=== PATIENT | female | born 1955 | race Caucasian/White ===

== ENCOUNTER 2016-09-29 07:27 | Emergency (ER) | payer MEDICAID ==
[2016-09-29 07:33] VITALS: BMI 30.2
--- NOTE | 2016-09-29 08:07 | ED PDOC ---
Arrival/HPI - General Chief Complaint: Upper Extremity Problem/Injury Time Seen by Provider: 09/29/16 07:29 Historian: Patient - History of Present Illness Narrative History of Present Illness (Text): 09/29/16 08:01 Carina Abbott is a 61 year old female, whose past medical history includes hypertension, diabetes, hyperlipidemia, TIA, diabetic neuropathy, and GERD, presents to the emergency department complaining of right arm swelling and right forearm pain since yesterday. Patient notes that a recent angiogram through the left arm was done 4 days prior, per orders from . Patient also complains of 2 month duration of right shoulder pain. MRI of shoulder for these symptoms showed a supraspinous tear and subcoracoid bursitis. She also complains of right facial numbness, which she notes has been constant since her last stroke. Patient has followed up with orthopedist, Dr. Sue, from [facility] who recommended physical therapy. Denies any fever, chills, headache, dizziness, chest pain, difficulty breathing, nausea, vomiting, diarrhea, urinary symptoms or any other complaints at this time. Time/Duration: Other (yesterday ) Symptom Onset: Gradual Symptom Course: Unchanged Severity Level: Mild Activities at Onset: Light Context: Home Past Medical History - Provider Review Nursing Documentation Reviewed: Yes - Infectious Disease Hx of Infectious Diseases: None - Tetanus Immunization Tetanus Immunization: Unknown - Cardiac Hx Pacemaker: No - Pulmonary Hx Respiratory Disorders: No - Neurological Hx Paralysis: No - HEENT Hx Cataracts: Yes (bilateral surgery) Hx Deafness: Yes (hearing aids) - Renal Hx Renal Disorder: No - Endocrine/Metabolic Hx Endocrine Disorders: Yes Hx Diabetes Mellitus Type 2: Yes - Hematological/Oncological Hx Blood Transfusions: Yes (AGE 32) Hx Blood Transfusion Reaction: No - Integumentary Hx Dermatological Disorder: No - Musculoskeletal/Rheumatological Hx Musculoskeletal Disorders: Yes - Gastrointestinal Hx Gastrointestinal Disorders: Yes Hx Gastroesophageal Reflux: Yes (occasionally with spicy foods) - Genitourinary/Gynecological Hx Genitourinary Disorders: No - Psychiatric Hx Emotional Abuse: No Hx Physical Abuse: No Hx Substance Use: No - Surgical History Hx Cholecystectomy: Yes Hx Gastric Bypass Surgery: Yes Hx Hysterectomy: Yes Other/Comment: hernia surgery; surgery of her nose - Anesthesia Hx Anesthesia Reactions: No Hx Malignant Hyperthermia: No - Suicidal Assessment Feels Threatened In Home Enviroment: No Family/Social History - Physician Review Nursing Documentation Reviewed: Yes Family/Social History: No Known Family HX Smoking Status: Never Smoked Hx Alcohol Use: No Hx Substance Use: No Hx Substance Use Treatment: No Allergies/Home Meds Allergies/Adverse Reactions: Allergies Penicillins Allergy (Verified 09/29/16 07:33) ANAPHYLAXIS Home Medications: Home Meds Medication Instructions Recorded Confirmed Ferrous Sulfate [Feosol] 325 mg PO BID 08/13/16 09/29/16 Glimepiride [Amaryl] 4 mg PO DAILY 08/13/16 09/29/16 Losartan [Cozaar] 50 mg PO DAILY 08/13/16 09/29/16 Omeprazole 40 mg PO DAILY 08/13/16 09/29/16 Pravastatin Sodium [Pravachol] 20 mg PO DAILY 08/13/16 09/29/16 Insulin Glargine, Recombina 14 unit SC ACD 09/18/16 09/29/16 [Lantus] Insulin Glargine, Recombina 20 unit SC ACB 09/18/16 09/29/16 [Lantus] Multivitamin [Daily Divina] 1 tab PO DAILY 09/18/16 09/29/16 Pioglitazone [Actos] 15 mg PO DAILY 09/18/16 09/29/16 Gabapentin [Neurontin] 400 mg PO BID 09/26/16 09/29/16 metFORMIN [glucOPHAGE] 500 mg PO BID 09/26/16 09/29/16 Review of Systems - Review of Systems Constitutional: Normal. absent: Fatigue, Fevers ENT: Other (right sided facial numbness ) Respiratory: absent: SOB, Cough, Sputum Cardiovascular: absent: Chest Pain Gastrointestinal: absent: Diarrhea, Nausea, Vomiting Genitourinary Female: absent: Dysuria Musculoskeletal: Other (right shoulder pain (chronic). Right arm swelling with forearm pain since yesterday. ) Skin: Normal. absent: Rash Psychiatric: Normal Physical Exam - Physical Exam Narrative Physical Exam (Text): Constitutional: No acute distress. Head: Normocephalic. Atraumatic. Eyes: PERRL. ENT: Moist mucous membranes. Neck: Supple. Cardiovascular: Regular rate. Chest: No tenderness. Respiratory: Clear to auscultation bilaterally. GI: Soft. Nontender. Nondistended. Back: No CVA tenderness. Musculoskeletal: Right arm swollen. Full range of motion all joints of right arm. Normal pulses. Neurovascular intact. Skin: No rash. Neurologic: Alert, no focal deficit. Vital Signs Reviewed: Yes Vital Signs Temp Pulse Resp BP Pulse Ox 09/29/16 10:16 97.6 F 82 20 116/58 L 98 09/29/16 08:35 97.5 F L 82 20 118/68 98 Temperature: Afebrile Blood Pressure: Normal Pulse: Regular Respiratory Rate: Normal Appearance: Positive for: Well-Appearing, Non-Toxic, Comfortable Pain Distress: None Mental Status: Positive for: Alert and Oriented X 3 Medical Decision Making ED Course and Treatment: 09/29/16 08:09 Impression: A 61 year old female who presents to the ed complaining of right arm swelling and right forearm pain. Plan: -- Labs -- Duplex Upper extremity -- Reassess and disposition Prior Visits: Notes and results from previous visits were reviewed. Progress Notes: 09/29/16 09:31 Spoke with Berry Kitchen over phone: Negative for DVT. Edema is likely from patient's chronic MSK conditions of the shoulder/neck. No new neurological symptoms. Labs unremarkable. I discussed this case with Dr. Grover via phone, she agrees with plan and states patient can follow up with him in the office. I instructed the patient to return to the ER for worsening pain, new neurological symptoms, cold or discolored arm. - Lab Interpretations Lab Results: 09/29/16 09:01 09/29/16 09:01 Lab Results 09/29/16 09:01: WBC 7.4, RBC 4.08, Hgb 10.2 L, Hct 31.1 L, MCV 76.2 L, MCH 25.0 , MCHC 32.8, RDW 16.3 H, Plt Count 229, MPV 9.2, Gran % 59.8, Lymph % (Auto) 32.4, Grand % (Auto) 6.1 H, Eos % (Auto) 1.6, Baso % (Auto) 0.1, Gran # 4.42, Lymph # 2.4, Grand # 0.5, Eos # 0.1, Baso # 0.01, Sodium 139, Potassium 4.3, Chloride 102, Carbon Dioxide 27, Anion Gap 14, BUN 12, Creatinine 0.6, Est GFR ( Amer) > 60, Est GFR (Non-Af Amer) > 60, Random Glucose 103, Calcium 9.3 , Total Bilirubin 0.7, AST 27, ALT 23, Alkaline Phosphatase 61, Total Protein 7.6, Albumin 3.8, Globulin 3.8, Albumin/Globulin Ratio 1.0 L, Triglycerides 157 , Cholesterol 153, LDL Cholesterol Direct 77, HDL Cholesterol 38 I have reviewed the lab results: Yes - RAD Interpretation Radiology Orders: 09/29/16 07:57 DUPLEX UPPER EXTRM VEIN RIGHT [US] Stat Drafter Marine: Radiologist - [place] Statement The provider has reviewed the documentation as recorded by the [place] Anirudh Mensah Provider Attestation: All medical record entries made by the [place] were at my direction and personally dictated by me. I have reviewed the chart and agree that the record accurately reflects my personal performance of the history, physical exam, medical decision making, and the department course for this patient. I have also personally directed, reviewed, and agree with the discharge instructions and disposition. Disposition/Present on Arrival - Present on Arrival Any Indicators Present on Arrival: No History of DVT/PE: No History of Uncontrolled Diabetes: No Urinary Catheter: No History of Decub. Ulcer: No History Surgical Site Infection Following: None - Disposition Have Diagnosis and Disposition been Completed?: Yes Diagnosis: Swelling of right upper extremity Disposition: HOME/ ROUTINE Disposition Time: 10:21 Patient Plan: Discharge Patient Problems: Current Active Problems Problem Status Diagnosed Right arm numbness Acute Right facial numbness Acute Swelling of right upper extremity Acute TIA (transient ischemic attack) Acute Condition: STABLE Discharge Instructions (ExitCare): Arm Pain (ED) Prescriptions: Methocarbamol [Robaxin-750] 750 mg PO QPM #5 tablet Referrals: Deisi Grover MD [Family Provider] - Follow up with primary
[2016-09-29 09:02] LABS: ADD MANUAL DIFF? NO
[2016-09-29 09:09] LABS: BASO # 0.01 K/mm3 (0.0-2.0); BASO % 0.1 % (0.0-3.0); EOS # 0.1 (0.0-0.7); EOS % 1.6 % (1.5-5.0); GRAN # 4.42 (1.4-6.5); GRAN % 59.8 % (50.0-68.0); HEMATOCRIT 31.1 % (36.0-48.0); LYMPH # 2.4 (1.2-3.4); LYMPH % 32.4 % (22.0-35.0); MEAN CELL VOLUME 76.2 fL (80.0-105.0); MEAN CORPUSCULAR HGB CONC 32.8 g/dl (31.0-37.0); MEAN PLATELET VOLUME 9.2 fl (7.0-11.0); MONO # 0.5 (0.1-0.6); MONO % 6.1 % (1.0-6.0); PLATELET COUNT 229 10^3/uL (120.0-450.0); RED CELL DISTRIBUTION WIDTH 16.3 % (11.5-14.5); WHITE BLOOD COUNT 7.4 10^3/ul (4.5-11.0)
[2016-09-29 09:16] LABS: ALKALINE PHOSPHATASE 61 U/L (38-133); ALT/SGPT 23 U/L (7-56); AST/SGOT 27 U/L (15-39); BILIRUBIN,TOTAL 0.7 mg/dL (0.2-1.3); BLOOD UREA NITROGEN 12 mg/dL (7-21); CALCIUM 9.3 mg/dL (8.4-10.5); CARBON DIOXIDE 27 mmol/L (21-33); CHLORIDE 102 mmol/L (98-107); CHOLESTEROL 153 mg/dL (130-200); GFR AFRICAN-AMERICAN > 60; GLUCOSE,RANDOM 103 mg/dL (70-110); POTASSIUM 4.3 mmol/L (3.6-5.0); SODIUM 139 mmol/L (132-148); TOTAL PROTEIN 7.6 g/dL (5.8-8.3)
[2016-09-29 10:17] VITALS: TEMP 97.6
[2016-09-29 11:26] VITALS: BP 117/67; PULSE 83; RESP 18; O2SAT 97
--- NOTE | 2016-09-29 11:40 | US ---
PROCEDURE: Right upper extremity venous US CLINICAL HISTORY: Arm pain and swelling Evaluate for deep venous thrombosis. PHYSICIAN(S): Nish Bishop M.D FINDINGS: The visualized rightinternal jugular vein is sonographically normal and compressible. No evidence of obstruction or thrombus is seen. The visualized segments of the right subclavian vein are patent with normal waveforms. No sonographic evidence of obstruction or thrombosis is seen. The visualized deep venous system of the proximal right upper extremity is sonographically normal and compressible. IMPRESSION: 1. No sonographic evidence for deep venous thrombosis in the visualized segments of the right upper extremity.
== END 2016-09-29 11:29 | disposition home or self-care (01) ==
LOC: ED 07:27
DX: M79.89 Other specified soft tissue disorders (principal)

== ENCOUNTER 2016-11-09 23:01 | Emergency (ER) | payer MEDICAID ==
[2016-11-10 00:05] VITALS: BMI 29.9
[2016-11-10 00:10] VITALS: BP 113/56; PULSE 84; RESP 16; TEMP 97.9; O2SAT 97
--- NOTE | 2016-11-10 00:34 | ED PDOC ---
Arrival/HPI - General Chief Complaint: Eye Problem Time Seen by Provider: 11/10/16 00:25 Historian: Patient - History of Present Illness Narrative History of Present Illness (Text): 11/10/16 00:36 61yo female present with complaint of eyes irritation x days. States her eyes itches all the time. States she saw her PMD was was given Claritin and using OTC itchy eyes drops without relieve. Denies pain, visual acuity changes ,any other complaint. Past Medical History - Provider Review Nursing Documentation Reviewed: Yes - Infectious Disease Hx of Infectious Diseases: None - Tetanus Immunization Tetanus Immunization: Unknown - Cardiac Hx Pacemaker: No - Pulmonary Hx Respiratory Disorders: No - Neurological Hx Paralysis: No - HEENT Hx Cataracts: Yes (bilateral surgery) Hx Deafness: Yes (hearing aids) - Renal Hx Renal Disorder: No - Endocrine/Metabolic Hx Endocrine Disorders: Yes Hx Diabetes Mellitus Type 2: Yes - Hematological/Oncological Hx Blood Transfusions: Yes (AGE 32) Hx Blood Transfusion Reaction: No - Integumentary Hx Dermatological Disorder: No - Musculoskeletal/Rheumatological Hx Musculoskeletal Disorders: Yes - Gastrointestinal Hx Gastrointestinal Disorders: Yes Hx Gastroesophageal Reflux: Yes (occasionally with spicy foods) - Genitourinary/Gynecological Hx Genitourinary Disorders: No - Psychiatric Hx Emotional Abuse: No Hx Physical Abuse: No Hx Substance Use: No - Surgical History Hx Cholecystectomy: Yes Hx Gastric Bypass Surgery: Yes Hx Hysterectomy: Yes Other/Comment: hernia surgery; surgery of her nose - Anesthesia Hx Anesthesia Reactions: No Hx Malignant Hyperthermia: No - Suicidal Assessment Feels Threatened In Home Enviroment: No Family/Social History - Physician Review Nursing Documentation Reviewed: Yes Family/Social History: Unknown Family HX Smoking Status: Never Smoked Hx Alcohol Use: No Hx Substance Use: No Hx Substance Use Treatment: No Allergies/Home Meds Allergies/Adverse Reactions: Allergies Penicillins Allergy (Verified 11/10/16 00:05) ANAPHYLAXIS Home Medications: Home Meds Medication Instructions Recorded Confirmed Ferrous Sulfate [Feosol] 325 mg PO BID 08/13/16 11/10/16 Glimepiride [Amaryl] 4 mg PO DAILY 08/13/16 11/10/16 Losartan [Cozaar] 50 mg PO DAILY 08/13/16 11/10/16 Omeprazole 40 mg PO DAILY 08/13/16 11/10/16 Pravastatin Sodium [Pravachol] 20 mg PO DAILY 08/13/16 11/10/16 Insulin Glargine, Recombina 14 unit SC ACD 09/18/16 11/10/16 [Lantus] Insulin Glargine, Recombina 20 unit SC ACB 09/18/16 11/10/16 [Lantus] Multivitamin [Daily Divina] 1 tab PO DAILY 09/18/16 11/10/16 Pioglitazone [Actos] 15 mg PO DAILY 09/18/16 11/10/16 Gabapentin [Neurontin] 400 mg PO BID 09/26/16 11/10/16 metFORMIN [glucOPHAGE] 500 mg PO BID 09/26/16 11/10/16 Cetirizine HCl [All Day Allergy 10 mg PO BID 11/10/16 11/10/16 Relief] Ketotifen Fumarate [Ketotifen 1 drop BOTHEYES BID 11/10/16 11/10/16 Fumarate] Propylene Glycol/Peg 400/Pf 1 drop BOTHEYES BID 11/10/16 11/10/16 [Systane 0.3-0.4% Eye Drops] Review of Systems - Physician Review All systems were reviewed & negative as marked: Yes - Review of Systems Constitutional: Normal Eyes: Other (b/l eyes irritation) ENT: Normal Respiratory: Normal Cardiovascular: Normal Gastrointestinal: Normal Genitourinary Female: Normal Musculoskeletal: Normal Skin: Normal Neurological: Normal Endocrine: Normal Hemo/Lymphatic: Normal Psychiatric: Normal Physical Exam Vital Signs Reviewed: Yes Vital Signs Temp Pulse Resp BP Pulse Ox 11/10/16 00:09 97.9 F 84 16 113/56 L 97 Temperature: Afebrile Blood Pressure: Normal Pulse: Regular Respiratory Rate: Normal Appearance: Positive for: Well-Appearing, Non-Toxic, Comfortable Pain Distress: None Mental Status: Positive for: Alert and Oriented X 3 - Systems Exam Head: Present: Atraumatic, Normocephalic Pupils: Present: PERRL Extroacular Muscles: Present: EOMI Conjunctiva: Present: Icteric (B/L redness). No: Injected Mouth: Present: Moist Mucous Membranes Neck: Present: Normal Range of Motion Respiratory/Chest: Present: Clear to Auscultation, Good Air Exchange. No: Respiratory Distress, Accessory Muscle Use Cardiovascular: Present: Regular Rate and Rhythm, Normal S1, S2. No: Murmurs Abdomen: Present: Normal Bowel Sounds. No: Tenderness, Distention, Peritoneal Signs Back: Present: Normal Inspection Upper Extremity: Present: Normal Inspection. No: Cyanosis, Edema Lower Extremity: Present: Normal Inspection. No: Edema Neurological: Present: GCS=15, CN II-XII Intact, Speech Normal Skin: Present: Warm, Dry, Normal Color. No: Rashes Psychiatric: Present: Alert, Oriented x 3, Normal Insight, Normal Concentration Disposition/Present on Arrival - Present on Arrival Any Indicators Present on Arrival: No History of DVT/PE: No History of Uncontrolled Diabetes: No Urinary Catheter: No History of Decub. Ulcer: No History Surgical Site Infection Following: None - Disposition Have Diagnosis and Disposition been Completed?: Yes Diagnosis: Allergic conjunctivitis Disposition: HOME/ ROUTINE Disposition Time: 00:40 Patient Plan: Discharge Condition: STABLE Discharge Instructions (ExitCare): Conjunctivitis (ED) Additional Instructions: Follow up with your Doctor/Heel Seat Flap Stapler Return to ED for any new or worsening symptoms Prescriptions: Olopatadine 0.1% Opht [Patanol 0.1% Opht Soln] 5 ml OD BID #1 bottle Referrals: Ramon Goldstein [Staff Provider] - Follow up with primary
== END 2016-11-10 01:34 | disposition home or self-care (01) ==
LOC: ED 23:01
DX: H10.13 Acute atopic conjunctivitis, bilateral (principal)

== ENCOUNTER 2017-08-23 17:53 | Emergency (ER) | payer MEDICAID ==
[2017-08-23 17:54] VITALS: BMI 29.9
== END 2017-08-23 20:54 | disposition left against medical advice (07) ==
LOC: ED 17:53
DX: Z02.89 Encounter for other administrative examinations (principal); R42 Dizziness and giddiness

== ENCOUNTER 2017-08-23 22:58 | Emergency (ER) | payer MEDICAID ==
[2017-08-23 23:14] VITALS: BMI 30.2
[2017-08-23] MEDS ORDERED: Sodium Chloride 0.9% 1,000 ML IV STA (23:36)
--- NOTE | 2017-08-23 23:41 | ED PDOC ---
Arrival/HPI - General Chief Complaint: GI Problem Time Seen by Provider: 08/23/17 23:02 Historian: Patient, Family - Critical Care Narrative Critical Care (Text): you were treated in the ED today for history of hypertension, diabetes, stroke with right facial numbness, recent hospitalization in [facility] for chest pain, CTA chest negative for pulmonary embolism/consolidation 08/19/17 with discharge for chest pain/gastroenteritis, and now having persistent diarrhea with fatigue and you were otherwise without any nausea/vomiting/headache/ dizziness/difficulty breathing/chest pain/abdomen pain/numbness/tingling/loss of limb function. 08/23/17 23:37 - History of Present Illness Time/Duration: Other (5 days) Symptom Course: Unchanged Activities at Onset: Rest Context: Sitting Past Medical History - Provider Review Nursing Documentation Reviewed: Yes - Travel History Have you recently traveled outside [place] w/in the past 3 mons?: No - Infectious Disease Hx of Infectious Diseases: None - Tetanus Immunization Tetanus Immunization: Unknown - Cardiac Hx Hypertension: Yes Hx Pacemaker: No - Pulmonary Hx Respiratory Disorders: No - Neurological Hx Paralysis: No - HEENT Hx Cataracts: Yes (bilateral surgery) Hx Deafness: Yes (hearing aids) - Renal Hx Renal Disorder: No - Endocrine/Metabolic Hx Endocrine Disorders: Yes Hx Diabetes Mellitus Type 2: Yes - Hematological/Oncological Hx Blood Transfusions: Yes (AGE 32) Hx Blood Transfusion Reaction: No - Integumentary Hx Dermatological Disorder: No - Musculoskeletal/Rheumatological Hx Musculoskeletal Disorders: Yes - Gastrointestinal Hx Gastrointestinal Disorders: Yes Hx Gastroesophageal Reflux: Yes (occasionally with spicy foods) - Genitourinary/Gynecological Hx Genitourinary Disorders: No - Psychiatric Hx Emotional Abuse: No Hx Physical Abuse: No Hx Substance Use: No - Surgical History Hx Cholecystectomy: Yes Hx Gastric Bypass Surgery: Yes Hx Hysterectomy: Yes Other/Comment: hernia surgery; surgery of her nose - Anesthesia Hx Anesthesia Reactions: No Hx Malignant Hyperthermia: No - Suicidal Assessment Feels Threatened In Home Enviroment: No Family/Social History - Physician Review Nursing Documentation Reviewed: Yes Family/Social History: No Known Family HX Smoking Status: Never Smoked Hx Alcohol Use: No Hx Substance Use: No Hx Substance Use Treatment: No Allergies/Home Meds Allergies/Adverse Reactions: Allergies Penicillins Allergy (Verified 08/24/17 01:49) ANAPHYLAXIS Home Medications: Home Meds Medication Instructions Recorded Confirmed Ferrous Sulfate [Feosol] 325 mg PO BID 08/13/16 08/24/17 Glimepiride [Amaryl] 4 mg PO DAILY 08/13/16 08/24/17 Losartan [Cozaar] 50 mg PO DAILY 08/13/16 08/24/17 Omeprazole 40 mg PO DAILY 08/13/16 08/24/17 Pravastatin Sodium [Pravachol] 20 mg PO DAILY 08/13/16 08/24/17 Insulin Glargine, Recombina 14 unit SC ACD 09/18/16 08/24/17 [Lantus] Insulin Glargine, Recombina 20 unit SC ACB 09/18/16 08/24/17 [Lantus] Multivitamin [Daily Divina] 1 tab PO DAILY 09/18/16 08/24/17 Pioglitazone [Actos] 15 mg PO DAILY 09/18/16 08/24/17 Gabapentin [Neurontin] 400 mg PO BID 09/26/16 08/24/17 metFORMIN [glucOPHAGE] 500 mg PO BID 09/26/16 08/24/17 Cetirizine HCl [All Day Allergy 10 mg PO BID 11/10/16 08/24/17 Relief] Ketotifen Fumarate [Ketotifen 1 drop BOTHEYES BID 11/10/16 08/24/17 Fumarate] Propylene Glycol/Peg 400/Pf 1 drop BOTHEYES BID 11/10/16 08/24/17 [Systane 0.3-0.4% Eye Drops] Review of Systems - Review of Systems Constitutional: Fatigue Eyes: Normal ENT: Normal Respiratory: Normal Cardiovascular: Normal Gastrointestinal: Stool Changes Genitourinary Female: Normal Musculoskeletal: Normal Skin: Normal Neurological: Normal Endocrine: Normal Hemo/Lymphatic: Normal Psychiatric: Normal Physical Exam Vital Signs Reviewed: Yes Vital Signs Temp Pulse Resp BP Pulse Ox 08/23/17 23:11 98.2 F 87 20 148/71 95 08/23/17 23:09 98.2 F 86 16 148/71 97 Temperature: Afebrile Blood Pressure: Hypertensive Pulse: Regular Respiratory Rate: Normal Appearance: Positive for: Well-Appearing, Non-Toxic, Comfortable Pain Distress: None Mental Status: Positive for: Alert and Oriented X 3 - Systems Exam Head: Present: Atraumatic, Normocephalic Pupils: Present: PERRL Extroacular Muscles: Present: EOMI Conjunctiva: Present: Normal Ears: Present: Normal Mouth: Present: Moist Mucous Membranes Pharnyx: Present: Normal Nose (External): Present: Atraumatic Nose (Internal): Present: Normal Inspection Neck: Present: Normal Range of Motion Respiratory/Chest: Present: Clear to Auscultation, Good Air Exchange Cardiovascular: Present: Regular Rate and Rhythm Abdomen: No: Tenderness, Distention, Normal Bowel Sounds, Peritoneal Signs, Rebound, Guarding, McBurney's Point Tender, Rovsing's Sign Present, Hernias, Feeding Tubes, Ostomy Tubes, Mass/Organomegaly, Scars, Other Back: Present: Normal Inspection Upper Extremity: Present: Normal Inspection Lower Extremity: Present: Normal Inspection Neurological: Present: GCS=15, CN II-XII Intact, Speech Normal, Motor Func Grossly Intact Skin: Present: Warm, Normal Color Psychiatric: Present: Alert, Oriented x 3, Normal Insight, Normal Concentration Medical Decision Making ED Course and Treatment: you were treated in the ED today for history of hypertension, diabetes, stroke with right facial numbness, recent hospitalization in [facility] for chest pain, CTA chest negative for pulmonary embolism/consolidation 08/19/17 with discharge for chest pain/gastroenteritis, and now having persistent diarrhea with fatigue and you were otherwise without any nausea/vomiting/headache/ dizziness/difficulty breathing/chest pain/abdomen pain/numbness/tingling/loss of limb function. you were sitting up, comfortable, alert/oriented, good strength/sensation, no change in sensation of the face, no abdomen tenderness, pink skin, no fever temp 98.2, stable heart rate 86, stable breathing rate 16, excellent oxygen level 97 room air, elevated blood pressure 148/71 which we recommend followup primary care 2-3 days repeat and determine further treatment , no infection count on blood tests 6.3, stable blood levels hemaglobin/ platelet 9.9/238, stable chemistry, blood sugar 181 mildly elevated, heart blood test normal, radiology ct head no acute findings, ECG normal sinus rhythm , intravenous fluids/observation done in the ED, had a long discussion with Dr. Cartagena who stated you can be admitted to the hospital and you and your daughter wanted to go home and thus Dr. Cartagena stated you can call her office this Friday to make earliest appointment and counselled to drink fluids and advance diet as tolerated, and discharged home with your daughter. 1. recommend followup primary care 1-2 days to determine further care. 2. if any worsening pain, fever, chills, nausea, vomiting, any medical condition then return to the ED. 08/24/17 03:11 ct head (1) Nonspecific white matter changes. No acute bleeding Reassessment Condition: Improved - Lab Interpretations Lab Results: 08/24/17 00:00 08/24/17 00:00 Lab Results 08/24/17 00:00: Sodium 139, Potassium 4.1, Chloride 106, Carbon Dioxide 23, Anion Gap 14, BUN 17, Creatinine 0.7, Est GFR ( Amer) > 60, Est GFR (Non- Af Amer) > 60, Random Glucose 181 H, Calcium 9.5, Magnesium 1.3 L, Total Bilirubin 0.5, AST 29, ALT 37, Alkaline Phosphatase 55, Lactate Dehydrogenase 483, Total Creatine Kinase 83, Troponin I < 0.01, Total Protein 6.9, Albumin 3.4 , Globulin 3.5, Albumin/Globulin Ratio 1.0 L 08/24/17 00:00: PT 13.2 H, INR 1.15 H, APTT 25.8 08/24/17 00:00: WBC 6.3, RBC 3.86, Hgb 9.9 L, Hct 30.3 L, MCV 78.5 L, MCH 25.6, MCHC 32.7, RDW 14.7 H, Plt Count 238, MPV 9.9, Gran % 48.3 L, Lymph % (Auto) 38.9 H, Lanier % (Auto) 9.8 H, Eos % (Auto) 2.7, Baso % (Auto) 0.3, Gran # 3.02, Lymph # (Auto) 2.4, Lanier # (Auto) 0.6, Eos # (Auto) 0.2, Baso # (Auto) 0.02 I have reviewed the lab results: Yes - RAD Interpretation Radiology Orders: 08/23/17 23:35 HEAD W/O CONTRAST [CT] Stat Belt Dresser: Radiologist - EKG Interpretation Interpreted by ED Physician: Yes (NSR) Type: 12 lead EKG - Medication Orders Current Medication Orders: Discontinued Medications Sodium Chloride (Sodium Chloride 0.9%) 1,000 mls @ 999 mls/hr IV .Q1H1M STA Stop: 08/24/17 00:36 Last Admin: 08/24/17 00:51 Dose: 999 mls/hr eMAR Start Stop Document 08/24/17 00:51 AB (Rec: 08/24/17 00:51 AB [facility] [id number]) Intravenous Solution Start Date 08/24/17 Start Time 00:51 End Date 08/24/17 Magnesium Sulfate/Dextrose (Magnesium Sulfate 1 Gm/100 Ml D5w) 1 gm in 100 mls @ 100 mls/hr IVPB ONCE ONE Stop: 08/24/17 02:18 Last Admin: 08/24/17 01:45 Dose: 100 mls/hr eMAR Start Stop Document 08/24/17 01:45 AB (Rec: 08/24/17 01:45 AB [facility] [id number]) Intravenous Solution Start Date 08/24/17 Start Time 01:45 End Date 08/24/17 End time 02:45 Total Infusion Time 60 Disposition/Present on Arrival - Present on Arrival Any Indicators Present on Arrival: No History of DVT/PE: No History of Uncontrolled Diabetes: No Urinary Catheter: No History of Decub. Ulcer: No History Surgical Site Infection Following: None - Disposition Have Diagnosis and Disposition been Completed?: Yes Diagnosis: Gastroenteritis Disposition: HOME/ ROUTINE Disposition Time: 03:15 Patient Plan: Discharge Patient Problems: Current Active Problems Problem Status Onset Gastroenteritis Acute Condition: IMPROVED Additional Instructions: you were treated in the ED today for history of hypertension, diabetes, stroke with right facial numbness, recent hospitalization in [facility] for chest pain, CTA chest negative for pulmonary embolism/consolidation 08/19/17 with discharge for chest pain/gastroenteritis, and now having persistent diarrhea with fatigue and you were otherwise without any nausea/vomiting/headache/ dizziness/difficulty breathing/chest pain/abdomen pain/numbness/tingling/loss of limb function. you were sitting up, comfortable, alert/oriented, good strength/sensation, no change in sensation of the face, no abdomen tenderness, pink skin, no fever temp 98.2, stable heart rate 86, stable breathing rate 16, excellent oxygen level 97 room air, elevated blood pressure 148/71 which we recommend followup primary care 2-3 days repeat and determine further treatment , no infection count on blood tests 6.3, stable blood levels hemaglobin/ platelet 9.9/238, stable chemistry, blood sugar 181 mildly elevated, heart blood test normal, radiology ct head no acute findings, ECG normal sinus rhythm , intravenous fluids/observation done in the ED, had a long discussion with Dr. Cartagena who stated you can be admitted to the hospital and you and your daughter wanted to go home and thus Dr. Cartagena stated you can call her office this Friday to make earliest appointment and counselled to drink fluids and advance diet as tolerated, and discharged home with your daughter. 1. recommend followup primary care 1-2 days to determine further care. 2. if any worsening pain, fever, chills, nausea, vomiting, any medical condition then return to the ED. Referrals: Deisi Grover MD [Primary Care Provider] - Follow up with primary Forms: [employer] (Slovenian)
[2017-08-24 01:02] LABS: BASO # 0.02 K/mm3 (0.0-2.0); BASO % 0.3 % (0.0-3.0); EOS # 0.2 (0.0-0.7); EOS % 2.7 % (1.5-5.0); GRAN # 3.02 (1.4-6.5); GRAN % 48.3 % (50.0-68.0); HEMOGLOBIN 9.9 g/dL (12.0-16.0); LYMPH # 2.4 (1.2-3.4); LYMPH % 38.9 % (22.0-35.0); MEAN CELL VOLUME 78.5 fl (80.0-105.0); MEAN CORPUSCULAR HEMOGLOBIN 25.6 pg (25.0-35.0); MEAN CORPUSCULAR HGB CONC 32.7 g/dl (31.0-37.0); MEAN PLATELET VOLUME 9.9 fl (7.0-11.0); MONO # 0.6 (0.1-0.6); MONO % 9.8 % (1.0-6.0); RBC 3.86 10^6/uL (3.5-6.1); RED CELL DISTRIBUTION WIDTH 14.7 % (11.5-14.5); WHITE BLOOD COUNT 6.3 10^3/ul (4.5-11.0)
[2017-08-24 01:12] LABS: INR 1.15 (0.93-1.08); PARTIAL THROMBOPLASTIN TIME 25.8 Seconds (25.1-36.5); PROTHROMBIN TIME 13.2 SECONDS (9.4-12.5)
[2017-08-24 01:13] LABS: ALBUMIN 3.4 g/dL (3.0-4.8); ALT/SGPT 37 U/L (7-56); AST/SGOT 29 U/L (14-36); BLOOD UREA NITROGEN 17 mg/dL (7-21); CALCIUM 9.5 mg/dL (8.4-10.5); GFR AFRICAN-AMERICAN > 60; GFR NON-AFRICAN AMERICAN > 60; MAGNESIUM 1.3 mg/dL (1.7-2.2)
[2017-08-24] MEDS ORDERED: Magnesium Sulfate 1 gm in D5W 1 GM/100 ML BAG IVPB ONE (01:19)
[2017-08-24 01:24] LABS: TROPONIN I < 0.01 ng/mL
--- NOTE | 2017-08-24 02:21 | CT ---
EXAM: CT Head Without Intravenous Contrast CLINICAL HISTORY: 61 years old, female; Signs and symptoms; Weakness, extremity; Additional info: 61yof, weakness TECHNIQUE: Axial computed tomography images of the head/brain without intravenous contrast. All CT scans at this facility use one or more dose reduction techniques, viz.: automated exposure control; ma/kV adjustment per patient size (including targeted exams where dose is matched to indication; i.e. head); or iterative reconstruction technique. Coronal and sagittal reformatted images were created and reviewed. COMPARISON: CT - HEAD W/O CONTRAST 2016-08-13 19:26 FINDINGS: Brain: Mild atrophy. No intracranial hemorrhage. No mass. Minimal decreased attenuation within periventricular white matter. Probable chronic lacunar infarcts within thalami. No definite edema. Ventricles: No hydrocephalus. Bones/joints: No acute fracture. Soft tissues: Unremarkable. Vasculature: Mild atherosclerotic disease of intracranial arteries. Sinuses: Scattered minimal mucosal thickening. Mastoid air cells: No mastoid effusion. Orbits: Unremarkable as visualized. IMPRESSION: 1. Nonspecific white matter changes. Acute infarction may be CT occult within first 24 hours. If a focal deficit persists, consider followup CT or MRI for further evaluation. 2. Incidental/non-acute findings are described above.
[2017-08-24 03:34] VITALS: RESP 16; TEMP 98.6; O2SAT 100
[2017-08-24 03:35] VITALS: BP 138/80; PULSE 78
--- NOTE | 2017-08-24 21:36 | CARD ---
APPROVED REPORT EKG Measurement Heart [id number] <Conclusion> Normal sinus rhythm Normal ECG
== END 2017-08-24 03:34 | disposition home or self-care (01) ==
LOC: ED 22:58
DX: K52.9 Noninfective gastroenteritis and colitis, unspecified (principal)
CPT/HCPCS: 70450; 80053; 82550; 83615; 83735; 84484; 85025; 85610; 85730; 93005; 96365; 99284; J3475; J7040

== ENCOUNTER 2017-09-22 18:36 | Inpatient (IN) | payer MEDICAID ==
[2017-09-22 18:36] VITALS: BMI 29.9
[2017-09-22] MEDS: Sodium Chloride 0.9% 1,000 ML IV SCH (19:15)
[2017-09-22 19:45] LABS: BASO # 0.02 K/mm3 (0.0-2.0); BASO % 0.3 % (0.0-3.0); EOS # 0.2 (0.0-0.7); EOS % 2.5 % (1.5-5.0); GRAN # 4.71 (1.4-6.5); GRAN % 59.2 % (50.0-68.0); HEMOGLOBIN 10.9 g/dL (12.0-16.0); LYMPH # 2.6 (1.2-3.4); LYMPH % 33.2 % (22.0-35.0); MEAN CELL VOLUME 79.9 fl (80.0-105.0); MEAN CORPUSCULAR HEMOGLOBIN 26.1 pg (25.0-35.0); MEAN CORPUSCULAR HGB CONC 32.7 g/dl (31.0-37.0); MEAN PLATELET VOLUME 10.5 fl (7.0-11.0); MONO # 0.4 (0.1-0.6); MONO % 4.8 % (1.0-6.0); RBC 4.17 10^6/uL (3.5-6.1); RED CELL DISTRIBUTION WIDTH 14.9 % (11.5-14.5)
[2017-09-22] MEDS ORDERED: Iohexol 350 MG/100 ML VIAL ONE (19:47)
--- NOTE | 2017-09-22 19:49 | ED PDOC ---
Arrival/HPI - General Chief Complaint: Weakness/Neurological Deficit Time Seen by Provider: 09/22/17 19:04 Historian: Patient - History of Present Illness Narrative History of Present Illness (Text): 62 y/o female w/ pmhx of HTN, HLD, DM, CVA W/ residual rt sided tongue numbness/ rt. UE numbness/ R Le numbness presents c/o rt sided tongue numbness/ rt. sided UE numbness (most pronounced in fingertips, median nerve teriitory ) , as weel as rt lateral thigh and calf , time of onset being in the am of friday past (). Pt also relates how in the past 48 hours she Pt denies any headache / nasuea/cp/palpitations / or any recent symptoms of infective foci. ros (+) chrocni rt shoulder/rt trapezoidal pain. 09/22/17 19:47 09/22/17 19:52 09/22/17 19:56 09/22/17 19:57 Time/Duration: < week Symptom Course: Unchanged Quality: Other (not painful ) Past Medical History - Provider Review Nursing Documentation Reviewed: Yes - Infectious Disease Hx of Infectious Diseases: None - Tetanus Immunization Tetanus Immunization: Unknown - Cardiac Hx Hypertension: Yes Hx Pacemaker: No - Pulmonary Hx Respiratory Disorders: No - Neurological Hx Paralysis: No - HEENT Hx Cataracts: Yes (bilateral surgery) Hx Deafness: Yes (hearing aids) - Renal Hx Renal Disorder: No - Endocrine/Metabolic Hx Endocrine Disorders: Yes Hx Diabetes Mellitus Type 2: Yes - Hematological/Oncological Hx Blood Transfusions: Yes (AGE 32) Hx Blood Transfusion Reaction: No - Integumentary Hx Dermatological Disorder: No - Musculoskeletal/Rheumatological Hx Musculoskeletal Disorders: Yes - Gastrointestinal Hx Gastrointestinal Disorders: Yes Hx Gastroesophageal Reflux: Yes (occasionally with spicy foods) - Genitourinary/Gynecological Hx Genitourinary Disorders: No - Psychiatric Hx Emotional Abuse: No Hx Physical Abuse: No Hx Substance Use: No - Surgical History Hx Cholecystectomy: Yes Hx Gastric Bypass Surgery: Yes Hx Hysterectomy: Yes Other/Comment: hernia surgery; surgery of her nose - Anesthesia Hx Anesthesia Reactions: No Hx Malignant Hyperthermia: No - Suicidal Assessment Feels Threatened In Home Enviroment: No Family/Social History - Physician Review Nursing Documentation Reviewed: Yes Family/Social History: No Known Family HX Smoking Status: Never Smoked Hx Alcohol Use: No Hx Substance Use: No Hx Substance Use Treatment: No Allergies/Home Meds Allergies/Adverse Reactions: Allergies Penicillins Allergy (Verified 08/24/17 01:49) ANAPHYLAXIS Home Medications: Home Meds Medication Instructions Recorded Confirmed Ferrous Sulfate [Feosol] 325 mg PO BID 08/13/16 08/24/17 Glimepiride [Amaryl] 4 mg PO DAILY 08/13/16 08/24/17 Losartan [Cozaar] 50 mg PO DAILY 08/13/16 08/24/17 Omeprazole 40 mg PO DAILY 08/13/16 08/24/17 Pravastatin Sodium [Pravachol] 20 mg PO DAILY 08/13/16 08/24/17 Insulin Glargine, Recombina 14 unit SC ACD 09/18/16 08/24/17 [Lantus] Insulin Glargine, Recombina 20 unit SC ACB 09/18/16 08/24/17 [Lantus] Multivitamin [Daily Divina] 1 tab PO DAILY 09/18/16 08/24/17 Pioglitazone [Actos] 15 mg PO DAILY 09/18/16 08/24/17 Gabapentin [Neurontin] 400 mg PO BID 09/26/16 08/24/17 metFORMIN [glucOPHAGE] 500 mg PO BID 09/26/16 08/24/17 Cetirizine HCl [All Day Allergy 10 mg PO BID 11/10/16 08/24/17 Relief] Ketotifen Fumarate [Ketotifen 1 drop BOTHEYES BID 11/10/16 08/24/17 Fumarate] Propylene Glycol/Peg 400/Pf 1 drop BOTHEYES BID 11/10/16 08/24/17 [Systane 0.3-0.4% Eye Drops] Review of Systems - Physician Review All systems were reviewed & negative as marked: Yes - Review of Systems Constitutional: Normal Eyes: Normal ENT: Normal Respiratory: Normal Cardiovascular: Normal Gastrointestinal: Normal Genitourinary Female: Normal Musculoskeletal: Normal Skin: Normal Neurological: Focal Weakness Endocrine: Normal Hemo/Lymphatic: Normal Psychiatric: Normal Physical Exam Vital Signs Reviewed: Yes Vital Signs Temp Pulse Resp BP Pulse Ox 09/22/17 18:58 98.4 F 97 H 18 150/70 98 Temperature: Afebrile Blood Pressure: Normal Pulse: Regular Respiratory Rate: Normal Appearance: Positive for: Well-Appearing, Non-Toxic, Comfortable Pain Distress: None Mental Status: Positive for: Alert and Oriented X 3 - Systems Exam Head: Present: Atraumatic, Normocephalic Pupils: Present: PERRL Extroacular Muscles: Present: EOMI Conjunctiva: Present: Normal Mouth: Present: Moist Mucous Membranes Neck: Present: Normal Range of Motion Respiratory/Chest: Present: Clear to Auscultation, Good Air Exchange. No: Respiratory Distress, Accessory Muscle Use Cardiovascular: Present: Regular Rate and Rhythm, Normal S1, S2. No: Murmurs Abdomen: Present: Normal Bowel Sounds. No: Tenderness, Distention, Peritoneal Signs Back: Present: Normal Inspection Upper Extremity: Present: Normal Inspection. No: Cyanosis, Edema Lower Extremity: Present: Normal Inspection. No: Edema Neurological: Present: GCS=15, CN II-XII Intact, Speech Normal, Motor Func Grossly Intact, Normal Cerebellar Funct, Norm Deep Tendon Reflexes, Gait Normal , Other (nihss of 1 for patchy sensory deficits in rt soded of tongue tip/rt palm/ rt 1st 3 finger tips/rt lateral LE ) ) Skin: Present: Warm, Dry, Normal Color. No: Rashes Psychiatric: Present: Alert, Oriented x 3, Normal Insight, Normal Concentration Medical Decision Making ED Course and Treatment: 61 y/o woman w/ pmh xof cva among other comorbidities presenting w/ recurring symptomatology suspicious for subacute cvs head ct cta head/neck cardiac w/u risk stratify w/ standard labs cxr ekg stroke neurologist confirmation . 09/22/17 19:59 - Lab Interpretations Lab Results: 09/22/17 19:10 09/22/17 19:10 Lab Results 09/22/17 19:10: Blood Type A POSITIVE, Antibody Screen Negative, BBK History Checked Patient has bt 09/22/17 19:10: Sodium 139, Potassium 3.7, Chloride 100, Carbon Dioxide 28, Anion Gap 15, BUN 19, Creatinine 0.5 L, Est GFR ( Amer) > 60, Est GFR ( Non-Af Amer) > 60, Random Glucose 232 H, Calcium 9.6, Total Bilirubin 0.6, AST 33, ALT 39, Alkaline Phosphatase 51, Troponin I < 0.01, NT-Pro-B Natriuret Pep 27.3, Total Protein 7.6, Albumin 4.1, Globulin 3.5, Albumin/Globulin Ratio 1.2, Triglycerides 235 H, Cholesterol 185, LDL Cholesterol Direct 95, HDL Cholesterol 47 09/22/17 19:10: PT 12.9 H, INR 1.13 H, APTT 28.1 09/22/17 19:10: WBC 8.0 D, RBC 4.17, Hgb 10.9 L, Hct 33.3 L, MCV 79.9 L, MCH 26.1, MCHC 32.7, RDW 14.9 H, Plt Count 233, MPV 10.5, Gran % 59.2, Lymph % (Auto ) 33.2, Garvin % (Auto) 4.8, Eos % (Auto) 2.5, Baso % (Auto) 0.3, Gran # 4.71, Lymph # (Auto) 2.6, Garvin # (Auto) 0.4, Eos # (Auto) 0.2, Baso # (Auto) 0.02 - RAD Interpretation Radiology Orders: 09/22/17 19:04 CHEST PORTABLE [RAD] Stat 09/22/17 19:06 CTA HEAD & NECK BUNDLE [CT] Stat 09/22/17 19:07 HEAD W/O CONTRAST [CT] Stat - Medication Orders Current Medication Orders: Sodium Chloride (Sodium Chloride 0.9%) 1,000 mls @ 100 mls/hr IV .Q10H [facility] NIHSS Scale ([place]) Time Performed: 18:30 - How Severe is the Stoke Baseline Level of Consciousness: 0=Alert LOC to Questions: 0=Both comments correct LOC to commands: 0=Obeys both correctly Best Gaze: 0=Normal Visual: 0=No visual loss Facial: 0=Normal Motor Arm - Left: 0=No drift Motor Arm - Right: 0=No drift Motor Leg - Left: 0=No drift Motor Leg - Right: 0=No drift Limb Ataxia: 0=Absent Sensory: 1=Mild to moderate loss Best Language: 0=No aphasia Dysarthia: 0=Normal articulation Extinction & Inattention (Neglect): 0=Normal, no object Score: 1 Risk Level: Minor Stroke Risk Disposition/Present on Arrival - Present on Arrival Any Indicators Present on Arrival: No History of DVT/PE: No History of Uncontrolled Diabetes: No Urinary Catheter: No History of Decub. Ulcer: No History Surgical Site Infection Following: None - Disposition Have Diagnosis and Disposition been Completed?: Yes Diagnosis: CVA (cerebral vascular accident) Disposition: HOSPITALIZED Disposition Time: 21:40 Patient Plan: Admission Condition: FAIR Referrals: Deisi Grover MD [Primary Care Provider] - Follow up with primary Forms: [employer] (Persian)
[2017-09-22 19:58] LABS: INR 1.13 (0.93-1.08); PARTIAL THROMBOPLASTIN TIME 28.1 Seconds (25.1-36.5); PROTHROMBIN TIME 12.9 SECONDS (9.4-12.5)
[2017-09-22 20:05] LABS: LDL CHOLESTEROL 95 mg/dL (0-129)
[2017-09-22 20:06] LABS: ALB/GLOB RATIO 1.2 (1.1-1.8); ALBUMIN 4.1 g/dL (3.0-4.8); ALT/SGPT 39 U/L (7-56); AST/SGOT 33 U/L (14-36); BLOOD UREA NITROGEN 19 mg/dL (7-21); CALCIUM 9.6 mg/dL (8.4-10.5); GFR AFRICAN-AMERICAN > 60; GFR NON-AFRICAN AMERICAN > 60; HDL CHOLESTEROL 47 mg/dL (29-60)
[2017-09-22 20:08] LABS: B-TYPE NATRIURETIC PEPTIDE 27.3 pg/mL (0-450); TROPONIN I < 0.01 ng/mL
--- NOTE | 2017-09-22 21:47 | CT ---
EXAM: CT Head Without Intravenous Contrast CLINICAL HISTORY: 62 years old, female; Signs and symptoms; Weakness, extremity; Right; Additional info: CVA like symptoms TECHNIQUE: Axial computed tomography images of the head/brain without intravenous contrast. All CT scans at this facility use one or more dose reduction techniques, viz.: automated exposure control; ma/kV adjustment per patient size (including targeted exams where dose is matched to indication; i.e. head); or iterative reconstruction technique. Coronal and sagittal reformatted images were created and reviewed. COMPARISON: CT - HEAD W/O CONTRAST 2017-08-24 01:15 FINDINGS: Brain: Mild atrophy. No intracranial hemorrhage. No mass. Minimal decreased attenuation within periventricular white matter. Probable chronic lacunar infarcts within thalami. No definite edema. Ventricles: No hydrocephalus. Bones/joints: No acute fracture. Soft tissues: Unremarkable. Vasculature: Mild atherosclerotic disease of intracranial arteries. Sinuses: Scattered minimal mucosal thickening. Mastoid air cells: No mastoid effusion. Orbits: Unremarkable as visualized. IMPRESSION: 1. Nonspecific white matter changes. Acute infarction may be CT occult within first 24 hours. If a focal deficit persists, consider followup CT or MRI for further evaluation. 2. Incidental/non-acute findings are described above.
--- NOTE | 2017-09-22 22:30 | CT ---
EXAM: CT Angiography Head With Intravenous Contrast CLINICAL HISTORY: The patient age is 62 years old and is female; Signs and symptoms; Weakness; Patient HX: Right side weakness; Additional info: CVA like symptoms outside tpa window Facility exam id and description: [facility] head neck bundle TECHNIQUE: Axial computed tomographic angiography images of the head with intravenous contrast using CT angiography protocol. All CT scans at this facility use one or more dose reduction techniques, viz.: automated exposure control; ma/kV adjustment per patient size (including targeted exams where dose is matched to indication; i.e. head); or iterative reconstruction technique. MIP reconstructed images were created and reviewed. Coronal and sagittal reformatted images were created and reviewed. CONTRAST: 100 mL of OMNI administered intravenously. COMPARISON: CT - HEAD W/O CONTRAST 2017-09-22 20:50 FINDINGS: Right internal carotid artery: There is atherosclerosis of the bilateral intracranial internal carotid arteries, with less than 50% stenosis bilaterally. No aneurysm. Right anterior cerebral artery: No occlusion or significant stenosis. No aneurysm. Right middle cerebral artery: There is stenosis of a proximal right M2 branch of the middle cerebral artery. There is no significant stenosis of the right M1 segment. No aneurysm. Right posterior cerebral artery: No occlusion or significant stenosis. No aneurysm. Right vertebral artery: No occlusion or significant stenosis. Left internal carotid artery: See above. Left anterior cerebral artery: No occlusion or significant stenosis. No aneurysm. Left middle cerebral artery: No occlusion or significant stenosis. No aneurysm. Left posterior cerebral artery: No occlusion or significant stenosis. No aneurysm. Left vertebral artery: No occlusion or significant stenosis. Basilar artery: There is increased tortuosity of the basilar artery. No occlusion or significant stenosis. IMPRESSION: 1. There is stenosis of a proximal right M2 branch of the middle cerebral artery. 2. There is atherosclerosis of the bilateral intracranial internal carotid arteries, with less than 50% stenosis bilaterally. 3. Incidental/non-acute findings are described above. EXAM: CT Angiography Neck With Intravenous Contrast EXAM DATE/TIME: 09/22/2017 7:06 PM CLINICAL HISTORY: The patient age is 62 years old and is female; Signs and symptoms; Weakness; Patient HX: Right side weakness; Additional info: CVA like symptoms outside tpa window Facility exam id and description: [facility] head neck bundle TECHNIQUE: Axial computed tomographic angiography images of the neck with intravenous contrast using CT angiography protocol. All CT scans at this facility use one or more dose reduction techniques, viz.: automated exposure control; ma/kV adjustment per patient size (including targeted exams where dose is matched to indication; i.e. head); or iterative reconstruction technique. MIP reconstructed images were created and reviewed. Coronal and sagittal reformatted images were created and reviewed. CONTRAST: 100 mL of OMNI administered intravenously. COMPARISON: CT - HEAD W/O CONTRAST 2017-09-22 20:50 FINDINGS: Limitations: There is a limited evaluation of the left subclavian artery due to adjacent venous enhancement. VASCULATURE: Right common carotid artery: Artifact limits evaluation of the proximal right common carotid artery. There is no significant stenosis or occlusion of this vessel. Right internal carotid artery: Mild atherosclerotic changes are identified of the proximal right internal carotid artery, with mild stenosis. The degree of stenosis is approximately 30%. No dissection or occlusion. Right external carotid artery: No occlusion. Right vertebral artery: No occlusion or significant stenosis. Left common carotid artery: No significant stenosis. No dissection or occlusion. Left internal carotid artery: There is atherosclerosis of the proximal left internal carotid artery, with approximately 50% stenosis. No dissection or occlusion. Left external carotid artery: No occlusion. Left vertebral artery: No occlusion or significant stenosis. NECK: Bones/joints: Spondylosis is visualized at multiple cervical levels. There is slight reversal of the lordotic curvature of the cervical spine. Lymph nodes: Scattered mediastinal lymph nodes are identified, a few which are mildly enlarged. These lymph nodes are nonspecific as to etiology. Sinuses: There is minimal mucosal thickening of the bilateral maxillary sinuses. Oropharynx: Calcifications are identified within the bilateral palatine tonsils. Hypopharynx: There is effacement of the left piriform sinus. CAROTID STENOSIS REFERENCE USING NASCET CRITERIA: % ICA stenosis = (1 - narrowest ICA diameter/diameter of distal cervical ICA) x 100. Mild - <50% stenosis. Moderate - 50-69% stenosis. Severe - 70-94% stenosis. Near occlusion - 95-99% stenosis. Occluded - 100% stenosis. IMPRESSION: 1. Mild atherosclerotic changes are identified of the proximal right internal carotid artery, with mild stenosis. The degree of stenosis is approximately 30%. 2. There is atherosclerosis of the proximal left internal carotid artery, with approximately 50% stenosis. 3. Scattered mediastinal lymph nodes are identified, a few which are mildly enlarged. These lymph nodes are nonspecific as to etiology. 4. There is effacement of the left piriform sinus. Further clinical evaluation is recommended. 5. Incidental/non-acute findings are described above.
--- NOTE | 2017-09-23 00:11 | CP.PCM.HP ---
History of Present Illness - History of Present Illness History of Present Illness: Koko DominguezJose Carlos PGY1 H&P Note for Hospitalist Service cc: right hand and tongue tingling x3 days Ms. Abbott is a 62 year old female with a PMH of TIA, uncontrolled diabetes mellitus, HTN, HLD, GERD, arthritis, obesity, depression and hepatitis C ( treated) who presented to ED with complaints of right sided tongue numbness and RUE numbness x3 days. The patient states that she had a similar episode last year when she was diagnosed with "mini stroke". She states that she takes Gabapentin for diabetic neuropathy but states that this numbness felt different. She denies weakness and has pain w/ her RUE movement more related to arthritis than neurovascular etiology. NIHSS done by ED MD was 1. Patient not a candidate for tPA given timeline of presentation. she denies recent illness, chest pain, shortness of breath, n/v, changes in vision or other complaints. 12- pt ROS was reviewed and is otherwise unremarkable. Past chart review shows: diagnostic cath in 09/2016 showed non-obstructive CAD w / preserved EF 65%. MRI of brain 08/2016 from time of TIA shows acute lacunar infarct. Carotid US from that time shows b/l 40-59% ICA stenoses. PMD: Dr. Grover PMH: as above PSH: gastric bypass, hernia repair, cholecystectomy Meds: as per MAR allergy: PCN SHx: denies tobacco, ETOH or illicit drug use Present on Admission - Present on Admission Any Indicators Present on Admission: Yes History of Uncontrolled Diabetes: Yes Review of Systems - Review of Systems All systems: reviewed and no additional remarkable complaints except (as per HPI ) Past Patient History - Infectious Disease Hx of Infectious Diseases: None - Tetanus Immunizations Tetanus Immunization: Unknown - Past Social History Smoking Status: Never Smoked Alcohol: None Drugs: Denies - CARDIAC Hx Hypercholesterolemia: Yes Hx Hypertension: Yes Hx Pacemaker: No - PULMONARY Hx Respiratory Disorders: No - NEUROLOGICAL Hx Paralysis: No Hx Transient Ischemic Attacks (TIA): Yes - HEENT Hx Cataracts: Yes (bilateral surgery) Hx Deafness: Yes (hearing aids) - RENAL Hx Chronic Kidney Disease: No - ENDOCRINE/METABOLIC Hx Endocrine Disorders: Yes Hx Diabetes Mellitus Type 2: Yes - HEMATOLOGICAL/ONCOLOGICAL Hx Blood Transfusions: Yes (AGE 32) Hx Blood Transfusion Reaction: No Hx Hepatitis C: Yes - INTEGUMENTARY Hx Dermatological Problems: No - MUSCULOSKELETAL/RHEUMATOLOGICAL Hx Musculoskeletal Disorders: Yes - GASTROINTESTINAL Hx Gastrointestinal Disorders: Yes Hx Gastroesophageal Reflux: Yes (occasionally with spicy foods) - GENITOURINARY/GYNECOLOGICAL Hx Genitourinary Disorders: No - PSYCHIATRIC Hx Depression: Yes Hx Emotional Abuse: No Hx Physical Abuse: No Hx Substance Use: No - SURGICAL HISTORY Hx Cardiac Catheterization: Yes Hx Cholecystectomy: Yes Hx Gastric Bypass Surgery: Yes Hx Hysterectomy: Yes Other/Comment: hernia surgery; surgery of her nose - ANESTHESIA Hx Anesthesia Reactions: No Hx Malignant Hyperthermia: No Meds Allergies/Adverse Reactions: Allergies Allergy/AdvReac Type Severity Reaction Status Date / Time Penicillins Allergy ANAPHYLAXIS Verified 08/24/17 01:49 Physical Exam - Constitutional Appears: Well, Non-toxic, No Acute Distress - Head Exam Head Exam: NORMAL INSPECTION - Eye Exam Eye Exam: EOMI, Normal appearance, PERRL - ENT Exam ENT Exam: Mucous Membranes Moist - Neck Exam Neck exam: Positive for: Normal Inspection - Respiratory Exam Respiratory Exam: Clear to Auscultation Bilateral, NORMAL BREATHING PATTERN. absent: Rales, Rhonchi, Wheezes - Cardiovascular Exam Cardiovascular Exam: RRR, +S1, +S2 - GI/Abdominal Exam GI & Abdominal Exam: Normal Bowel Sounds, Soft. absent: Distended Additional comments: obese - Extremities Exam Extremities exam: Positive for: full ROM, normal inspection. Negative for: pedal edema - Back Exam Back exam: NORMAL INSPECTION - Neurological Exam Neurological exam: Alert, Oriented x3 Additional comments: full ROM x4 extremities RUE pain w/ movement 2/2 arthritis shoulder pain sensation intact x4 extremities tingling persists but is improved no nasolabial folding changes b/l eyebrows raise appropriately - Psychiatric Exam Psychiatric exam: Normal Affect, Normal Mood Results - Vital Signs Recent Vital Signs: Last Vital Signs Temp 98.4 F 09/22/17 18:58 Pulse 87 09/22/17 23:19 Resp 16 09/22/17 23:19 BP 149/82 09/22/17 23:19 Pulse Ox 100 09/22/17 23:19 - Labs Result Diagrams: 09/22/17 19:10 09/22/17 19:10 Assessment & Plan - Assessment and Plan (Free Text) Assessment: 62 year old female with a PMH of TIA, uncontrolled diabetes mellitus, HTN, HLD, GERD, arthritis, obesity, depression and hepatitis C (treated) being admitted for stroke like symptoms in RUE x3 days. NIHSS was 1 per ED note. Patient not a candidate for tPA given timeline of symptoms. CT Head was done and showed no hemorrhage or masses, but was positive for chronic lacunar infarcts. CTA Head/ Neck done and showed stenosis of R M2 branch of MCA and atherosclerosis of intracranial ICA's <50% b/l. Patient was given ASA and Lipitor in ED and seems to be improving. EKG was SNR @ 88bpm w/ no ST/T wave changes. Plan: 1. Numbness/tingling likely 2/2 CVA vs uncontrolled diabetes - will admit to telemetry for monitoring and further workup - Lipid panel, Hemoglobin A1C ordered - Neurovascular consulted placed, recs appreciated - Neuro consulted, recs appreciated - cont patient on ASA, Lipitor and BB daily - cont NS - Neurochecks - NPO past midnight - PT/OT eval and treatment requested, recs appreciated - nurse swallow screen 2. Hx DM2 - Hemoglobin A1C ordered - ISS - Accuchecks Q6 ordered - neurontin home dose ordered 3. Hx HTN - monitor VS - currently stable - cont Losartan daily 4. Hx HLD - cont Lipitor - Lipid panel ordered 5. Hx GERD - protonix ordered for GI ppx 6. Hx Hep C - treated per prior notes on chart review - monitor for any changes - caution when using hepatotoxic drugs NPO past midnight PTX/Heparin and SCDs for GI/DVT ppx Patient was seen, examined and discussed with attending, Dr. Vivian Branch PGY1
[2017-09-23] MEDS: Pantoprazole 40 mg EC Tab PO SCH (05:46)
[2017-09-23] MEDS: Sodium Chloride 0.9% 1,000 ML IV SCH ×3 (06:06→15:15)
[2017-09-23] MEDS: Insulin Lispro (humaLOG) MEDIUM Coverage SC SCH ×3 (06:14→19:19)
[2017-09-23 06:19] LABS: HEMOGLOBIN 10.2 g/dL (12.0-16.0); MEAN CELL VOLUME 79.2 fl (80.0-105.0); MEAN CORPUSCULAR HEMOGLOBIN 25.8 pg (25.0-35.0); MEAN CORPUSCULAR HGB CONC 32.6 g/dl (31.0-37.0); MEAN PLATELET VOLUME 10.3 fl (7.0-11.0); RBC 3.95 10^6/uL (3.5-6.1); RED CELL DISTRIBUTION WIDTH 14.7 % (11.5-14.5); WHITE BLOOD COUNT 6.3 10^3/ul (4.5-11.0)
[2017-09-23 06:28] LABS: INR 1.17 (0.93-1.08); PROTHROMBIN TIME 13.5 SECONDS (9.4-12.5)
[2017-09-23 06:47] LABS: ALBUMIN 3.3 g/dL (3.0-4.8); ALT/SGPT 34 U/L (7-56); AST/SGOT 29 U/L (14-36); BLOOD UREA NITROGEN 15 mg/dL (7-21); CALCIUM 9.1 mg/dL (8.4-10.5); GFR AFRICAN-AMERICAN > 60; GFR NON-AFRICAN AMERICAN > 60
[2017-09-23] MEDS ORDERED: Potassium Chloride 20 mEq ER Tab PO ONE (06:59)
[2017-09-23] MEDS ORDERED: Magnesium Sulfate 1 gm in D5W 1 GM/100 ML BAG IVPB ONE (07:00)
[2017-09-23] MEDS ORDERED: Insulin Lispro (humaLOG) MEDIUM Coverage SC SCH (07:30)
--- NOTE | 2017-09-23 08:06 | RAD ---
HISTORY: Code Stroke COMPARISON: Portable chest 08/13/2016. FINDINGS: LUNGS: No active pulmonary disease. PLEURA: No significant pleural effusion identified, no pneumothorax apparent. CARDIOVASCULAR: Normal. OSSEOUS STRUCTURES: No significant abnormalities. VISUALIZED UPPER ABDOMEN: Normal. OTHER FINDINGS: None. IMPRESSION: No interval acute cardiopulmonary disease appreciated.
[2017-09-23 08:40] LABS: PH,URINE 6.5 (4.7-8.0); URINE BILIRUBIN NEGATIVE (NEGATIVE); URINE BLOOD TRACE-INTACT (NEGATIVE); URINE GLUCOSE (UA) NEGATIVE (NEGATIVE); URINE LEUKOCYTE ESTERASE NEGATIVE Leu/uL (NEGATIVE); URINE PROTEIN NEGATIVE mg/dL (<30 mg/dL); URINE UROBILINOGEN 0.2 E.U./dL (<1 E.U./dL)
[2017-09-23 08:49] LABS: URINE APPEARANCE CLEAR (CLEAR); URINE COLOR YELLOW (YELLOW)
[2017-09-23 08:55] LABS: URINE BACTERIA FEW (NEG); URINE WBC NEGATIVE /hpf (0-6)
[2017-09-23] MEDS: Multivitamin With Minerals Tab PO SCH (08:57)
--- NOTE | 2017-09-23 09:02 | CT ---
PROCEDURE: CT Chest without contrast HISTORY: lung eval COMPARISON: CT 04/29/2017 TECHNIQUE: Contiguous axial images were obtained through the chest without intravenous contrast enhancement. Sagittal and coronal reconstructions were performed. Radiation dose (DLP): 624 mGy-cm. This CT exam was performed using one or more of the following dose reduction techniques: Automated exposure control, adjustment of the mA and/or kV according to patient size, and/or use of iterative reconstruction technique. FINDINGS: LUNGS: There is a 9 mm nodule in the right upper lobe. This is unchanged. MEDIASTINUM: Unremarkable thoracic aorta. No aneurysm. Normal sized heart. Main pulmonary artery unremarkable. No vascular congestion. No lymphadenopathy. PLEURA: No pleural fluid. No pneumothorax. BONES: No fracture. No destructive lesion. UPPER ABDOMEN: Grossly unremarkable. OTHER FINDINGS: None. IMPRESSION: Stable appearance of 9 mm nodule in the right upper lobe
--- NOTE | 2017-09-23 10:31 | CARD ---
APPROVED REPORT EKG Measurement Heart [id number] <Conclusion> Normal sinus rhythm Normal ECG
--- NOTE | 2017-09-23 15:03 | CP.PCM.CON ---
History of Present Illness - History of Present Illness History of Present Illness: Mrs. Abbott is a 62-year-old woman with a past medical history HTN, DM ( uncontrolled), HLD, and of previous TIAs and ischemic stroke (left thalamus in ), who presented with complaints of recurrent right side numbness since Friday. The numbness mostly involves the right hand, and seems to be improving compared with yesterday. Her complaints were minor yesterday and she had an NIHSS of 1. She was clearly not a candidate for IV tPA due to being outside the time window. CT scan of the head did not show any acute findings. Review of Systems - Review of Systems All systems: reviewed and no additional remarkable complaints except Past Patient History - Infectious Disease Hx of Infectious Diseases: None - Tetanus Immunizations Tetanus Immunization: Unknown - Past Social History Smoking Status: Never Smoked Alcohol: None Drugs: Denies - CARDIAC Hx Hypercholesterolemia: Yes Hx Hypertension: Yes Hx Pacemaker: No - PULMONARY Hx Respiratory Disorders: No - NEUROLOGICAL Hx Paralysis: No Hx Transient Ischemic Attacks (TIA): Yes - HEENT Hx Cataracts: Yes (bilateral surgery) Hx Deafness: Yes (hearing aids) - RENAL Hx Chronic Kidney Disease: No - ENDOCRINE/METABOLIC Hx Endocrine Disorders: Yes Hx Diabetes Mellitus Type 2: Yes - HEMATOLOGICAL/ONCOLOGICAL Hx Blood Transfusions: Yes (AGE 32) Hx Blood Transfusion Reaction: No Hx Hepatitis C: Yes - INTEGUMENTARY Hx Dermatological Problems: No - MUSCULOSKELETAL/RHEUMATOLOGICAL Hx Musculoskeletal Disorders: Yes - GASTROINTESTINAL Hx Gastrointestinal Disorders: Yes Hx Gastroesophageal Reflux: Yes (occasionally with spicy foods) - GENITOURINARY/GYNECOLOGICAL Hx Genitourinary Disorders: No - PSYCHIATRIC Hx Depression: Yes Hx Emotional Abuse: No Hx Physical Abuse: No Hx Substance Use: No - SURGICAL HISTORY Hx Cardiac Catheterization: Yes Hx Cholecystectomy: Yes Hx Gastric Bypass Surgery: Yes Hx Hysterectomy: Yes Other/Comment: hernia surgery; surgery of her nose - ANESTHESIA Hx Anesthesia Reactions: No Hx Malignant Hyperthermia: No Meds Allergies/Adverse Reactions: Allergies Allergy/AdvReac Type Severity Reaction Status Date / Time Penicillins Allergy ANAPHYLAXIS Verified 08/24/17 01:49 - Medications Medications: Current Medications Aspirin (Aspirin Chewable) 81 mg PO DAILY [facility] Last Admin: 09/23/17 10:47 Dose: 81 mg Clopidogrel Bisulfate (Plavix) 75 mg PO DAILY [facility] Last Admin: 03/13/18 10:47 Dose: 75 mg Gabapentin (Neurontin) 400 mg PO BID [facility] PRN Reason: Protocol Last Admin: 09/23/17 09:00 Dose: 400 mg Heparin Sodium (Porcine) (Heparin) 5,000 units SC Q12 [facility] PRN Reason: Protocol Last Admin: 09/23/17 09:00 Dose: 5,000 units Sodium Chloride (Sodium Chloride 0.9%) 1,000 mls @ 100 mls/hr IV .Q10H [facility] Last Admin: 09/23/17 10:52 Dose: 100 mls/hr Insulin Human Lispro (Humalog Med) 0 units SC Q6 [facility] PRN Reason: Protocol Last Admin: 09/23/17 12:42 Dose: 3 units Losartan Potassium (Cozaar) 50 mg PO DAILY [facility] Last Admin: 09/23/17 09:00 Dose: 50 mg Multivitamins/Minerals (Therapeutic-M Tab) 1 tab PO 0800 [facility] Last Admin: 09/23/17 08:57 Dose: 1 tab Pantoprazole Sodium (Protonix Ec Tab) 40 mg PO 0600 [facility] Last Admin: 09/23/17 05:46 Dose: 40 mg Physical Exam - Constitutional Appears: Well - Head Exam Head Exam: ATRAUMATIC, NORMAL INSPECTION, NORMOCEPHALIC - Eye Exam Eye Exam: EOMI, Normal appearance, PERRL - ENT Exam ENT Exam: Mucous Membranes Moist, Normal Exam - Neck Exam Neck exam: Positive for: Normal Inspection - Respiratory Exam Respiratory Exam: Clear to Auscultation Bilateral, NORMAL BREATHING PATTERN - Cardiovascular Exam Cardiovascular Exam: REGULAR RHYTHM - Neurological Exam Neurological exam: Alert, CN II-XII Intact, Normal Gait, Oriented x3, Reflexes Normal Additional comments: NIHSS= 1 for mild numbness of the right hand, but no extinction. Results - Vital Signs Recent Vital Signs: Last Vital Signs Temp 98 F 09/23/17 12:58 Pulse 84 09/23/17 12:58 Resp 20 09/23/17 12:58 BP 174/80 H 09/23/17 12:58 Pulse Ox 94 L 09/23/17 06:07 - Labs Result Diagrams: 09/23/17 06:00 09/23/17 06:00 Labs: Laboratory Results - last 24 hr 09/23/17 09/23/17 09/23/17 06:00 06:00 06:00 WBC 6.3 D RBC 3.95 Hgb 10.2 L Hct 31.3 L MCV 79.2 L MCH 25.8 MCHC 32.6 RDW 14.7 H Plt Count 196 MPV 10.3 PT 13.5 H INR 1.17 H Sodium 139 Potassium 3.5 L Chloride 103 Carbon Dioxide 27 Anion Gap 12 BUN 15 Creatinine 0.5 L Est GFR ( Amer) > 60 Est GFR (Non-Af Amer) > 60 POC Glucose (mg/dL) Random Glucose 206 H Calcium 9.1 Phosphorus 3.8 Magnesium 1.4 L Total Bilirubin 0.4 AST 29 ALT 34 Alkaline Phosphatase 45 Total Protein 6.6 Albumin 3.3 Globulin 3.3 Albumin/Globulin Ratio 1.0 L Urine Color Urine Appearance Urine pH Ur Specific Marilla Urine Protein Urine Glucose (UA) Urine Ketones Urine Blood Urine Nitrate Urine Bilirubin Urine Urobilinogen Ur Leukocyte Esterase Urine RBC Urine WBC Ur Epithelial Cells Urine Bacteria 09/23/17 09/23/17 09/23/17 06:05 08:00 11:19 WBC RBC Hgb Hct MCV MCH MCHC RDW Plt Count MPV PT INR Sodium Potassium Chloride Carbon Dioxide Anion Gap BUN Creatinine Est GFR ( Amer) Est GFR (Non-Af Amer) POC Glucose (mg/dL) 205 H 216 H Random Glucose Calcium Phosphorus Magnesium Total Bilirubin AST ALT Alkaline Phosphatase Total Protein Albumin Globulin Albumin/Globulin Ratio Urine Color Yellow Urine Appearance Clear Urine pH 6.5 Ur Specific Marilla 1.015 Urine Protein Negative Urine Glucose (UA) Negative Urine Ketones Negative Urine Blood Trace-intact H Urine Nitrate Negative Urine Bilirubin Negative Urine Urobilinogen 0.2 Ur Leukocyte Esterase Negative Urine RBC 1 - 3 Urine WBC Negative Ur Epithelial Cells 1 - 3 Urine Bacteria Few Assessment & Plan (1) Right arm numbness Assessment and Plan: This could be due to recurrence of the previous stroke symptoms, or may be a new lacunar infarct. I recommend the followin. MRI of the brain and MRA of the head/neck without contrast 2. Echocardiogram with bubble study 3. Continue Aspirin 81 mg & Plavix 75 mg daily for stroke prevention for 21 days , then stop Aspirin 81 and continue Plavix 75 mg monotherapy indefinitely. 4. Continue pravastatin 20 mg daily to lower LDL< 70 5. PT/OT eval 6. DVT Px. Thank you for this consultation. Status: Acute Priority: High
--- NOTE | 2017-09-23 19:43 | MRI ---
EXAM: MR Head Without Intravenous Contrast EXAM DATE/TIME: 09/23/2017 11:39 AM CLINICAL HISTORY: The patient age is 62 years old and is female; Signs and symptoms; Other: CVA; Additional info: Mri/mra rule out stroke Facility exam id and description: Mri br s brain without contrast TECHNIQUE: Magnetic resonance images of the head/brain without intravenous contrast in multiple planes. COMPARISON: MR - BRAIN WITHOUT CONTRAST 2016-08-17 12:54 FINDINGS: Brain: There is a small focus of increased signal intensity within the left thalamus, consistent with a subacute lacunar infarct. This is hypointense on the ADC trace sequence. An additional chronic lacunar infarct is visualized within the left thalamus. No additional foci of restricted diffusion are visualized to suggest an acute infarct. Small T2 hyperintense chronic lacunar infarcts are also visualized within the right thalamus and left basal ganglia. There are periventricular foci of high FLAIR signal intensity within the cerebral white matter. There is no mass effect or restricted diffusion associated with these foci. In a patient this age, this likely represents chronic small vessel ischemic disease. There is mild prominence of the ventricles and sulci, compatible with atrophy. No magnetic susceptibility intracerebral hemosiderin is visualized. Ventricles: See above. Bones/joints: Hypertrophic changes surround the dens process within the upper cervical spine. Sinuses: There is mild polypoid mucosal thickening of the left maxillary sinus. Minimal mucosal thickening is visualized of a right posterior ethmoid air cell. No acute sinusitis. Mastoid air cells: No mastoid effusion. Orbits: Bilateral orbital lens implants are visualized. IMPRESSION: 1. There is a small focus of increased signal intensity within the left thalamus, consistent with a subacute lacunar infarct. An additional chronic lacunar infarct is visualized within the left thalamus. 2. Small chronic lacunar infarcts are also visualized within the right thalamus and left basal ganglia. 3. There are periventricular foci of high FLAIR signal intensity within the cerebral white matter. In a patient this age, this likely represents chronic small vessel ischemic disease. 4. Mild atrophy. 5. Paranasal sinus disease is noted above.
--- NOTE | 2017-09-23 19:59 | MRI ---
EXAM: MR Angiography Head Without Intravenous Contrast EXAM DATE/TIME: 09/23/2017 12:58 PM CLINICAL HISTORY: The patient age is 62 years old and is female; Signs and symptoms; Other: CVA; Additional info: R/O CVA Facility exam id and description: Mri mra heads mra head without contrast TECHNIQUE: Magnetic resonance angiography images of the head without intravenous contrast. COMPARISON: CTA HEAD NECK BUNDLE 09/22/2017 8:57:55 PM FINDINGS: Right internal carotid artery: No acute findings. Intracranial segment is patent with no significant stenosis. No aneurysm. Right anterior cerebral artery: The A2 segments of the bilateral intracerebral arteries are discontinuous, likely due to motion artifact. Otherwise, there is no occlusion or significant stenosis. No aneurysm. Right middle cerebral artery: The M2 segment of the right middle cerebral artery is discontinuous, likely due to motion artifact. There is no significant stenosis of the right M1 segment. The previously visualized stenosis of the right M2 segment is not visualized on the current MRA. No aneurysm. Right posterior cerebral artery: No occlusion or significant stenosis. No aneurysm. Right vertebral artery: No occlusion or significant stenosis. Left internal carotid artery: No acute findings. Intracranial segment is patent with no significant stenosis. No aneurysm. Left anterior cerebral artery: See above. Left middle cerebral artery: No occlusion or significant stenosis. No aneurysm. Left posterior cerebral artery: There is persistence of the origin of the left posterior cerebral artery. The left posterior cerebral artery is discontinuous, likely due to motion artifact. Otherwise, there is no occlusion or significant stenosis. No aneurysm. Left vertebral artery: No occlusion or significant stenosis. Basilar artery: There is mild stenosis of the proximal basilar artery. The degree of stenosis is approximately 30%. This is better visualized on the MRA when correlated with the recent CTA. No aneurysm. IMPRESSION: 1. There is mild stenosis of the proximal basilar artery. The degree of stenosis is approximately 30%. 2. There is no significant stenosis or occlusion of the intracranial internal carotid arteries bilaterally. 3. Motion artifact limits this study, as detailed above.
--- NOTE | 2017-09-23 20:07 | MRI ---
EXAM: MR Angiography Neck Without Intravenous Contrast EXAM DATE/TIME: 09/23/2017 12:58 PM CLINICAL HISTORY: The patient age is 62 years old and is female; Signs and symptoms; Other: CVA; Additional info: R/O CVA Facility exam id and description: Mri mra necks mra neck without contrast TECHNIQUE: Magnetic resonance angiography images of the neck without intravenous contrast. COMPARISON: CTA HEAD NECK BUNDLE 2017-09-22 20:57 FINDINGS: Right common carotid artery: Artifact limits evaluation of the proximal right common carotid artery. The remaining right common carotid artery is patent, without significant stenosis or occlusion. Right internal carotid artery: There is mild stenosis of the proximal right internal carotid artery. The degree of stenosis is approximately 30%. No occlusion. Right external carotid artery: No occlusion. Right vertebral artery: Artifact limits evaluation of the proximal distal aspects of the vertebral arteries. The remaining vertebral arteries are patent. Left common carotid artery: No significant stenosis or occlusion, as visualized. The proximal common carotid artery extends out of the [id number] of the study. Left internal carotid artery: Stenosis of the proximal left internal carotid artery was visualized on the prior CTA, but not definitive on the current MRA. Artifact limits evaluation of the proximal left internal carotid artery. Left external carotid artery: No occlusion. Left vertebral artery: See above. CAROTID STENOSIS REFERENCE USING NASCET CRITERIA: % ICA stenosis = (1 - narrowest ICA diameter/diameter of distal cervical ICA) x 100. Mild - <50% stenosis. Moderate - 50-69% stenosis. Severe - 70-94% stenosis. Near occlusion - 95-99% stenosis. Occluded - 100% stenosis. IMPRESSION: 1. There is mild stenosis of the proximal right internal carotid artery. The degree of stenosis is approximately 30%. 2. Additional findings described above.
[2017-09-24] MEDS: Insulin Lispro (humaLOG) MEDIUM Coverage SC SCH (01:05)
[2017-09-24 01:59] VITALS: RESP 18
[2017-09-24] MEDS: Pantoprazole 40 mg EC Tab PO SCH (06:01)
[2017-09-24 06:18] LABS: HEMOGLOBIN 10.5 g/dL (12.0-16.0); MEAN CELL VOLUME 79.9 fl (80.0-105.0); MEAN CORPUSCULAR HEMOGLOBIN 26.1 pg (25.0-35.0); MEAN CORPUSCULAR HGB CONC 32.7 g/dl (31.0-37.0); MEAN PLATELET VOLUME 10.1 fl (7.0-11.0); RBC 4.02 10^6/uL (3.5-6.1); RED CELL DISTRIBUTION WIDTH 14.8 % (11.5-14.5); WHITE BLOOD COUNT 5.5 10^3/ul (4.5-11.0)
[2017-09-24 06:39] LABS: INR 1.19 (0.93-1.08); PROTHROMBIN TIME 13.7 SECONDS (9.4-12.5)
[2017-09-24 06:44] VITALS: O2SAT 95
[2017-09-24 06:56] LABS: ALBUMIN 3.4 g/dL (3.0-4.8); ALT/SGPT 40 U/L (7-56); AST/SGOT 33 U/L (14-36); BLOOD UREA NITROGEN 14 mg/dL (7-21); CALCIUM 9.1 mg/dL (8.4-10.5); GFR AFRICAN-AMERICAN > 60; GFR NON-AFRICAN AMERICAN > 60
[2017-09-24] MEDS ORDERED: Insulin Lispro (humaLOG) MEDIUM Coverage SC SCH (07:30)
[2017-09-24] MEDS: Multivitamin With Minerals Tab PO SCH (08:22)
[2017-09-24 11:53] VITALS: BP 155/96; PULSE 68; TEMP 98
--- NOTE | 2017-09-24 12:42 | CP.PCM.PN ---
Subjective - Date & Time of Evaluation Date of Evaluation: 09/24/17 Time of Evaluation: 12:36 - Subjective Subjective: Ms. Abbott was seen and examined at the bedside. She is alert, oriented, She denies any headache, dizziness, lightheadeness, nausea, or vomiting. She is able to follow simple commands. She further claims of able to ambulate around the nursing unit. MRI of the brain without contrast showed small focus of increased signal intensity within the left thalamus consistent with a subacute lacunar infarct with an additional chronic lacunar infarct seen in the left thalamus, right thalamus, left basal ganglia.MRA of the neck showed mild stenosis of the proximal right ICA the degree is about 30%. There was no untoward events overnight. Objective - Vital Signs/Intake and Output Vital Signs (last 24 hours): Temp Pulse Resp BP Pulse Ox 98 F 68 18 155/96 H 95 09/24/17 11:52 09/24/17 11:52 09/24/17 11:52 09/24/17 11:52 09/24/17 06:00 Intake and Output: 09/24/17 09/24/17 06:59 18:59 Intake Total 240 Balance 240 - Medications Medications: Current Medications Aspirin (Aspirin Chewable) [address] [facility] Last Admin: 09/24/17 09:09 Dose: 81 mg Clopidogrel Bisulfate (Plavix) [address] [facility] Last Admin: 09/24/17 09:10 Dose: 75 mg Gabapentin (Neurontin) [address] [facility] PRN Reason: Protocol Last Admin: 09/24/17 09:10 Dose: 400 mg Heparin Sodium (Porcine) (Heparin) 5,000 units SC Q12 MANDA PRN Reason: Protocol Last Admin: 09/24/17 09:10 Dose: 5,000 units Insulin Human Lispro (Humalog Med) [address] [facility] PRN Reason: Protocol Last Admin: 09/24/17 08:23 Dose: 3 units Losartan Potassium (Cozaar) [address] [facility] Last Admin: 09/24/17 09:10 Dose: 50 mg Multivitamins/Minerals (Therapeutic-M Tab) [address] [facility] Last Admin: 09/24/17 08:22 Dose: 1 tab Pantoprazole Sodium (Protonix Ec Tab) [address] [facility] Last Admin: 09/24/17 06:01 Dose: 40 mg - Labs Labs: 03/14/18 06:00 09/24/17 06:00 PT 13.7 SECONDS (9.4-12.5) H 09/24/17 06:00 INR 1.19 (0.93-1.08) H 09/24/17 06:00 APTT 28.1 Seconds (25.1-36.5) 09/22/17 19:10 - Constitutional Appears: No Acute Distress - Head Exam Head Exam: NORMAL INSPECTION - Neurological Exam Neurological Exam: Alert, Awake, Oriented x3 Neuro motor strength exam: Left Upper Extremity: 5, Right Upper Extremity: 4, Left Lower Extremity: 5, Right Lower Extremity: 4 Additional comments: mild numbness of the right hand, but no extinction. Assessment and Plan (1) Right arm numbness Assessment & Plan: Case discussed with DR. Leon, continue all current medical, physical, occupational therapies. If echocardiogram is not possible today, it can be done as an outpatient , but within the couple days upon discharge. Patient request to follow up with Dr. Baker. Continue Aspirin 81 mg & Plavix 75 mg daily for stroke prevention for 21 days, then stop Aspirin 81 and continue Plavix 75 mg monotherapy indefinitely. Status: Acute
--- NOTE | 2017-09-24 14:01 | CP.PCM.DIS ---
Provider - Provider Date of Admission: 09/22/17 21:41 Attending physician: Rashid Hernandez MD Primary care physician: Deisi Grover MD Consults: DR. Leon Neurologist Time Spent in preparation of Discharge (in minutes): 55 Hospital Course - Lab Results Lab Results: Most Recent Lab Values WBC 5.5 10^3/ul (4.5-11.0) 09/24/17 06:00 RBC 4.02 10^6/uL (3.5-6.1) 09/24/17 06:00 Hgb 10.5 g/dL (12.0-16.0) L 09/24/17 06:00 Hct 32.1 % (36.0-48.0) L 09/24/17 06:00 MCV 79.9 fl (80.0-105.0) L 09/24/17 06:00 MCH 26.1 pg (25.0-35.0) 09/24/17 06:00 MCHC 32.7 g/dl (31.0-37.0) 09/24/17 06:00 RDW 14.8 % (11.5-14.5) H 09/24/17 06:00 Plt Count 205 10^3/uL (120.0-450.0) 09/24/17 06:00 MPV 10.1 fl (7.0-11.0) 09/24/17 06:00 Gran % 59.2 % (50.0-68.0) 09/22/17 19:10 Lymph % (Auto) 33.2 % (22.0-35.0) 09/22/17 19:10 [place] % (Auto) 4.8 % (1.0-6.0) 09/22/17 19:10 Eos % (Auto) 2.5 % (1.5-5.0) 09/22/17 19:10 Baso % (Auto) 0.3 % (0.0-3.0) 09/22/17 19:10 Gran # 4.71 (1.4-6.5) 09/22/17 19:10 Lymph # (Auto) 2.6 (1.2-3.4) 09/22/17 19:10 [place] # (Auto) 0.4 (0.1-0.6) 09/22/17 19:10 Eos # (Auto) 0.2 (0.0-0.7) 09/22/17 19:10 Baso # (Auto) 0.02 K/mm3 (0.0-2.0) 09/22/17 19:10 PT 13.7 SECONDS (9.4-12.5) H 09/24/17 06:00 INR 1.19 (0.93-1.08) H 09/24/17 06:00 APTT 28.1 Seconds (25.1-36.5) 09/22/17 19:10 Sodium 139 mmol/L (132-148) 09/24/17 06:00 Potassium 3.7 mmol/L (3.6-5.0) 09/24/17 06:00 Chloride 106 mmol/L (98-107) 09/24/17 06:00 Carbon Dioxide 27 mmol/L (21-33) 09/24/17 06:00 Anion Gap 10 (10-20) 09/24/17 06:00 BUN 14 mg/dL (7-21) 09/24/17 06:00 Creatinine 0.5 mg/dl (0.7-1.2) L 09/24/17 06:00 Est GFR ( Amer) > 60 09/24/17 06:00 Est GFR (Non-Af Amer) > 60 09/24/17 06:00 POC Glucose (mg/dL) 171 mg/dL (65-110) H 09/24/17 05:34 Random Glucose 187 mg/dL (70-110) H 09/24/17 06:00 Hemoglobin A1c 9.7 % (4.2-6.5) H D 09/22/17 19:10 Calcium 9.1 mg/dL (8.4-10.5) 09/24/17 06:00 Phosphorus 3.8 mg/dL (2.5-4.5) 09/23/17 06:00 Magnesium 1.4 mg/dL (1.7-2.2) L 09/23/17 06:00 Total Bilirubin 0.7 mg/dL (0.2-1.3) 09/24/17 06:00 AST 33 U/L (14-36) 09/24/17 06:00 ALT 40 U/L (7-56) 09/24/17 06:00 Alkaline Phosphatase 52 U/L (38-126) 09/24/17 06:00 Troponin I < 0.01 ng/mL 09/22/17 19:10 NT-Pro-B Natriuret Pep 27.3 pg/mL (0-450) 09/22/17 19:10 Total Protein 6.9 g/dL (5.8-8.3) 09/24/17 06:00 Albumin 3.4 g/dL (3.0-4.8) 09/24/17 06:00 Globulin 3.4 gm/dL 09/24/17 06:00 Albumin/Globulin Ratio 1.0 (1.1-1.8) L 09/24/17 06:00 Triglycerides 235 mg/dL (35-160) H 09/22/17 19:10 Cholesterol 185 mg/dL (130-200) 09/22/17 19:10 LDL Cholesterol Direct 95 mg/dL (0-129) 09/22/17 19:10 HDL Cholesterol 47 mg/dL (29-60) 09/22/17 19:10 Urine Color Yellow (YELLOW) 09/23/17 08:00 Urine Appearance Clear (CLEAR) 09/23/17 08:00 Urine pH 6.5 (4.7-8.0) 09/23/17 08:00 Ur Specific [facility] 1.015 (1.005-1.035) 09/23/17 08:00 Urine Protein Negative mg/dL (<30 mg/dL) 09/23/17 08:00 Urine Glucose (UA) Negative mg/dL (NEGATIVE) 09/23/17 08:00 Urine Ketones Negative mg/dL (NEGATIVE) 09/23/17 08:00 Urine Blood Trace-intact (NEGATIVE) H 09/23/17 08:00 Urine Nitrate Negative (NEGATIVE) 09/23/17 08:00 Urine Bilirubin Negative (NEGATIVE) 09/23/17 08:00 Urine Urobilinogen 0.2 E.U./dL (<1 E.U./dL) 09/23/17 08:00 Ur Leukocyte Esterase Negative Yen/uL (NEGATIVE) 09/23/17 08:00 Urine RBC 1 - 3 /hpf (0-2) 09/23/17 08:00 Urine WBC Negative /hpf (0-6) 09/23/17 08:00 Ur Epithelial Cells 1 - 3 /hpf (0-5) 09/23/17 08:00 Urine Bacteria Few (NEG) 09/23/17 08:00 Blood Type A POSITIVE 09/22/17 19:10 Antibody Screen Negative 09/22/17 19:10 BBK History Checked Patient has bt 09/22/17 19:10 - Hospital Course Hospital Course: 62 year old female with a past medical history of hypertension, DM II, dyslipidemia, and CVA who came in with right sided sensory changes and was found to have an elevated blood pressure and MRI findings consistent with subacute left thalamic infarct and old bilateral thalamic infarcts. Neurology recommended dual antiplatelet therapy for 21 days and Plavix indefinitely. Patient was discharged with the below written prescriptions and instructions. - Date & Time of H&P Date of H&P: 09/24/17 Time of H&P: 17:00 Discharge Exam - Head Exam Head Exam: NORMAL INSPECTION, NORMOCEPHALIC - Eye Exam Eye Exam: EOMI, Normal appearance - ENT Exam ENT Exam: Mucous Membranes Moist, Normal Oropharynx - Neck Exam Neck exam: Normal Inspection - Respiratory Exam Respiratory Exam: Clear to PA & Lateral, NORMAL BREATHING PATTERN - Cardiovascular Exam Cardiovascular Exam: RRR, +S1, +S2 - GI/Abdominal Exam GI & Abdominal Exam: Guarding, Normal Bowel Sounds - Extremities Exam Extremities exam: normal inspection - Neurological Exam Neurological exam: Alert, Normal Gait, Oriented x3 - Psychiatric Exam Psychiatric exam: Normal Affect, Normal Mood - Skin Skin Exam: Dry, Intact, Normal Color, Warm Discharge Plan - Discharge Medications Prescriptions: Aspirin [Aspirin Chewable] 81 mg PO DAILY #21 chew Clopidogrel [Plavix] 75 mg PO DAILY #30 tab Pravastatin Sodium [Pravachol] 40 mg PO DAILY #30 tablet - Follow Up Plan Condition: FAIR Disposition: HOME/ ROUTINE Instructions: Stroke, Stroke (DC) Additional Instructions: 1. Follow up with Dr. Grover, primary care doctor, within 1 week of discharge. 2. Continue Aspirin 81 mg & Plavix 75 mg daily for stroke prevention for 21 days , then stop Aspirin 81 and continue Plavix 75 mg monotherapy indefinitely. 3. Continue pravastatin 20 mg daily to lower LDL to less than 70. 4. Patient to get Echocardiogram with bubble-study within the next seven days. 5. Patient to take all medications as prescribed. Referrals: Deisi Grover MD [Primary Care Provider] -
== END 2017-09-24 15:54 | disposition home or self-care (01) | DRG 14 ==
LOC: ED 18:36 → ERH 21:41 → 2RNO 09-23 00:18
PROVIDERS: ADMIT Hospitalist; ATTEND Internal Medicine
DX: I63.9 Cerebral infarction, unspecified (principal); E11.40 Type 2 diabetes mellitus with diabetic neuropathy, unspecified; R20.0 Anesthesia of skin; I65.23 Occlusion and stenosis of bilateral carotid arteries; E78.00 Pure hypercholesterolemia, unspecified; I25.10 Atherosclerotic heart disease of native coronary artery without angina pectoris; R29.701 NIHSS score 1; I10 Essential (primary) hypertension; K21.9 Gastro-esophageal reflux disease without esophagitis; M19.90 Unspecified osteoarthritis, unspecified site; F32.9 Major depressive disorder, single episode, unspecified; E66.9 Obesity, unspecified; Z90.49 Acquired absence of other specified parts of digestive tract; Z86.19 Personal history of other infectious and parasitic diseases; Z86.73 Personal history of transient ischemic attack (TIA), and cerebral infarction without residual deficits; Z98.84 Bariatric surgery status; Z90.710 Acquired absence of both cervix and uterus

== ENCOUNTER 2017-09-24 22:49 | Observation (INO) | payer MEDICAID ==
--- NOTE | 2017-09-24 23:55 | ED PDOC ---
Arrival/HPI - General Historian: Patient - General Chief Complaint: Weakness/Neurological Deficit Time Seen by Provider: 09/24/17 23:10 - History of Present Illness Narrative History of Present Illness (Text): 09/24/17 23:56 Patient is a 62F with a PMH of HTN and a recent admission for CVA comes in with onset of numbness on in the R. shoulder and R. hip that started at 6pm and has been constant since its onset. At that time the patient checked her blood pressure and SBP was over 200. She called her PMD (Dr. German) and told her to come to the ED. Here her BP is lower at 140/70 however she is still complaining of the numbness. There is no weakness. No blurry vision or syncope. No chest pain or SOB. (Rocky Vargas) Past Medical History - Infectious Disease Hx of Infectious Diseases: None - Tetanus Immunization Tetanus Immunization: Unknown - Cardiac Hx Hypertension: Yes Hx Pacemaker: No - Pulmonary Hx Respiratory Disorders: No - Neurological Hx Paralysis: No Hx Transient Ischemic Attacks (TIA): Yes - HEENT Hx Cataracts: Yes (bilateral surgery) Hx Deafness: Yes (hearing aids) - Renal Hx Renal Disorder: No - Endocrine/Metabolic Hx Endocrine Disorders: Yes Hx Diabetes Mellitus Type 2: Yes - Hematological/Oncological Hx Blood Transfusions: Yes (AGE 32) Hx Blood Transfusion Reaction: No Hx Hepatitis C: Yes - Integumentary Hx Dermatological Disorder: No - Musculoskeletal/Rheumatological Hx Musculoskeletal Disorders: Yes - Gastrointestinal Hx Gastrointestinal Disorders: Yes Hx Gastroesophageal Reflux: Yes (occasionally with spicy foods) - Genitourinary/Gynecological Hx Genitourinary Disorders: No - Psychiatric Hx Depression: Yes Hx Emotional Abuse: No Hx Physical Abuse: No Hx Substance Use: No - Surgical History Hx Cardiac Catheterization: Yes Hx Cholecystectomy: Yes Hx Gastric Bypass Surgery: Yes Hx Hysterectomy: Yes Other/Comment: hernia surgery; surgery of her nose - Anesthesia Hx Anesthesia Reactions: No Hx Malignant Hyperthermia: No - Suicidal Assessment Feels Threatened In Home Enviroment: No Family/Social History Family/Social History: No Known Family HX Smoking Status: Never Smoked Hx Alcohol Use: No Hx Substance Use: No Hx Substance Use Treatment: No Allergies/Home Meds Allergies/Adverse Reactions: Allergies Penicillins Allergy (Verified 08/24/17 01:49) ANAPHYLAXIS Home Medications: Home Meds Medication Instructions Recorded Confirmed Ferrous Sulfate [Feosol] 325 mg PO BID 08/13/16 08/24/17 Glimepiride [Amaryl] 4 mg PO DAILY 08/13/16 08/24/17 Omeprazole 40 mg PO DAILY 08/13/16 08/24/17 Insulin Glargine, Recombina 14 unit SC ACD 09/18/16 08/24/17 [Lantus] Insulin Glargine, Recombina 20 unit SC ACB 09/18/16 08/24/17 [Lantus] Multivitamin [Daily Divina] 1 tab PO DAILY 09/18/16 08/24/17 Pioglitazone [Actos] 15 mg PO DAILY 09/18/16 08/24/17 Gabapentin [Neurontin] 400 mg PO BID 09/26/16 08/24/17 metFORMIN [glucOPHAGE] 500 mg PO BID 09/26/16 08/24/17 Cetirizine HCl [All Day Allergy 10 mg PO BID 11/10/16 08/24/17 Relief] Ketotifen Fumarate 1 drop BOTHEYES BID 11/10/16 08/24/17 Propylene Glycol/Peg 400/Pf 1 drop BOTHEYES BID 11/10/16 08/24/17 [Systane 0.3-0.4% Eye Drops] Review of Systems - Review of Systems Constitutional: Normal Eyes: Normal. absent: Vision Changes ENT: Normal Respiratory: Normal Cardiovascular: Normal. absent: Chest Pain Gastrointestinal: Normal Genitourinary Female: Normal Musculoskeletal: Normal Skin: Normal Neurological: absent: Headache, Dizziness, Focal Weakness, Speech Changes, Facial Droop, Disequilibrium, Seizure Endocrine: Normal Hemo/Lymphatic: Normal Psychiatric: Normal Physical Exam Temperature: Afebrile Blood Pressure: Hypertensive Pulse: Regular Respiratory Rate: Normal Appearance: Positive for: Well-Appearing, Non-Toxic, Comfortable Pain Distress: None Mental Status: Positive for: Alert and Oriented X 3. No: Confused, Agitated, Lethargic, Comatose - Systems Exam Head: Present: Atraumatic, Normocephalic. No: Tenderness, Contusion, Swelling, Ecchymosis, Abrasion, Laceration Pupils: Present: PERRL. No: Sluggish, Non-Reactive, Pinpoint Extroacular Muscles: Present: EOMI Conjunctiva: Present: Normal Mouth: Present: Moist Mucous Membranes Pharnyx: Present: Normal Neck: Present: Normal Range of Motion Respiratory/Chest: Present: Clear to Auscultation, Good Air Exchange. No: Respiratory Distress, Accessory Muscle Use, Wheezes Cardiovascular: Present: Regular Rate and Rhythm, Normal S1, S2. No: Murmurs Abdomen: Present: Normal Bowel Sounds. No: Tenderness, Distention Upper Extremity: Present: Normal Inspection, Normal ROM Lower Extremity: Present: Normal Inspection. No: Edema Neurological: Present: GCS=15, CN II-XII Intact, Speech Normal, Motor Func Grossly Intact, Normal Sensory Function, Normal Cerebellar Funct, Norm Deep Tendon Reflexes, Normal 2Pt Descrimination Skin: Present: Warm, Dry, Normal Color. No: Rashes Psychiatric: Present: Alert, Oriented x 3 Vital Signs Temp Pulse Resp BP Pulse Ox 09/24/17 23:15 97.6 F 83 16 144/71 98 Medical Decision Making Reassessment Condition: Unchanged ED Course and Treatment: Patient Seen With Resident: In agreement with resident note which contains more details about the patient. Patient was seen and evaluated with resident. Came up with plan and treatment together. (Alessio Tee) - RAD Interpretation Radiology Orders: 09/24/17 23:37 HEAD W/O CONTRAST [CT] Stat 09/25/17 00:08 CTA HEAD & NECK BUNDLE [CT] Stat - PA / [employer] REPRESENTATIVE AND ASSESSOR / Resident Statement / has reviewed & agrees with the documentation as recorded. MD/ has examined the patient and agrees with the treatment plan. Disposition/Present on Arrival - Present on Arrival Any Indicators Present on Arrival: No History of DVT/PE: No History of Uncontrolled Diabetes: Yes Urinary Catheter: No History of Decub. Ulcer: No History Surgical Site Infection Following: None - Disposition Have Diagnosis and Disposition been Completed?: Yes Disposition Time: 00:17 Patient Plan: Telemetry - Disposition Diagnosis: Numbness Disposition: HOSPITALIZED Patient Problems: Current Active Problems Problem Status Onset Numbness Acute Condition: GUARDED Referrals: Deisi Grover MD [Primary Care Provider] - Follow up with primary Forms: [email or web address] (Hebrew)
[2017-09-25 01:06] LABS: BASO # 0.01 K/mm3 (0.0-2.0); BASO % 0.2 % (0.0-3.0); EOS # 0.1 (0.0-0.7); GRAN # 3.12 (1.4-6.5); GRAN % 51.5 % (50.0-68.0); HEMOGLOBIN 10.7 g/dL (12.0-16.0); LYMPH # 2.3 (1.2-3.4); LYMPH % 38.5 % (22.0-35.0); MEAN CELL VOLUME 79.2 fl (80.0-105.0); MEAN CORPUSCULAR HEMOGLOBIN 26.2 pg (25.0-35.0); MEAN PLATELET VOLUME 9.8 fl (7.0-11.0); MONO # 0.5 (0.1-0.6); MONO % 7.8 % (1.0-6.0); RBC 4.09 10^6/uL (3.5-6.1); RED CELL DISTRIBUTION WIDTH 14.7 % (11.5-14.5); WHITE BLOOD COUNT 6.1 10^3/ul (4.5-11.0)
[2017-09-25 01:18] LABS: INR 1.14 (0.93-1.08); PARTIAL THROMBOPLASTIN TIME 29.8 Seconds (25.1-36.5)
[2017-09-25 01:20] LABS: ALB/GLOB RATIO 1.1 (1.1-1.8); ALBUMIN 3.8 g/dL (3.0-4.8); ALT/SGPT 41 U/L (7-56); AST/SGOT 27 U/L (14-36); BLOOD UREA NITROGEN 16 mg/dL (7-21); CALCIUM 9.3 mg/dL (8.4-10.5); GFR AFRICAN-AMERICAN > 60; GFR NON-AFRICAN AMERICAN > 60
[2017-09-25 02:28] VITALS: TEMP 97.9; O2SAT 99
--- NOTE | 2017-09-25 02:59 | CT ---
EXAM: CT Head Without Intravenous Contrast CLINICAL HISTORY: 62 years old, female; Signs and symptoms; Numbness / parasthesia TECHNIQUE: Axial computed tomography images of the head/brain without intravenous contrast. All CT scans at this facility use one or more dose reduction techniques, viz.: automated exposure control; ma/kV adjustment per patient size (including targeted exams where dose is matched to indication; i.e. head); or iterative reconstruction technique. Coronal and sagittal reformatted images were created and reviewed. COMPARISON: CTA head 09/22/2017 FINDINGS: Brain: There is mild diffuse cerebral atrophy present, consistent with this patient's age. No hemorrhage. No significant white matter disease. Ventricles: The ventricular system demonstrates mild diffuse compensatory enlargement. Bones/joints: Unremarkable. No acute fracture. Soft tissues: Unremarkable. Sinuses: Unremarkable as visualized. No acute sinusitis. Mastoid air cells: Unremarkable as visualized. No mastoid effusion. IMPRESSION: No acute findings.
--- NOTE | 2017-09-25 03:52 | CP.PCM.HP ---
<Koko Branch - Last Filed: 09/25/17 03:46> History of Present Illness - History of Present Illness History of Present Illness: Koko Branch PGY1 H&P Note for Hospitalist Service cc: right shoulder and hip pain x1 day Ms. Abbott is a 62 year old female with a PMH of TIA, uncontrolled diabetes mellitus, HTN, HLD, GERD, arthritis, obesity, depression and hepatitis C ( treated) who presented to ED after being discharged earlier today due to pain in her R shoulder and R hip. She was worked up for a stroke and discharged today with instructions to continue physical therapy and have Echo done. The patient states that she went home, showered and developed R shoulder pain (non- radiating, with no associated weakness or numbness/tingling). The pain is also present in her R hip.she denies any falls. she states that she has went to physical therapy a handful of times and was planning on going tomorrow, but now can't. She called Dr. Grover who recommended that she come to ED. she denies any weakness, motor or sensory changes, recent illness, chest pain, shortness of breath, n/v, changes in vision or other complaints. 12-pt ROS was reviewed and is otherwise unremarkable. From prior visit: MRI of the brain without contrast showed small focus of increased signal intensity within the left thalamus consistent with a subacute lacunar infarct with an additional chronic lacunar infarct seen in the left thalamus, right thalamus, left basal ganglia. MRA of the neck showed mild stenosis of the proximal right ICA the degree is about 30%.MRA Head showed stenosis of basilar artery (about 30%). Past chart review shows: diagnostic cath in 09/2016 showed non-obstructive CAD w / preserved EF 65%. MRI of brain 08/2016 from time of TIA shows acute lacunar infarct. Carotid US from that time shows b/l 40-59% ICA stenoses. PMD: Dr. Grover PMH: as above PSH: gastric bypass, hernia repair, cholecystectomy Meds: as per MAR allergy: PCN SHx: denies tobacco, ETOH or illicit drug use Present on Admission - Present on Admission Any Indicators Present on Admission: No Review of Systems - Review of Systems All systems: reviewed and no additional remarkable complaints except (as per HPI ) Past Patient History - Infectious Disease Hx of Infectious Diseases: None - Tetanus Immunizations Tetanus Immunization: Unknown - Past Social History Smoking Status: Never Smoked Alcohol: None Drugs: Denies Home Situation {Lives}: With Family (, daughter and son) - CARDIAC Hx Hypercholesterolemia: Yes Hx Hypertension: Yes Hx Pacemaker: No - PULMONARY Hx Respiratory Disorders: No - NEUROLOGICAL Hx Paralysis: No Hx Transient Ischemic Attacks (TIA): Yes - HEENT Hx Cataracts: Yes (bilateral surgery) Hx Deafness: Yes (hearing aids) - RENAL Hx Chronic Kidney Disease: No - ENDOCRINE/METABOLIC Hx Endocrine Disorders: Yes Hx Diabetes Mellitus Type 2: Yes - HEMATOLOGICAL/ONCOLOGICAL Hx Blood Transfusions: Yes (AGE 32) Hx Blood Transfusion Reaction: No Hx Hepatitis C: Yes - INTEGUMENTARY Hx Dermatological Problems: No - MUSCULOSKELETAL/RHEUMATOLOGICAL Hx Musculoskeletal Disorders: Yes - GASTROINTESTINAL Hx Gastrointestinal Disorders: Yes Hx Gastroesophageal Reflux: Yes (occasionally with spicy foods) - GENITOURINARY/GYNECOLOGICAL Hx Genitourinary Disorders: No - PSYCHIATRIC Hx Depression: Yes Hx Emotional Abuse: No Hx Physical Abuse: No Hx Substance Use: No - SURGICAL HISTORY Hx Cardiac Catheterization: Yes Hx Cholecystectomy: Yes Hx Gastric Bypass Surgery: Yes Hx Hysterectomy: Yes Other/Comment: hernia surgery; surgery of her nose - ANESTHESIA Hx Anesthesia Reactions: No Hx Malignant Hyperthermia: No Meds Home Medications: Home Medication List Medication Instructions Recorded Confirmed Type Losartan [Cozaar] 50 mg PO DAILY tab 09/25/17 Rx Allergies/Adverse Reactions: Allergies Allergy/AdvReac Type Severity Reaction Status Date / Time Penicillins Allergy ANAPHYLAXIS Verified 08/24/17 01:49 Physical Exam - Constitutional Appears: Well, Non-toxic, No Acute Distress - Head Exam Head Exam: ATRAUMATIC, NORMAL INSPECTION Additional comments: acanthosis nigricans noted - Eye Exam Eye Exam: EOMI, Normal appearance, PERRL - ENT Exam ENT Exam: Mucous Membranes Moist - Neck Exam Neck exam: Positive for: Normal Inspection - Respiratory Exam Respiratory Exam: Clear to Auscultation Bilateral, NORMAL BREATHING PATTERN. absent: Rales, Rhonchi, Wheezes - Cardiovascular Exam Cardiovascular Exam: RRR, +S1, +S2 - GI/Abdominal Exam GI & Abdominal Exam: Soft. absent: Distended, Tenderness Additional comments: obese - Extremities Exam Extremities exam: Positive for: full ROM, normal inspection. Negative for: joint swelling, pedal edema - Back Exam Back exam: NORMAL INSPECTION - Neurological Exam Neurological exam: Alert, CN II-XII Intact, Oriented x3 Additional comments: full ROM x4 extremities RUE pain w/ movement 2/2 arthritis shoulder pain sensation intact x4 extremities no nasolabial folding changes b/l eyebrows raise appropriately - Psychiatric Exam Psychiatric exam: Normal Affect, Normal Mood - Skin Skin Exam: Normal Color, Warm Results - Vital Signs Recent Vital Signs: Last Vital Signs Temp 97.9 F 09/25/17 01:27 Pulse 82 09/25/17 01:27 Resp 16 09/25/17 01:27 BP 133/82 09/25/17 01:27 Pulse Ox 99 09/25/17 01:27 - Labs Result Diagrams: 09/25/17 00:30 09/25/17 00:30 Labs: Laboratory Results - last 24 hr 09/25/17 09/25/17 09/25/17 00:30 00:30 00:30 WBC 6.1 RBC 4.09 Hgb 10.7 L Hct 32.4 L MCV 79.2 L MCH 26.2 MCHC 33.0 RDW 14.7 H Plt Count 209 MPV 9.8 Gran % 51.5 Lymph % (Auto) 38.5 H [place] % (Auto) 7.8 H Eos % (Auto) 2.0 Baso % (Auto) 0.2 Gran # 3.12 Lymph # (Auto) 2.3 [place] # (Auto) 0.5 Eos # (Auto) 0.1 Baso # (Auto) 0.01 PT 13.0 H INR 1.14 H APTT 29.8 Sodium 139 Potassium 3.9 Chloride 104 Carbon Dioxide 27 Anion Gap 12 BUN 16 Creatinine 0.6 L Est GFR ( Amer) > 60 Est GFR (Non-Af Amer) > 60 Random Glucose 246 H Calcium 9.3 Total Bilirubin 0.4 AST 27 ALT 41 Alkaline Phosphatase 53 Total Protein 7.2 Albumin 3.8 Globulin 3.4 Albumin/Globulin Ratio 1.1 Assessment & Plan - Assessment and Plan (Free Text) Assessment: 62 year old female with a PMH of TIA, uncontrolled diabetes mellitus, HTN, HLD, GERD, arthritis, obesity, depression and hepatitis C (treated) being admitted for continued R shoulder pain after inconclusive workup for stroke. Plan: 1. R shoulder and hip pain could be arthritic in nature vs peripheral neuropathy 2/2 DJD - no focal motorsensory deficits - CT Head was unremarkable - CTA Head/Neck done and showed 1. There is atherosclerosis of the bilateral intracranial internal carotid arteries, with less than 50% stenosis bilaterally. 2. There is a suggestion of mild stenosis of the proximal basilar artery. The degree of stenosis is approximately 25%. 3. There is mild stenosis of the proximal left vertebral artery. 4. At the left lung apex, there is a 3-4 mm nodule. A nonemergent chest CT is recommended. 5. Scattered mediastinal lymph nodes are identified, a few which are mildly enlarged. These lymph nodes are nonspecific as to etiology. Of note, Bones/joints: Spondylosis identified at multiple cervical and visualized upper thoracic levels. There is straightening of the lordotic curvature of the cervical spine. - pain could be arthritic in nature - will order shoulder and hip XR - From last admission recs, will continue ASA and Plavix daily - motrin prn pain - echo w/ bubble study ordered since was not done on last admission - Neurology consulted, recs appreciated - PT eval 2. Hx DM2 - ISS - Accuchecks ACHS ordered - HHD with carb consistent - neurontin home dose ordered 3. Hx HTN - monitor VS - currently stable - cont Losartan daily 4. Hx HLD - cont Lipitor 5. Hx GERD - protonix ordered for GI ppx 6. Hx Hep C - treated per prior notes on chart review - monitor for any changes - caution when using hepatotoxic drugs HHD w/ carb consistent PTX/SCDs for GI/DVT ppx Patient was seen, examined and discussed with attending, Dr. Vivian Branch PGY1 <Daniel Wooten N - Last Filed: 09/26/17 00:07> Results - Vital Signs Recent Vital Signs: Last Vital Signs Temp 97.9 F 09/25/17 01:27 Pulse 96 H 09/25/17 09:19 Resp 18 09/25/17 04:34 BP 170/80 H 09/25/17 09:19 Pulse Ox 99 09/25/17 03:45 - Labs Result Diagrams: 09/25/17 08:45 09/25/17 08:45 Labs: Laboratory Results - last 24 hr 09/25/17 09/25/17 09/25/17 08:06 08:45 08:45 WBC 6.5 RBC 4.35 Hgb 11.4 L Hct 34.2 L MCV 78.6 L MCH 26.2 MCHC 33.3 RDW 14.5 Plt Count 230 MPV 9.8 Sodium 139 Potassium 4.0 Chloride 104 Carbon Dioxide 22 Anion Gap 17 BUN 13 Creatinine 0.6 L Est GFR ( Amer) > 60 Est GFR (Non-Af Amer) > 60 POC Glucose (mg/dL) 247 H Random Glucose 243 H Calcium 9.6 Phosphorus 3.1 Magnesium 1.6 L Total Bilirubin 0.6 AST 31 ALT 44 Alkaline Phosphatase 58 Total Protein 7.9 Albumin 4.2 Globulin 3.7 Albumin/Globulin Ratio 1.1 09/25/17 11:18 WBC RBC Hgb Hct MCV MCH MCHC RDW Plt Count MPV Sodium Potassium Chloride Carbon Dioxide Anion Gap BUN Creatinine Est GFR ( Amer) Est GFR (Non-Af Amer) POC Glucose (mg/dL) 218 H Random Glucose Calcium Phosphorus Magnesium Total Bilirubin AST ALT Alkaline Phosphatase Total Protein Albumin Globulin Albumin/Globulin Ratio
--- NOTE | 2017-09-25 03:53 | CT ---
EXAM: CT Angiography Head With Intravenous Contrast CLINICAL HISTORY: The patient age is 62 years old and is female; Signs and symptoms; Numbness; Additional info: Numbness r. Shoulder r. Hip Facility exam id and description: [facility] cta head neck bundle TECHNIQUE: Axial computed tomographic angiography images of the head with intravenous contrast using CT angiography protocol. All CT scans at this facility use one or more dose reduction techniques, viz.: automated exposure control; ma/kV adjustment per patient size (including targeted exams where dose is matched to indication; i.e. head); or iterative reconstruction technique. MIP reconstructed images were created and reviewed. Coronal and sagittal reformatted images were created and reviewed. CONTRAST: 146 mL of OMNI 350 administered intravenously. COMPARISON: CTA HEAD NECK BUNDLE 2017-09-22 20:57 FINDINGS: Right internal carotid artery: There is atherosclerosis of the bilateral intracranial internal carotid arteries, with less than 50% stenosis bilaterally. No aneurysm. Right anterior cerebral artery: No occlusion or significant stenosis. No aneurysm. Right middle cerebral artery: There is no significant stenosis of the M1 and M2 segments of the right middle cerebral artery. The previously visualized stenosis of the right M2 segment is not appreciated on the current CTA. No aneurysm. Right posterior cerebral artery: No occlusion or significant stenosis. No aneurysm. Right vertebral artery: No occlusion or significant stenosis. Left internal carotid artery: See above. Left anterior cerebral artery: No occlusion or significant stenosis. No aneurysm. Left middle cerebral artery: No occlusion or significant stenosis. No aneurysm. Left posterior cerebral artery: There is persistence of the origin of the left posterior cerebral artery, without significant stenosis or occlusion. No aneurysm. Left vertebral artery: No occlusion or significant stenosis. Basilar artery: There is a suggestion of mild stenosis of the proximal basilar artery. The degree of stenosis is approximately 25%. IMPRESSION: 1. There is atherosclerosis of the bilateral intracranial internal carotid arteries, with less than 50% stenosis bilaterally. 2. There is a suggestion of mild stenosis of the proximal basilar artery. The degree of stenosis is approximately 25%. 3. Additional CT findings described above. EXAM: CT Angiography Neck With Intravenous Contrast EXAM DATE/TIME: 09/25/2017 12:08 AM CLINICAL HISTORY: The patient age is 62 years old and is female; Signs and symptoms; Numbness; Additional info: Numbness r. Shoulder r. Hip Facility exam id and description: [facility] cta head neck bundle TECHNIQUE: Axial computed tomographic angiography images of the neck with intravenous contrast using CT angiography protocol. All CT scans at this facility use one or more dose reduction techniques, viz.: automated exposure control; ma/kV adjustment per patient size (including targeted exams where dose is matched to indication; i.e. head); or iterative reconstruction technique. MIP reconstructed images were created and reviewed. Coronal and sagittal reformatted images were created and reviewed. CONTRAST: 146 mL of OMNI 350 administered intravenously. COMPARISON: CTA HEAD NECK BUNDLE 2017-09-22 20:57 FINDINGS: VASCULATURE: Right common carotid artery: Artifact limits evaluation of the bilateral proximal common carotid arteries. There is no significant stenosis or occlusion of the distal right common carotid artery. Right internal carotid artery: Mild atherosclerotic changes are identified of the proximal right internal carotid artery, with mild stenosis. The degree of stenosis is approximately 30%. No dissection or occlusion. Right external carotid artery: No occlusion. Right vertebral artery: No occlusion or significant stenosis. Left common carotid artery: Atherosclerosis or mural thrombus is identified at the left carotid bifurcation. There is approximately 50% stenosis of the left carotid bulb, similar to the prior CTA study. Mild stenosis is also visualized of the distal left common carotid artery. Left internal carotid artery: See above. Left external carotid artery: No occlusion. Left vertebral artery: There is mild stenosis of the proximal left vertebral artery. Other vasculature: There is suboptimal evaluation of the left subclavian artery due to adjacent venous enhancement. NECK: Bones/joints: Spondylosis identified at multiple cervical and visualized upper thoracic levels. There is straightening of the lordotic curvature of the cervical spine. Lymph nodes: Scattered mediastinal lymph nodes are identified, a few which are mildly enlarged. These lymph nodes are nonspecific as to etiology. Lung apices: At the left lung apex, there is a 3-4 mm nodule. CAROTID STENOSIS REFERENCE USING NASCET CRITERIA: % ICA stenosis = (1 - narrowest ICA diameter/diameter of distal cervical ICA) x 100. Mild - <50% stenosis. Moderate - 50-69% stenosis. Severe - 70-94% stenosis. Near occlusion - 95-99% stenosis. Occluded - 100% stenosis. IMPRESSION: 1. Atherosclerosis or mural thrombus is identified at the left carotid bifurcation. There is approximately 50% stenosis of the left carotid bulb, similar to the prior CTA study. Mild stenosis is also visualized of the distal left common carotid artery. 2. Mild atherosclerotic changes are identified of the proximal right internal carotid artery, with mild stenosis. The degree of stenosis is approximately 30%, which is stable. 3. There is mild stenosis of the proximal left vertebral artery. 4. At the left lung apex, there is a 3-4 mm nodule. A nonemergent chest CT is recommended. 5. Scattered mediastinal lymph nodes are identified, a few which are mildly enlarged. These lymph nodes are nonspecific as to etiology. 6. Additional CT findings described above.
[2017-09-25 04:15] VITALS: RESP 18
[2017-09-25 05:37] VITALS: BMI 30.8
[2017-09-25] MEDS ORDERED: Pantoprazole 40 mg EC Tab PO SCH (06:00)
[2017-09-25] MEDS: Insulin Lispro (humaLOG) MEDIUM Coverage SC SCH ×2 (08:57→13:02)
[2017-09-25 09:07] LABS: HEMOGLOBIN 11.4 g/dL (12.0-16.0); MEAN CELL VOLUME 78.6 fl (80.0-105.0); MEAN CORPUSCULAR HEMOGLOBIN 26.2 pg (25.0-35.0); MEAN CORPUSCULAR HGB CONC 33.3 g/dl (31.0-37.0); MEAN PLATELET VOLUME 9.8 fl (7.0-11.0); RBC 4.35 10^6/uL (3.5-6.1); RED CELL DISTRIBUTION WIDTH 14.5 % (11.5-14.5); WHITE BLOOD COUNT 6.5 10^3/ul (4.5-11.0)
[2017-09-25 09:14] LABS: ALB/GLOB RATIO 1.1 (1.1-1.8); ALBUMIN 4.2 g/dL (3.0-4.8); ALT/SGPT 44 U/L (7-56); AST/SGOT 31 U/L (14-36); BLOOD UREA NITROGEN 13 mg/dL (7-21); CALCIUM 9.6 mg/dL (8.4-10.5); GFR AFRICAN-AMERICAN > 60; GFR NON-AFRICAN AMERICAN > 60
[2017-09-25 09:20] VITALS: BP 170/80; PULSE 96
--- NOTE | 2017-09-25 11:00 | RAD ---
PROCEDURE: Radiographs of the Right Shoulder HISTORY: R shoulder pain COMPARISON: GoNo prior. FINDINGS: BONES: Normal. No fracture. JOINTS: Normal. Glenohumeral and acromioclavicular joints preserved. No osteoarthritis. SOFT TISSUES: Normal. OTHER FINDINGS: None. IMPRESSION: Normal radiographs of the right shoulder.
--- NOTE | 2017-09-25 11:20 | CP.PCM.CON ---
History of Present Illness - History of Present Illness History of Present Illness: 62 yr old woman with a past medical history of left shoulder possible rotator cuff, followed by orthopedics surgery at [facility], who presented with left arm numbness and tingling yesterday afternoon, was sent home and then returned with increase in pain in her left shoulder associated with numbness. Patient has a history of TIA in the past, with significant cardiac history and atherosclerosis, as well as hypertension. She was quite concernced about her bp reading, which is elevated. PMH/PSH: FH/SH All: on exam: Aaox3. pupils 3mm-2mm with light. Cn 2-12 normal. Speech fluent. Can name and repeat. Motor: strength exam is normal except for left adduction which is 2/5, and accompanied with severe pain, she cannot lift her arm over her head and has a reduced carrying angle. +2 dtr ul and ll bl. Toes downgoing, no clonus. Gait is normal, she can walk tandem well, no ataxia. Sensory: no deficits. Past Patient History - Infectious Disease Hx of Infectious Diseases: None - Tetanus Immunizations Tetanus Immunization: Unknown - Past Social History Smoking Status: Never Smoked - CARDIAC Hx Cardiac Disorders: Yes Hx Hypercholesterolemia: Yes Hx Hypertension: Yes Hx Pacemaker: No - PULMONARY Hx Respiratory Disorders: No - NEUROLOGICAL Hx Neurological Disorder: Yes Hx Dizziness: Yes Hx Transient Ischemic Attacks (TIA): Yes - HEENT Hx HEENT Problems: Yes Hx Cataracts: Yes (bilateral surgery) Hx Deafness: Yes (hearing aids) - RENAL Hx Chronic Kidney Disease: No - ENDOCRINE/METABOLIC Hx Endocrine Disorders: Yes Hx Diabetes Mellitus Type 2: Yes - HEMATOLOGICAL/ONCOLOGICAL Hx Blood Disorders: Yes Hx Hepatitis C: Yes - INTEGUMENTARY Hx Dermatological Problems: No - MUSCULOSKELETAL/RHEUMATOLOGICAL Hx Musculoskeletal Disorders: Yes Hx Falls: Yes - GASTROINTESTINAL Hx Gastrointestinal Disorders: Yes Hx Gastroesophageal Reflux: Yes (occasionally with spicy foods) - GENITOURINARY/GYNECOLOGICAL Hx Genitourinary Disorders: No - PSYCHIATRIC Hx Psychophysiologic Disorder: Yes Hx Depression: Yes Hx Emotional Abuse: No Hx Physical Abuse: No Hx Substance Use: No - SURGICAL HISTORY Hx Surgeries: Yes Hx Cardiac Catheterization: Yes Hx Cholecystectomy: Yes Hx Gastric Bypass Surgery: Yes Hx Hysterectomy: Yes Other/Comment: hernia surgery; surgery of her nose - ANESTHESIA Hx Anesthesia Reactions: No Hx Malignant Hyperthermia: No Meds Allergies/Adverse Reactions: Allergies Allergy/AdvReac Type Severity Reaction Status Date / Time Penicillins Allergy ANAPHYLAXIS Verified 08/24/17 01:49 - Medications Medications: Current Medications Aspirin (Aspirin Chewable) 81 mg PO DAILY [facility] Last Admin: 09/25/17 09:18 Dose: 81 mg Atorvastatin Calcium (Lipitor) 40 mg PO DIN MANDA Clopidogrel Bisulfate (Plavix) 75 mg PO DAILY [facility] Last Admin: 09/25/17 09:18 Dose: 75 mg Gabapentin (Neurontin) 400 mg PO BID [facility] PRN Reason: Protocol Last Admin: 09/25/17 09:18 Dose: 400 mg Ibuprofen (Motrin Tab) 400 mg PO Q6H PRN PRN Reason: Pain, Mild (1-3) Insulin Human Lispro (Humalog Med) 0 units SC ACHS [facility] PRN Reason: Protocol Last Admin: 09/25/17 08:57 Dose: 3 units Losartan Potassium (Cozaar) 50 mg PO DAILY [facility] Last Admin: 09/25/17 09:19 Dose: 50 mg Ondansetron HCl (Zofran Inj) 4 mg IVP Q4H PRN PRN Reason: Nausea/Vomiting Pantoprazole Sodium (Protonix Ec Tab) 40 mg PO 0600 [facility] Last Admin: 09/25/17 05:50 Dose: 40 mg Results - Vital Signs Recent Vital Signs: Last Vital Signs Temp 97.9 F 09/25/17 01:27 Pulse 96 H 09/25/17 09:19 Resp 18 09/25/17 04:34 BP 170/80 H 09/25/17 09:19 Pulse Ox 99 09/25/17 03:45 - Labs Result Diagrams: 09/25/17 08:45 09/25/17 08:45 Labs: Laboratory Results - last 24 hr 09/25/17 09/25/17 09/25/17 08:06 08:45 08:45 WBC 6.5 RBC 4.35 Hgb 11.4 L Hct 34.2 L MCV 78.6 L MCH 26.2 MCHC 33.3 RDW 14.5 Plt Count 230 MPV 9.8 Sodium 139 Potassium 4.0 Chloride 104 Carbon Dioxide 22 Anion Gap 17 BUN 13 Creatinine 0.6 L Est GFR ( Amer) > 60 Est GFR (Non-Af Amer) > 60 POC Glucose (mg/dL) 247 H Random Glucose 243 H Calcium 9.6 Phosphorus 3.1 Magnesium 1.6 L Total Bilirubin 0.6 AST 31 ALT 44 Alkaline Phosphatase 58 Total Protein 7.9 Albumin 4.2 Globulin 3.7 Albumin/Globulin Ratio 1.1 - Imaging and Cardiology CT scan - head Status: Image reviewed by me, Report reviewed by me (normal ct head ) Assessment & Plan - Assessment and Plan (Free Text) Assessment: 62 yr old woman with what appears to be a rotator cuff tear, moderately severe in nature, s/p therapy for almost 6 months, who is here for stroke workup , but actually has a rotator cuff issue. At this point the stroke workup can be discontinued and we will pursue orthopedic management. Plan: 1. MRI shoulder,left. 2. Discontinue stroke workup. Dr. Roman
--- NOTE | 2017-09-25 11:21 | RAD ---
PROCEDURE: Radiographs of the pelvis. HISTORY: R hip pain COMPARISON: None. FINDINGS: BONES: Pelvic Bones: Unremarkable. Hips: Grossly unremarkable. JOINTS: Sacroiliac Joints: Unremarkable. Pubic Symphysis: Unremarkable. OTHER FINDINGS: None. IMPRESSION: Unremarkable radiographs of the pelvis.
--- NOTE | 2017-09-25 16:20 | CP.PCM.DIS ---
<Sara Schafer - Last Filed: 09/25/17 20:08> Provider - Provider Date of Admission: 09/25/17 03:07 Attending physician: Yenifer Wooten MD Primary care physician: Deisi Grover MD Consults: Dr. Roman Neurology Time Spent in preparation of Discharge (in minutes): 35 Diagnosis - Discharge Diagnosis (1) Shoulder impingement syndrome Status: Acute Priority: Medium Hospital Course - Lab Results Lab Results: Most Recent Lab Values WBC 6.5 10^3/ul (4.5-11.0) 09/25/17 08:45 RBC 4.35 10^6/uL (3.5-6.1) 09/25/17 08:45 Hgb 11.4 g/dL (12.0-16.0) L 09/25/17 08:45 Hct 34.2 % (36.0-48.0) L 09/25/17 08:45 MCV 78.6 fl (80.0-105.0) L 09/25/17 08:45 MCH 26.2 pg (25.0-35.0) 09/25/17 08:45 MCHC 33.3 g/dl (31.0-37.0) 09/25/17 08:45 RDW 14.5 % (11.5-14.5) 09/25/17 08:45 Plt Count 230 10^3/uL (120.0-450.0) 09/25/17 08:45 MPV 9.8 fl (7.0-11.0) 09/25/17 08:45 Gran % 51.5 % (50.0-68.0) 09/25/17 00:30 Lymph % (Auto) 38.5 % (22.0-35.0) H 09/25/17 00:30 [place] % (Auto) 7.8 % (1.0-6.0) H 09/25/17 00:30 Eos % (Auto) 2.0 % (1.5-5.0) 09/25/17 00:30 Baso % (Auto) 0.2 % (0.0-3.0) 09/25/17 00:30 Gran # 3.12 (1.4-6.5) 09/25/17 00:30 Lymph # (Auto) 2.3 (1.2-3.4) 09/25/17 00:30 [place] # (Auto) 0.5 (0.1-0.6) 09/25/17 00:30 Eos # (Auto) 0.1 (0.0-0.7) 09/25/17 00:30 Baso # (Auto) 0.01 K/mm3 (0.0-2.0) 09/25/17 00:30 PT 13.0 SECONDS (9.4-12.5) H 09/25/17 00:30 INR 1.14 (0.93-1.08) H 09/25/17 00:30 APTT 29.8 Seconds (25.1-36.5) 09/25/17 00:30 Sodium 139 mmol/L (132-148) 09/25/17 08:45 Potassium 4.0 mmol/L (3.6-5.0) 09/25/17 08:45 Chloride 104 mmol/L (98-107) 09/25/17 08:45 Carbon Dioxide 22 mmol/L (21-33) 09/25/17 08:45 Anion Gap 17 (10-20) 09/25/17 08:45 BUN 13 mg/dL (7-21) 09/25/17 08:45 Creatinine 0.6 mg/dl (0.7-1.2) L 09/25/17 08:45 Est GFR ( Amer) > 60 09/25/17 08:45 Est GFR (Non-Af Amer) > 60 09/25/17 08:45 POC Glucose (mg/dL) 218 mg/dL (65-110) H 09/25/17 11:18 Random Glucose 243 mg/dL (70-110) H 09/25/17 08:45 Calcium 9.6 mg/dL (8.4-10.5) 09/25/17 08:45 Phosphorus 3.1 mg/dL (2.5-4.5) 09/25/17 08:45 Magnesium 1.6 mg/dL (1.7-2.2) L 09/25/17 08:45 Total Bilirubin 0.6 mg/dL (0.2-1.3) 09/25/17 08:45 AST 31 U/L (14-36) 09/25/17 08:45 ALT 44 U/L (7-56) 09/25/17 08:45 Alkaline Phosphatase 58 U/L (38-126) 09/25/17 08:45 Total Protein 7.9 g/dL (5.8-8.3) 09/25/17 08:45 Albumin 4.2 g/dL (3.0-4.8) 09/25/17 08:45 Globulin 3.7 gm/dL 09/25/17 08:45 Albumin/Globulin Ratio 1.1 (1.1-1.8) 09/25/17 08:45 - Hospital Course Hospital Course: Ms. Abbott is a 62 year old female with a PMH of TIA, uncontrolled diabetes mellitus, HTN, HLD, GERD, arthritis, obesity, depression and hepatitis C ( treated) who presented to ED after being discharged earlier today due to pain in her R shoulder and R hip. She was worked up for a stroke and discharged today with instructions to continue physical therapy and have Echo done. The patient states that she went home, showered and developed R shoulder pain (non- radiating, with no associated weakness or numbness/tingling). The pain is also present in her R hip.she denies any falls. she states that she has went to physical therapy a handful of times and was planning on going tomorrow, but now can't. She called Dr. Grover who recommended that she come to ED. she denies any weakness, motor or sensory changes, recent illness, chest pain, shortness of breath, n/v, changes in vision or other complaints. 12-pt ROS was reviewed and is otherwise unremarkable. From prior visit: MRI of the brain without contrast showed small focus of increased signal intensity within the left thalamus consistent with a subacute lacunar infarct with an additional chronic lacunar infarct seen in the left thalamus, right thalamus, left basal ganglia. MRA of the neck showed mild stenosis of the proximal right ICA the degree is about 30%.MRA Head showed stenosis of basilar artery (about 30%). Past chart review shows: diagnostic cath in 09/2016 showed non-obstructive CAD w / preserved EF 65%. MRI of brain 08/2016 from time of TIA shows acute lacunar infarct. Carotid US from that time shows b/l 40-59% ICA stenoses. Neurology saw the patient and realized that her shoulder complaint were likely maintenance representative of adhesive capsulitis. X-ray of the shoulder and hip were negative for any radiographicaly identifiable abnormalities. The patient was discharged with outpatient prescription for right shoulder physical therapy and the below written instructions. Also, echo with bubble was performed which has not been interpreted. - Date & Time of H&P Date of H&P: 09/25/17 Time of H&P: 16:00 Discharge Exam - Head Exam Head Exam: ATRAUMATIC, NORMAL INSPECTION - Eye Exam Eye Exam: EOMI, Normal appearance - ENT Exam ENT Exam: Mucous Membranes Moist, Normal Oropharynx - Neck Exam Neck exam: Normal Inspection - Respiratory Exam Respiratory Exam: Clear to PA & Lateral, NORMAL BREATHING PATTERN - Cardiovascular Exam Cardiovascular Exam: RRR, +S1, +S2 - GI/Abdominal Exam GI & Abdominal Exam: Normal Bowel Sounds. absent: Guarding - Extremities Exam Extremities exam: normal inspection - Neurological Exam Neurological exam: Alert, CN II-XII Intact, Normal Gait, Oriented x3 - Psychiatric Exam Psychiatric exam: Normal Affect, Normal Mood - Skin Skin Exam: Dry, Intact, Normal Color, Warm Discharge Plan - Follow Up Plan Condition: GUARDED Disposition: HOME/ ROUTINE Instructions: Generalized Weakness (DC), Paresthesias (DC) Additional Instructions: 1) Patient to follow up with PMD. 2) Patient to schedule appointment with orthopedist. 3) Patient to continue taking home medications as recommended. Referrals: Deisi Grover MD [Primary Care Provider] - <Rashid Hernandez - Last Filed: 09/26/17 09:06> Provider - Provider Date of Admission: 09/25/17 03:07 Attending physician: Yenifer Wooten MD Primary care physician: Deisi Grover MD Hospital Course - Lab Results Lab Results: Most Recent Lab Values WBC 6.5 10^3/ul (4.5-11.0) 09/25/17 08:45 RBC 4.35 10^6/uL (3.5-6.1) 09/25/17 08:45 Hgb 11.4 g/dL (12.0-16.0) L 09/25/17 08:45 Hct 34.2 % (36.0-48.0) L 09/25/17 08:45 MCV 78.6 fl (80.0-105.0) L 09/25/17 08:45 MCH 26.2 pg (25.0-35.0) 09/25/17 08:45 MCHC 33.3 g/dl (31.0-37.0) 09/25/17 08:45 RDW 14.5 % (11.5-14.5) 09/25/17 08:45 Plt Count 230 10^3/uL (120.0-450.0) 09/25/17 08:45 MPV 9.8 fl (7.0-11.0) 09/25/17 08:45 Gran % 51.5 % (50.0-68.0) 09/25/17 00:30 Lymph % (Auto) 38.5 % (22.0-35.0) H 09/25/17 00:30 [place] % (Auto) 7.8 % (1.0-6.0) H 09/25/17 00:30 Eos % (Auto) 2.0 % (1.5-5.0) 09/25/17 00:30 Baso % (Auto) 0.2 % (0.0-3.0) 09/25/17 00:30 Gran # 3.12 (1.4-6.5) 09/25/17 00:30 Lymph # (Auto) 2.3 (1.2-3.4) 09/25/17 00:30 [place] # (Auto) 0.5 (0.1-0.6) 09/25/17 00:30 Eos # (Auto) 0.1 (0.0-0.7) 09/25/17 00:30 Baso # (Auto) 0.01 K/mm3 (0.0-2.0) 09/25/17 00:30 PT 13.0 SECONDS (9.4-12.5) H 09/25/17 00:30 INR 1.14 (0.93-1.08) H 09/25/17 00:30 APTT 29.8 Seconds (25.1-36.5) 09/25/17 00:30 Sodium 139 mmol/L (132-148) 09/25/17 08:45 Potassium 4.0 mmol/L (3.6-5.0) 09/25/17 08:45 Chloride 104 mmol/L (98-107) 09/25/17 08:45 Carbon Dioxide 22 mmol/L (21-33) 09/25/17 08:45 Anion Gap 17 (10-20) 09/25/17 08:45 BUN 13 mg/dL (7-21) 09/25/17 08:45 Creatinine 0.6 mg/dl (0.7-1.2) L 09/25/17 08:45 Est GFR ( Amer) > 60 09/25/17 08:45 Est GFR (Non-Af Amer) > 60 09/25/17 08:45 POC Glucose (mg/dL) 218 mg/dL (65-110) H 09/25/17 11:18 Random Glucose 243 mg/dL (70-110) H 09/25/17 08:45 Calcium 9.6 mg/dL (8.4-10.5) 09/25/17 08:45 Phosphorus 3.1 mg/dL (2.5-4.5) 09/25/17 08:45 Magnesium 1.6 mg/dL (1.7-2.2) L 09/25/17 08:45 Total Bilirubin 0.6 mg/dL (0.2-1.3) 09/25/17 08:45 AST 31 U/L (14-36) 09/25/17 08:45 ALT 44 U/L (7-56) 09/25/17 08:45 Alkaline Phosphatase 58 U/L (38-126) 09/25/17 08:45 Total Protein 7.9 g/dL (5.8-8.3) 09/25/17 08:45 Albumin 4.2 g/dL (3.0-4.8) 09/25/17 08:45 Globulin 3.7 gm/dL 09/25/17 08:45 Albumin/Globulin Ratio 1.1 (1.1-1.8) 09/25/17 08:45 Attending/Attestation - Attestation I have personally seen and examined this patient.: Yes I have fully participated in the care of the patient.: Yes I have reviewed all pertinent clinical information, including history, physical exam and plan: Yes Notes (Text): 09/26/17 09:01 62 year old female with past medical history of hypertension, diabetes and CVA who was recently discharged (see last d/c summary) presented with right shoulder and hip pain. Xray of shoulder and hip were negative. She was seen by neurology who recommended outpatient MRI shoulder study. Patient is discharged home to follow up with pmd. Follow up with neurology. Recommended outpatient MRI. Continue with aspirin, plavix and statin as previously instructed. Rashid Hernandez MD Hospitalist.
--- NOTE | 2017-09-26 09:15 | CARD ---
APPROVED REPORT EXAM: Two-dimensional and M-mode echocardiogram with Doppler and color Doppler. Other Information Quality : AverageRhythm : INDICATION STROKE SYMPTOMS..R/O PFO BUBBLE STUDY 2D DIMENSIONS Left Atrium (2D)4.2 (1.6-4.0cm)IVSd1.3 (0.7-1.1cm) LVDd3.2 (3.9-5.9cm)PWd1.1 (0.7-1.1cm) LVDs2.3 (2.5-4.0cm)FS (%) 28.7 % LVEF (%)56.7 (>50%) M-Mode DIMENSIONS Aortic Root3.20 (2.2-3.7cm)Aortic Cusp Exc.1.90 (1.5-2.0cm) Aortic Valve AoV Peak Bmplbzae686.0cm/sAoV VTI33.2cmAO Peak GR.12mmHg LVOT Peak Wglmxpcd693.0cm/sLVOT VTI31.90cmAO Mean GR.6mmHg AI P 1/2 [id number] Mitral Valve MV E Qtnbzezf56.6cm/sMV A Ebtylxsj52.2cm/sE/A ratio0.7 TDI Lateral E' Peak V7.21cm/sMedial E' Peak V5.36cm/sE/Lateral E'9.5 E/Medial E'12.8 Pulmonary Valve PV Peak Tcykfmfa46.6cm/sPV Peak Grad.4mmHg Tricuspid Valve TR Peak Pauqbimj586wi/sRAP OIHCYGUU09gyVeSW Peak Gr.15mmHg [id number] LEFT VENTRICLE The left ventricle is normal size. There is normal left ventricular wall thickness. The left ventricular function is normal. The left ventricular ejection fraction is within the normal range. There is normal LV segmental wall motion. RIGHT VENTRICLE The right ventricle is normal size. ATRIA The left atrium is mildly dilated. The right atrium size is normal. The interatrial septum is intact with no evidence for an atrial septal defect. AORTIC VALVE The aortic valve is normal in structure. There is mild aortic regurgitation. MITRAL VALVE The mitral valve is normal in structure. Mitral regurgitation is trace to mild. TRICUSPID VALVE The tricuspid valve is normal in structure. There is trace tricuspid regurgitation. PULMONIC VALVE The pulmonic valve is not well visualized. GREAT VESSELS The aortic root is normal in size. PERICARDIAL EFFUSION There is no pleural effusion. <Conclusion> The left ventricle is normal size. There is normal left ventricular wall thickness. The left ventricular function is normal. There is mild aortic regurgitation. Mitral regurgitation is trace to mild. There is trace tricuspid regurgitation. NO PFO SEEN BY COLOR ANA OR BUBBLE STUDY
== END 2017-09-25 16:25 | disposition home or self-care (01) ==
LOC: ED 22:49 → ERH 09-25 03:07 → INTOOBSV 09-25 03:07 → 3RNO 09-25 05:02
PROVIDERS: ADMIT Hospitalist; ATTEND Hospitalist
DX: M75.41 Impingement syndrome of right shoulder (principal); E11.9 Type 2 diabetes mellitus without complications; M75.01 Adhesive capsulitis of right shoulder; E78.5 Hyperlipidemia, unspecified; I10 Essential (primary) hypertension; K21.9 Gastro-esophageal reflux disease without esophagitis; E78.00 Pure hypercholesterolemia, unspecified; I25.10 Atherosclerotic heart disease of native coronary artery without angina pectoris; H91.90 Unspecified hearing loss, unspecified ear; E66.9 Obesity, unspecified; Z68.30 Body mass index [BMI] 30.0-30.9, adult; Z86.19 Personal history of other infectious and parasitic diseases; Z86.73 Personal history of transient ischemic attack (TIA), and cerebral infarction without residual deficits; Z90.710 Acquired absence of both cervix and uterus; Z98.84 Bariatric surgery status; Z90.49 Acquired absence of other specified parts of digestive tract
CPT/HCPCS: 70450; 70496; 70498; 73030; 73522; 80053; 82948; 83735; 84100; 85025; 85027; 85610; 85730; 93306; 97116; 97161; 99285; G0378; G8978; G8979; G8980; Q9967

== ENCOUNTER 2018-08-25 23:58 | Inpatient (IN) | payer MEDICAID ==
[2018-08-26 00:07] VITALS: BMI 30.2
--- NOTE | 2018-08-26 00:25 | ED PDOC ---
Arrival/HPI - General Chief Complaint: GI Problem Time Seen by Provider: 08/26/18 00:10 Historian: Patient - History of Present Illness Narrative History of Present Illness (Text): 08/26/18 00:20 Carina Abbott is a 62 year old female, whose past medical history includes TIA, diabetes, hypertension, hyperlipidemia, GERD, and depression, who presents to the Emergency department complaining of diarrhea. Patient states she has b een experincing "black" diarrhea with associated generalized weakness. Patient was seen yesterday in the Emergency department for similar complaints and discharged home after symptoms improved. Patient denies any fever, chills, chest pain, shortness of breath, nausea, vomiting, urinary symptoms, back pain, neck pain, headache, dizziness, or any other complaints. Symptom Onset: Gradual Symptom Course: Unchanged Activities at Onset: Light Context: Home Past Medical History - Provider Review Nursing Documentation Reviewed: Yes - Infectious Disease Hx of Infectious Diseases: None - Tetanus Immunization Tetanus Immunization: Unknown - Cardiac Hx Cardiac Disorders: Yes Hx Hypertension: Yes - Pulmonary Hx Respiratory Disorders: Yes Hx Asthma: Yes - Neurological Hx Neurological Disorder: Yes Hx Dizziness: Yes Hx Transient Ischemic Attacks (TIA): Yes - HEENT Hx HEENT Disorder: Yes Hx Cataracts: Yes (bilateral surgery) Hx Deafness: Yes (hearing aids) - Renal Hx Renal Disorder: No - Endocrine/Metabolic Hx Endocrine Disorders: Yes Hx Diabetes Mellitus Type 2: Yes - Hematological/Oncological Hx Blood Disorders: Yes Hx Hepatitis C: Yes - Integumentary Hx Dermatological Disorder: No - Musculoskeletal/Rheumatological Hx Musculoskeletal Disorders: Yes Hx Falls: Yes - Gastrointestinal Hx Gastrointestinal Disorders: Yes Hx Gastroesophageal Reflux: Yes (occasionally with spicy foods) - Genitourinary/Gynecological Hx Genitourinary Disorders: No - Psychiatric Hx Psychophysiologic Disorder: Yes Hx Depression: Yes Hx Emotional Abuse: No Hx Physical Abuse: No Hx Substance Use: No - Surgical History Hx Cardiac Catheterization: Yes Hx Cholecystectomy: Yes Hx Gastric Bypass Surgery: Yes Hx Hysterectomy: Yes Other/Comment: hernia surgery; surgery of her nose - Anesthesia Hx Anesthesia Reactions: No Hx Malignant Hyperthermia: No - Suicidal Assessment Feels Threatened In Home Enviroment: No Family/Social History - Physician Review Nursing Documentation Reviewed: Yes Family/Social History: Unknown Family HX Smoking Status: Never Smoked Hx Alcohol Use: No Hx Substance Use: No Hx Substance Use Treatment: No Allergies/Home Meds Allergies/Adverse Reactions: Allergies Penicillins Allergy (Verified 08/24/17 01:49) ANAPHYLAXIS Home Medications: Home Meds Medication Instructions Recorded Confirmed RX: Ferrous Sulfate [Feosol] 325 mg PO BID 08/13/16 08/26/18 RX: Glimepiride [Amaryl] 1 mg PO DAILY 08/13/16 08/26/18 RX: Multivitamin [Daily Divina] 1 tab PO DAILY 09/18/16 08/26/18 RX: Cetirizine HCl [All Day 10 mg PO BID 11/10/16 08/26/18 Allergy Relief] RX: Albuterol Sulfate [Ventolin 1 puff IH Q6H PRN 08/26/18 08/26/18 Hfa] RX: Cholecalciferol (Vitamin D3) 50,000 unit PO QWK 08/26/18 08/26/18 [Vitamin D3] RX: Insulin Glargine,Hum.rec.anlog 30 unit SQ AMHS 08/26/18 08/26/18 [Basaglar Kwikpen U-100] RX: Insulin Glargine,Hum.rec.anlog 34 unit SQ QPM 08/26/18 08/26/18 [Basaglar Kwikpen U-100] RX: Losartan/Hydrochlorothiazide 1 each PO DAILY 08/26/18 08/26/18 [Losartan-Hctz 100-25 mg Tab] Review of Systems - Physician Review All systems were reviewed & negative as marked: Yes - Review of Systems Constitutional: Normal. absent: Fevers Eyes: Normal ENT: Normal Respiratory: Normal. absent: SOB, Cough Cardiovascular: Normal. absent: Chest Pain Gastrointestinal: Diarrhea Genitourinary Female: Normal Musculoskeletal: Normal Skin: Normal Neurological: Normal Endocrine: Normal Hemo/Lymphatic: Normal Psychiatric: Normal Physical Exam Vital Signs Reviewed: Yes Vital Signs Temp Pulse Resp BP Pulse Ox 08/26/18 00:14 97.6 F 98 H 18 157/76 H 98 Temperature: Afebrile Blood Pressure: Normal Pulse: Regular Respiratory Rate: Normal Appearance: Positive for: Well-Appearing, Non-Toxic, Comfortable Pain Distress: None Mental Status: Positive for: Alert and Oriented X 3 - Systems Exam Head: Present: Atraumatic, Normocephalic Pupils: Present: PERRL Extroacular Muscles: Present: EOMI Conjunctiva: Present: Normal Mouth: Present: Moist Mucous Membranes Neck: Present: Normal Range of Motion Respiratory/Chest: Present: Clear to Auscultation, Good Air Exchange. No: Respiratory Distress, Accessory Muscle Use Cardiovascular: Present: Regular Rate and Rhythm, Normal S1, S2. No: Murmurs Abdomen: No: Tenderness, Distention, Peritoneal Signs Back: Present: Normal Inspection Upper Extremity: Present: Normal Inspection. No: Cyanosis, Edema Lower Extremity: Present: Normal Inspection. No: Edema Neurological: Present: GCS=15, CN II-XII Intact, Speech Normal Skin: Present: Warm, Dry, Normal Color. No: Rashes Psychiatric: Present: Alert, Oriented x 3, Normal Insight, Normal Concentration Medical Decision Making ED Course and Treatment: 08/26/18 00:20 Impression: 62 year old female complaining of generalized weakness and shortness of breath. Plan: -- EKG -- Chest X-ray -- Labs, blood type and screen, amylase, lipase, cardiac enzymes -- IV fluids - Protonix -- Reassess and disposition Prior Visits: Notes and results from previous visits were reviewed. Progress Notes: Reviewed EKG, sinus tachycardia at [address]-segment elevations or depressions, no T-wave inversions, normal intervals. 08/26/18 01:53 Case discussed with certified medical records coder hair or beauty salon assistant, who is aware and agrees with plan. 08/26/18 01:[address] Joe, who is aware and agrees with plan. Accepts pt in to hospitalist service. Pt will be admitted to Telemetry for GI bleed. - Lab Interpretations I have reviewed the lab results: Yes - RAD Interpretation Process Improvement Manager: Radiologist - EKG Interpretation Interpreted by ED Physician: Yes Type: 12 lead EKG - Scribe Statement The provider has reviewed the documentation as recorded by the Milanibdestin Contreras Provider Scribe Attestation: All medical record entries made by the Scribe were at my direction and personally dictated by me. I have reviewed the chart and agree that the record accurately reflects my personal performance of the history, physical exam, medical decision making, and the department course for this patient. I have also personally directed, reviewed, and agree with the discharge instructions and disposition. Disposition/Present on Arrival - Present on Arrival Any Indicators Present on Arrival: No History of DVT/PE: No History of Uncontrolled Diabetes: Yes Urinary Catheter: No History of Decub. Ulcer: No History Surgical Site Infection Following: None - Disposition Have Diagnosis and Disposition been Completed?: Yes Diagnosis: Gastrointestinal bleeding, lower Disposition: HOSPITALIZED Disposition Time: 01:50 Condition: GOOD
[2018-08-26] MEDS: Sodium Chloride 0.9% 1,000 ML IV SCH ×2 (00:54→14:23)
[2018-08-26 01:04] LABS: BASO # 0.01 K/mm3 (0.0-2.0); BASO % 0.1 % (0.0-3.0); EOS # 0.2 (0.0-0.7); EOS % 2.8 % (1.5-5.0); LYMPH # 2.8 (1.2-3.4); LYMPH % 33.9 % (22.0-35.0); MEAN CELL VOLUME 86.2 fl (80.0-105.0); MEAN CORPUSCULAR HEMOGLOBIN 28.5 pg (25.0-35.0); MONO # 0.5 (0.1-0.6); MONO % 5.4 % (1.0-6.0); RBC 2.46 10^6/uL (3.5-6.1); RED CELL DISTRIBUTION WIDTH 14.7 % (11.5-14.5); WHITE BLOOD COUNT 8.3 10^3/uL (4.5-11.0)
[2018-08-26 01:11] LABS: ALB/GLOB RATIO 1.3 (1.1-1.8); ALT/SGPT 32 U/L (7-56); AMYLASE 39 U/L (35-125); AST/SGOT 38 U/L (14-36); BLOOD UREA NITROGEN 18 mg/dL (7-21); CALCIUM 9.6 mg/dL (8.4-10.5); GFR NON-AFRICAN AMERICAN > 60; LIPASE 65 U/L (23-300)
[2018-08-26 01:16] LABS: INR 1.23; PARTIAL THROMBOPLASTIN TIME 31.1 Seconds (26.9-38.3); PROTHROMBIN TIME 13.6 SECONDS (9.4-12.5)
[2018-08-26 01:21] LABS: TROPONIN I < 0.01 ng/mL
[2018-08-26 02:43] LABS: IRON 64 ug/dL (45-180)
[2018-08-26 02:54] LABS: % IRON SATURATION 18 % (20-55); TOTAL IRON BINDING CAPACITY 357 ug/dL (265-497)
--- NOTE | 2018-08-26 03:06 | CP.PCM.HP ---
<Isabelle Overton - Last Filed: 08/26/18 06:12> History of Present Illness - History of Present Illness History of Present Illness: Resident History & Physical for Hospitalist Service Patient is a 62 year old female with past medical history of TIA, T2DM, HTN, HLD, GERD, arthritis, obesity, hepatitis C (treated), depression presenting with chief complaint of four dark loose bowel movements over the past three days. She states this has never happened to her before. Patient is compliant with her home medications and takes Celecoxib daily. She also admits to dizziness, fatigue, and nausea. Denies fevers, chills, hematemesis, chest pain, shortness of breath, abdominal pain, sick contacts. PMH: TIA, T2DM, HTN, HLD, GERD, arthritis, obesity, hepatitis C (treated), depression PSH: gastric bypass, hernia repair, cholecystectomy SHx: denies tobacco, ETOH or illicit drug use Allergies: penicillins PMD: Dr. Ortiz Present on Admission - Present on Admission Any Indicators Present on Admission: No Review of Systems - Review of Systems All systems: reviewed and no additional remarkable complaints except (as stated in HPI) Past Patient History - Infectious Disease Hx of Infectious Diseases: None - Tetanus Immunizations Tetanus Immunization: Unknown - Past Social History Smoking Status: Never Smoked - CARDIAC Hx Cardiac Disorders: Yes Hx Hypertension: Yes - PULMONARY Hx Respiratory Disorders: Yes Hx Asthma: Yes - NEUROLOGICAL Hx Neurological Disorder: Yes Hx Dizziness: Yes Hx Transient Ischemic Attacks (TIA): Yes - HEENT Hx HEENT Problems: Yes Hx Cataracts: Yes (bilateral surgery) Hx Deafness: Yes (hearing aids) - RENAL Hx Chronic Kidney Disease: No - ENDOCRINE/METABOLIC Hx Endocrine Disorders: Yes Hx Diabetes Mellitus Type 2: Yes - HEMATOLOGICAL/ONCOLOGICAL Hx Blood Disorders: Yes Hx Hepatitis C: Yes - INTEGUMENTARY Hx Dermatological Problems: No - MUSCULOSKELETAL/RHEUMATOLOGICAL Hx Musculoskeletal Disorders: Yes Hx Falls: Yes - GASTROINTESTINAL Hx Gastrointestinal Disorders: Yes Hx Gastroesophageal Reflux: Yes (occasionally with spicy foods) - GENITOURINARY/GYNECOLOGICAL Hx Genitourinary Disorders: No - PSYCHIATRIC Hx Psychophysiologic Disorder: Yes Hx Depression: Yes Hx Emotional Abuse: No Hx Physical Abuse: No Hx Substance Use: No - SURGICAL HISTORY Hx Cardiac Catheterization: Yes Hx Cholecystectomy: Yes Hx Gastric Bypass Surgery: Yes Hx Hysterectomy: Yes Other/Comment: hernia surgery; surgery of her nose - ANESTHESIA Hx Anesthesia Reactions: No Hx Malignant Hyperthermia: No Meds Allergies/Adverse Reactions: Allergies Allergy/AdvReac Type Severity Reaction Status Date / Time Penicillins Allergy ANAPHYLAXIS Verified 08/24/17 01:49 Physical Exam - Constitutional Appears: Non-toxic, No Acute Distress - Head Exam Head Exam: ATRAUMATIC, NORMOCEPHALIC - Eye Exam Eye Exam: EOMI, Normal appearance - ENT Exam ENT Exam: Mucous Membranes Dry - Neck Exam Neck exam: Positive for: Full Rom, Normal Inspection - Respiratory Exam Respiratory Exam: Clear to Auscultation Bilateral, NORMAL BREATHING PATTERN. absent: Rales, Rhonchi, Wheezes, Respiratory Distress - Cardiovascular Exam Cardiovascular Exam: REGULAR RHYTHM, +S1, +S2. absent: Systolic Murmur - GI/Abdominal Exam GI & Abdominal Exam: Normal Bowel Sounds, Soft. absent: Distended, Firm, Gua rding, Rebound, Rigid, Tenderness - Rectal Exam Additional comments: normal rectal tone no masses or blood - Extremities Exam Extremities exam: Positive for: normal capillary refill, normal inspection, pedal pulses present. Negative for: pedal edema - Back Exam Back exam: NORMAL INSPECTION - Neurological Exam Neurological exam: Alert, CN II-XII Intact, Oriented x3 - Psychiatric Exam Psychiatric exam: Normal Affect, Normal Mood - Skin Skin Exam: Dry, Intact, Normal Color, Warm Results - Vital Signs Recent Vital Signs: Last Vital Signs Temp 97.6 F 08/26/18 00:14 Pulse 95 H 08/26/18 01:40 Resp 18 08/26/18 01:40 BP 123/57 L 08/26/18 01:40 Pulse Ox 99 08/26/18 01:40 - Labs Result Diagrams: 08/26/18 00:49 08/26/18 00:49 Labs: Laboratory Results - last 24 hr 08/26/18 08/26/18 08/26/18 00:49 00:49 00:49 WBC 8.3 RBC 2.46 L Hgb 7.0 L D Hct 21.2 L MCV 86.2 D MCH 28.5 MCHC 33.0 RDW 14.7 H Plt Count 231 MPV 9.0 Neut % (Auto) 57.8 Lymph % (Auto) 33.9 Dent % (Auto) 5.4 Eos % (Auto) 2.8 Baso % (Auto) 0.1 Lymph # (Auto) 2.8 Dent # (Auto) 0.5 Eos # (Auto) 0.2 Baso # (Auto) 0.01 Absolute Neuts (auto) 4.78 PT 13.6 H INR 1.23 APTT 31.1 Sodium 135 Potassium 3.8 Chloride 99 Carbon Dioxide 27 Anion Gap 12 BUN 18 Creatinine 0.5 L Est GFR ( Amer) > 60 Est GFR (Non-Af Amer) > 60 Random Glucose 164 H Calcium 9.6 Iron TIBC % Saturation Total Bilirubin 0.4 AST 38 H D ALT 32 Alkaline Phosphatase 51 Lactate Dehydrogenase 429 Total Creatine Kinase 132 Troponin I < 0.01 Total Protein 7.1 Albumin 4.0 Globulin 3.1 Albumin/Globulin Ratio 1.3 Amylase 39 Lipase 65 Blood Type Antibody Screen Crossmatch BBK History Checked 08/26/18 08/26/18 08/26/18 00:49 01:00 01:00 WBC RBC Hgb Hct MCV MCH MCHC RDW Plt Count MPV Neut % (Auto) Lymph % (Auto) Dent % (Auto) Eos % (Auto) Baso % (Auto) Lymph # (Auto) Dent # (Auto) Eos # (Auto) Baso # (Auto) Absolute Neuts (auto) PT INR APTT Sodium Potassium Chloride Carbon Dioxide Anion Gap BUN Creatinine Est GFR ( Amer) Est GFR (Non-Af Amer) Random Glucose Calcium Iron 64 TIBC 357 % Saturation 18 L Total Bilirubin AST ALT Alkaline Phosphatase Lactate Dehydrogenase Total Creatine Kinase Troponin I Total Protein Albumin Globulin Albumin/Globulin Ratio Amylase Lipase Blood Type A POSITIVE Antibody Screen Negative Crossmatch See Detail BBK History Checked Patient has bt Patient has bt Assessment & Plan - Assessment and Plan (Free Text) Assessment: Patient is a 62 year old female with past medical history of TIA, T2DM, HTN, HLD, GERD, arthritis, obesity, hepatitis C (treated), depression admitted for workup and management of GI bleed. Plan: GI bleed - hemodynamically stable - 2 units pRBCs to be given - GI consulted. Appreciate recs. - NPO - Protonix drip - NS @ 80 ccs/hr - monitor and transfuse PRN - CT abd/pelvis with IV contrast - FOBT T2DM - Hgba1c - ISS, Accuchecks PPX - SCDs, protonix drip Case discussed with Dr. Tatyana Overton PGY-1 - Date & Time Date: 08/26/18 Time: 03:06 <Laura Joe - Last Filed: 08/26/18 06:31> Results - Vital Signs Recent Vital Signs: Last Vital Signs Temp 97.8 F 08/26/18 06:18 Pulse 98 H 08/26/18 06:18 Resp 18 08/26/18 06:18 BP 119/58 L 08/26/18 06:18 Pulse Ox 99 08/26/18 01:40 - Labs Result Diagrams: 08/26/18 00:49 08/26/18 00:49 Labs: Laboratory Results - last 24 hr 08/26/18 08/26/18 08/26/18 00:49 00:49 00:49 WBC 8.3 RBC 2.46 L Hgb 7.0 L D Hct 21.2 L MCV 86.2 D MCH 28.5 MCHC 33.0 RDW 14.7 H Plt Count 231 MPV 9.0 Neut % (Auto) 57.8 Lymph % (Auto) 33.9 Dent % (Auto) 5.4 Eos % (Auto) 2.8 Baso % (Auto) 0.1 Lymph # (Auto) 2.8 Dent # (Auto) 0.5 Eos # (Auto) 0.2 Baso # (Auto) 0.01 Absolute Neuts (auto) 4.78 PT 13.6 H INR 1.23 APTT 31.1 Sodium 135 Potassium 3.8 Chloride 99 Carbon Dioxide 27 Anion Gap 12 BUN 18 Creatinine 0.5 L Est GFR ( Amer) > 60 Est GFR (Non-Af Amer) > 60 Random Glucose 164 H Calcium 9.6 Iron TIBC % Saturation Total Bilirubin 0.4 AST 38 H D ALT 32 Alkaline Phosphatase 51 Lactate Dehydrogenase 429 Total Creatine Kinase 132 Troponin I < 0.01 Total Protein 7.1 Albumin 4.0 Globulin 3.1 Albumin/Globulin Ratio 1.3 Amylase 39 Lipase 65 Blood Type Antibody Screen Crossmatch BBK History Checked 08/26/18 08/26/18 08/26/18 00:49 01:00 01:00 WBC RBC Hgb Hct MCV MCH MCHC RDW Plt Count MPV Neut % (Auto) Lymph % (Auto) Dent % (Auto) Eos % (Auto) Baso % (Auto) Lymph # (Auto) Dent # (Auto) Eos # (Auto) Baso # (Auto) Absolute Neuts (auto) PT INR APTT Sodium Potassium Chloride Carbon Dioxide Anion Gap BUN Creatinine Est GFR ( Amer) Est GFR (Non-Af Amer) Random Glucose Calcium Iron 64 TIBC 357 % Saturation 18 L Total Bilirubin AST ALT Alkaline Phosphatase Lactate Dehydrogenase Total Creatine Kinase Troponin I Total Protein Albumin Globulin Albumin/Globulin Ratio Amylase Lipase Blood Type Cancelled A POSITIVE Antibody Screen Cancelled Negative Crossmatch See Detail BBK History Checked Cancelled Patient has bt Attending/Attestation - Attestation I have personally seen and examined this patient.: Yes I have fully participated in the care of the patient.: Yes I have reviewed all pertinent clinical information: Yes
[2018-08-26] MEDS ORDERED: Dextrose 50% SYRINGE Inj (50 ml) IV PRN (03:17)
[2018-08-26] MEDS ORDERED: Iohexol 350 MG/100 ML VIAL ONE (03:34)
[2018-08-26] MEDS: Insulin Lispro (humaLOG) LOW Coverage SC SCH ×4 (04:00→22:27)
[2018-08-26] MEDS: Pantoprazole 40mg/100mL NS 40 MG/100 ML BAG IVPB SCH ×4 (04:15→23:00)
--- NOTE | 2018-08-26 09:48 | RAD ---
Date of service: 08/26/2018 HISTORY: gi bleed COMPARISON: 09/22/2017 FINDINGS: LUNGS: No active pulmonary disease. PLEURA: No significant pleural effusion identified, no pneumothorax apparent. CARDIOVASCULAR: No aortic atherosclerotic calcification present. Normal cardiac size. No pulmonary vascular congestion. OSSEOUS STRUCTURES: No significant abnormalities. VISUALIZED UPPER ABDOMEN: Normal. OTHER FINDINGS: None. IMPRESSION: No active disease.
--- NOTE | 2018-08-26 10:08 | CARD ---
APPROVED REPORT Date of service: 08/26/2018 EKG Measurement Heart [id number] <Conclusion> Sinus tachycardia Otherwise normal ECG
--- NOTE | 2018-08-26 11:35 | CT ---
Date of service: 08/26/2018 PROCEDURE: CT Abdomen and Pelvis with contrast HISTORY: Gi bleed COMPARISON: None. TECHNIQUE: Contrast dose: 100 cc of Omni 350 Radiation dose: Total exam DLP = 454.43 mGy-cm. This CT exam was performed using one or more of the following dose reduction techniques: Automated exposure control, adjustment of the mA and/or kV according to patient size, and/or use of iterative reconstruction technique. FINDINGS: LOWER THORAX: Unremarkable. LIVER: Unremarkable. No gross lesion or ductal dilatation. Fatty infiltration of the liver GALLBLADDER AND BILE DUCTS: Gallbladder removed PANCREAS: Unremarkable. No gross lesion or ductal dilatation. SPLEEN: Unremarkable. ADRENALS: Unremarkable. No mass. KIDNEYS AND URETERS: Unremarkable. No hydronephrosis. No solid mass. VASCULATURE: Unremarkable. No aortic aneurysm. Aortic calcification BOWEL: Unremarkable. No obstruction. No gross mural thickening. APPENDIX: Normal appendix. PERITONEUM: Unremarkable. No free fluid. No free air. LYMPH NODES: Unremarkable. No enlarged lymph nodes. BLADDER: Unremarkable. REPRODUCTIVE: Unremarkable. BONES: No acute fracture. OTHER FINDINGS: The report concurs with the preliminary [facility] report IMPRESSION: Fatty infiltration of the liver. Previous cholecystectomy. No acute intra-abdominal findings.
[2018-08-26 12:28] LABS: BASO # 0.01 K/mm3 (0.0-2.0); BASO % 0.1 % (0.0-3.0); EOS # 0.1 (0.0-0.7); EOS % 1.4 % (1.5-5.0); LYMPH # 2.3 (1.2-3.4); LYMPH % 28.8 % (22.0-35.0); MEAN CELL VOLUME 85.8 fl (80.0-105.0); MEAN CORPUSCULAR HGB CONC 33.8 g/dl (31.0-37.0); MEAN PLATELET VOLUME 9.3 fl (7.0-11.0); MONO # 0.4 (0.1-0.6); MONO % 4.4 % (1.0-6.0); RBC 3.45 10^6/uL (3.5-6.1); RED CELL DISTRIBUTION WIDTH 14.6 % (11.5-14.5); WHITE BLOOD COUNT 7.9 10^3/uL (4.5-11.0)
[2018-08-26 12:39] LABS: ALB/GLOB RATIO 1.2 (1.1-1.8); ALT/SGPT 33 U/L (7-56); AST/SGOT 38 U/L (14-36); BLOOD UREA NITROGEN 14 mg/dL (7-21); CALCIUM 9.4 mg/dL (8.4-10.5); GFR NON-AFRICAN AMERICAN > 60
--- NOTE | 2018-08-26 13:09 | CON ---
DATE: 08/26/2018 PULMONARY CONSULT NOTE REFERRING PHYSICIAN: Dr. Costa. REASON FOR CONSULT: Chronic lung disease, sleep apnea and shortness of breath. HISTORY OF PRESENT ILLNESS: This is a 62-year-old female known to us from the office with past medical history of TIA, type II diabetes mellitus, hypertension, hyperlipidemia, GERD, arthritis, obesity, hepatitis C treated, depression, history of gastric bypass, hernia repair and cholecystectomy. The patient has history of obstructive sleep apnea, refusing to use CPAP and chronic obstructive lung disease. The patient presented to the emergency room complaining of loose bowel movements, stool being dark and black over the past three days. The patient complained of dizziness, fatigue and nausea. At this time, the patient seen in ER states that she feels very weak, has been having black stools, has headache. Denies cough, chest pain, abdominal pain, nausea, vomiting, leg pain and leg swelling. Reports that she was having some shortness of breath prior, no shortness of breath at this time. PAST MEDICAL HISTORY: As per history of present illness. SOCIAL HISTORY: No ETOH, no illicit drug use and nonsmoker. ALLERGIES: PENICILLIN. FAMILY HISTORY: No cardiopulmonary disease reported. MEDICATIONS: Reviewed. Tylenol 650 mg every 4 hours p.r.n. fever greater than 100.4, Humalog every 6 hours, Zofran 4 mg IV push every 4 hours p.r.n., Protonix 40 mg every 5 hours and sodium chloride 0.9% a 1000 mL at 80 mL per hour. REVIEW OF SYSTEMS: No rhinitis, cough, chest pain, abdominal pain, nausea, vomiting, leg pain and leg swelling reported. The patient does report having headache, has shortness of breath at times. Reported having loose dark stool, was having some nausea. Reports feeling weak. PHYSICAL EXAMINATION: VITAL SIGNS: Blood pressure 140/63, pulse 92, temperature 97.8 and oxygen saturation 97% on room air. GENERAL: No acute distress. HEENT: Moist mucous membranes. Mallampati score 4. NECK: Supple. No JVD. LUNGS: Clear bilaterally. CARDIOVASCULAR: S1 and S2. ABDOMEN: Soft and nontender. No distention. EXTREMITIES: No bilateral lower extremity edema. NEUROLOGIC: Awake, alert and verbal. Follows commands. LABORATORY DATA: Reviewed. WBC 8.3, RBC 2.46, hemoglobin 7.0, hematocrit 21.2 and platelets 231. PT 13.6, INR 1.23 and APTT 31.1. Sodium 135, potassium 3.8, chloride 99, carbon dioxide 27, anion gap 12, BUN 18, creatinine 0.5, GFR greater than 60, POC glucose 135, random glucose 164, calcium 9.6, iron 64, TIBC 357, percent saturation 18, total bilirubin 0.4, AST 38, ALT 32, alkaline phosphatase 51, lactate dehydrogenase 429, total creatine kinase 132, troponin less than 0.01, total protein 7.1, albumin 4.1, globulin 3.1, albumin-globulin ratio 1.3, amylase 39 and lipase 65. Chest x-ray shows no active disease. EKG shows sinus tachycardia. Abdomen and pelvis CT shows fatty infiltration of the liver. Previous cholecystectomy no acute intraabdominal findings. IMPRESSION AND PLAN: Gastrointestinal bleed, chronic obstructive lung disease, obstructive sleep apnea syndrome, history of transient ischemia attack, type II diabetes mellitus, hypertension, gastroesophageal reflux disease, arthritis, hyperlipidemia, hepatitis C treated, obesity and depression. The patient presently being transfused getting blood transfusion. We will order B12 and folate to be done. The patient is pending stool for occult blood and stool cultures. We will start the patient on inhaled bronchodilators, Brovana and Pulmicort. We will start the patient on Singulair for chronic obstructive lung disease. Sequential compression devices to bilateral lower extremity for deep venous thrombosis prophylaxis, gastric prophylaxis, sleep apnea precaution and head of bed elevated at 45 degrees. The patient refusing continuous positive airway pressure machine at this time. We will monitor H and H closely. This patient was seen and examined with Dr. Ortiz. Discussed assessment and plan as described above. This patient was seen and examined with Leandro Elizalde nurse practitioner. Discussed assessment and plan as described above. Thank you for this consult. We will follow with you. Leandro Elizalde APN Dayan Ortiz MD
[2018-08-26] MEDS ORDERED: Influenza Vaccine 60 mcg/0.5 mL SYR (4YR UP) IM ONE (14:22)
[2018-08-26] MEDS ORDERED: Pneumococcal 23-Valent Vaccine IM ONE (14:22)
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
[2018-08-26 17:39] LABS: FOLATE 15.1 ng/mL
[2018-08-26] MEDS: Dextrose 5%/0.9% NS 1,000 ML IV SCH (17:46)
[2018-08-26] MEDS: Budesonide 0.5 mg/2 ml Inhal Susp UD IH SCH (19:19)
[2018-08-26] MEDS: Arformoterol 15 mcg/2 ml Inh Sol IH SCH (19:19)
[2018-08-26] MEDS ORDERED: Alum-Mag Hydrox-Simethicone Susp (30 mL) PO ONE (21:52)
[2018-08-27 01:44] LABS: URINE BILIRUBIN NEGATIVE (NEGATIVE); URINE BLOOD NEGATIVE (NEGATIVE); URINE GLUCOSE (UA) NEGATIVE (NEGATIVE); URINE LEUKOCYTE ESTERASE TRACE Leu/uL (NEGATIVE); URINE PROTEIN NEGATIVE mg/dL (<30 mg/dL); URINE UROBILINOGEN 0.2 E.U./dL (<1 E.U./dL)
[2018-08-27 01:45] LABS: URINE APPEARANCE CLEAR (CLEAR); URINE COLOR YELLOW (YELLOW)
[2018-08-27 02:02] LABS: URINE BACTERIA FEW /hpf; URINE RBC 0 - 2 /hpf (0-2)
[2018-08-27] MEDS: Insulin Lispro (humaLOG) LOW Coverage SC SCH ×4 (02:40→21:48)
[2018-08-27] MEDS: Pantoprazole 40mg/100mL NS 40 MG/100 ML BAG IVPB SCH ×3 (02:47→17:46)
[2018-08-27] MEDS: Dextrose 5%/0.9% NS 1,000 ML IV SCH (04:37)
[2018-08-27 06:41] LABS: BASO # 0.02 K/mm3 (0.0-2.0); BASO % 0.3 % (0.0-3.0); EOS # 0.2 (0.0-0.7); EOS % 2.7 % (1.5-5.0); HEMOGLOBIN 9.2 g/dL (12.0-16.0); LYMPH # 1.7 (1.2-3.4); LYMPH % 28.3 % (22.0-35.0); MEAN CELL VOLUME 86.7 fl (80.0-105.0); MEAN CORPUSCULAR HEMOGLOBIN 28.5 pg (25.0-35.0); MEAN CORPUSCULAR HGB CONC 32.9 g/dl (31.0-37.0); MONO # 0.4 (0.1-0.6); RBC 3.23 10^6/uL (3.5-6.1); RED CELL DISTRIBUTION WIDTH 15.3 % (11.5-14.5)
[2018-08-27 07:32] LABS: ALB/GLOB RATIO 1.2 (1.1-1.8); ALBUMIN 3.8 g/dL (3.0-4.8); ALT/SGPT 36 U/L (7-56); AST/SGOT 49 U/L (14-36); BLOOD UREA NITROGEN 13 mg/dL (7-21); CALCIUM 8.5 mg/dL (8.4-10.5); GFR NON-AFRICAN AMERICAN > 60
--- NOTE | 2018-08-27 07:43 | CP.PCM.PN ---
<Iggy Braden - Last Filed: 08/27/18 12:31> Subjective - Date & Time of Evaluation Date of Evaluation: 08/27/18 Time of Evaluation: 07:41 - Subjective Subjective: Iggy Braden DO, PGY-1 Hospitalist Progress Note for Dr. Annette Costa Patient was seen and examined at bedside this AM. She is now s/p EGD this AM. She is still having melanotic stools but states her fatigue/SOB have both improved. Objective - Vital Signs/Intake and Output Vital Signs (last 24 hours): Temp Pulse Resp BP Pulse Ox 98.1 F 86 20 143/97 H 98 08/27/18 06:00 08/27/18 06:00 08/27/18 06:00 08/27/18 06:00 08/27/18 06:00 Intake and Output: 08/27/18 08/27/18 06:59 18:59 Intake Total 1440 Output Total 100 Balance 1340 - Medications Medications: Current Medications Acetaminophen (Tylenol 650 Mg Supp) 650 mg RC Q4H PRN PRN Reason: Fever >100.4 F Last Admin: 08/26/18 14:27 Dose: 650 mg Arformoterol Tartrate (Brovana) 15 mcg IH [id number] [facility] Last Admin: 08/26/18 19:19 Dose: 15 mcg Budesonide (Pulmicort Respules) 0.5 mg IH [id number] [facility] Last Admin: 08/26/18 19:19 Dose: 0.5 mg Dextrose (Dextrose 50% Inj) 0 ml IV STAT PRN; Protocol PRN Reason: Hypoglycemia Protocol Pantoprazole Sodium (Protonix 40mg Ivpb) 40 mg in 100 mls @ 20 mls/hr IVPB .Q5H [facility] Last Admin: 08/27/18 05:36 Dose: 20 mls/hr Dextrose (Dextrose 5% In Water 1000 Ml) 1,000 mls @ 0 mls/hr IV .Q0M PRN; Protocol PRN Reason: Hypoglycemia Protocol Dextrose/Sodium Chloride (Dextrose 5%/0.9% Ns 1000 Ml) 1,000 mls @ 80 mls/hr IV .[id number] [facility] Stop: 08/27/18 16:31 Last Admin: 08/27/18 04:37 Dose: 80 mls/hr Insulin Human Lispro (Humalog Low) 0 units SC Q6H MANDA; Protocol Last Admin: 08/27/18 02:40 Dose: Not Given Montelukast Sodium (Singulair) 10 mg PO HS MANDA Last Admin: 08/26/18 21:17 Dose: 10 mg Ondansetron HCl (Zofran Inj) 4 mg IVP Q4H PRN PRN Reason: Nausea/Vomiting - Labs Labs: 08/27/18 06:15 08/27/18 06:15 PT 13.6 SECONDS (9.4-12.5) H 08/26/18 00:49 INR 1.23 08/26/18 00:49 APTT 31.1 Seconds (26.9-38.3) 08/26/18 00:49 - Constitutional Appears: Non-toxic, No Acute Distress - Head Exam Head Exam: ATRAUMATIC, NORMOCEPHALIC - Eye Exam Eye Exam: EOMI, PERRL - ENT Exam ENT Exam: Mucous Membranes Moist - Neck Exam Neck Exam: Full ROM, Normal Inspection - Respiratory Exam Respiratory Exam: Clear to Ausculation Bilateral, NORMAL BREATHING PATTERN. absent: Rales, Rhonchi, Wheezes - Cardiovascular Exam Cardiovascular Exam: REGULAR RHYTHM, RRR, +S1, +S2. absent: Gallop, Rubs, Murmur - GI/Abdominal Exam GI & Abdominal Exam: Soft, Tenderness (mild tenderness to palpation mid- epigastric region). absent: Guarding, Rebound - Extremities Exam Extremities Exam: Normal Inspection. absent: Pedal Edema - Back Exam Back Exam: NORMAL INSPECTION - Neurological Exam Neurological Exam: Alert, Awake, Oriented x3 - Psychiatric Exam Psychiatric exam: Normal Affect, Normal Mood - Skin Skin Exam: Dry, Intact, Warm Assessment and Plan - Assessment and Plan (Free Text) Assessment: 62 yo F with PMH of DM2, TIA, arthritis, HTN, HLD, GERD, and Hep C who presented to ED with complaint of 3-4 days of increasing melanotic stools. FOBT was found to be positive and H/H 7.2 in ED. She is admitted for management of acute GIB. Plan: Presumed GI Bleed Suspect most likely upper GIB given history of melanotic/black stools CTAP showed fatty liver but no acute bleed Patient is now s/p EGD EGD found one lesion and was biopsied but without stigmata of recent bleeding Per GI recs, ok to d/c protonix drip, IVF, and advance diet to regular but hold home ASA/plavix Will contact Dr. Ortiz regarding whether ASA/plavix may be discontinued safely GI following, all recs appreciated Normocytic anemia Most likely 2/2 acute blood loss anemia from GIB H/H improved to 10/29.6 s/p transfusion of 2 u PRBCs yesterday However, patient continues to have melanotic stools and H/H downtrending this AM Will continue to monitor overnight SOB/Fatigue Most likely part of symptomatic anemia Continue brovana, pulmicort Hx HTN/HLD May resume home meds if needed but BP has been stable Continue to monitor Hx DM2 A1c this visit is 8 ISS while admitted Will need outpatient f/u for better management Consider increasing home meds prior to discharge DVT/GI PPX: SCD (additional ppx held due to GIB)/protonix Full Code HHD Monitor on telemetry Patient seen, examined, and plan discussed with my attending Dr. Annette Braden D.O. IM Resident PGY-1 Pager: [phone] <Carla Cosat R - Last Filed: 08/29/18 13:07> Objective - Vital Signs/Intake and Output Vital Signs (last 24 hours): Temp Pulse Resp BP Pulse Ox 97.9 F 95 H 20 137/66 95 08/28/18 12:36 08/28/18 14:00 08/28/18 12:36 08/28/18 12:36 08/28/18 06:06 - Labs Labs: 08/28/18 07:00 08/28/18 07:00 PT 13.6 SECONDS (9.4-12.5) H 08/26/18 00:49 INR 1.23 08/26/18 00:49 APTT 31.1 Seconds (26.9-38.3) 08/26/18 00:49 Attending/Attestation - Attestation I have personally seen and examined this patient.: Yes I have fully participated in the care of the patient.: Yes I have reviewed all pertinent clinical information, including history, physical exam and plan: Yes Notes (Text): Patient seen and examined by me with resident at 11:35 AM on 08/27/18. Case including HPI, physical exam, and assessment and plan discussed with resident. Agree with above with following additions/corrections. Patient is a 62-year-old female past medical history significant for TIA, type 2 diabetes, hypertension, hyperlipidemia, GERD, arthritis, hepatitis C status post treatment, and depression that presented to the emergency room with dark stools. Patient states she is feeling better. States she is still having some dark stools. Denies any shortness of breath. Denies any nausea, vomiting, or abdominal pain. No headaches or dizziness. No lightheadedness. No chest pain or palpitations. No dysuria. Physical exam: General: Awake and alert lying in bed in no acute distress. HEENT: Normocephalic, atraumatic. Extraocular muscles intact, pupils equal and reactive, no scleral icterus. Oropharynx is pink and moist. No pharyngeal erythema or exudate appreciated. Neck is supple. Cardiovascular: Normal rhythm. Normal S1 and S2. No murmurs, rubs, or gallops appreciated Pulmonary: Normal respiratory effort. No rhonchi, rales, or wheezing appreciated. Gastrointestinal: Soft, nondistended. Nontender. Positive bowel sounds all 4 quadrants. No guarding. Musculoskeletal: Moves all extremities. No calf tenderness. No edema appreciated. Central nervous system: AAOx3, CN 2-12 grossly intact. Dermatologic: Skin warm and dry. Assessment and plan: Patient is a 62-year-old female past medical history significant for TIA, type 2 diabetes, hypertension, hyperlipidemia, GERD, arthritis, hepatitis C status post treatment, and depression that presented to the emergency room with dark stools. 1. GI bleed. Leasing Specialist following, recommendations appreciated. CT abdomen and pelvis per radiologist showed fatty filtration of the liver, previous cholecystectomy, no acute intra-abdominal findings. Patient status post 2 units packed red blood cells. H&H improved, however, down trended today. Patient status post EGD which per GI showed single mucosal nodule with superficial ulceration in the stomach, biopsied. Continue PPI. Continue ferrous sulfate. Patient advised to stay off NSAIDs for 2 weeks per GI. Patient to continue follow-up with her shim plug cutter at [facility]. 2. Symptomatic anemia secondary to acute blood loss. GI following, recommendations appreciated. Status post 2 units packed red blood cells. H&H downtrending today. We'll monitor overnight this patient is still having "black" stools. 3. Shortness of breath/Fatigue. Likely secondary to symptomatic anemia. Resolved. Pulmonary following, recommendations appreciated. Continue brovana and pulmicort. Continue Singulair. 4. DM2. Continue insulin sliding scale. Continue to monitor accuchecks 5. Essential hypertension. Patient to continue home medications upon discharge 6. Hyperlipidemia. Patient to continue home medications upon dishcarge. 7. Sleep apnea. Pulmonary following, recommendations appreciated. Patient has refused CPAP in past. Patient did use here. 8. Patient is a full code. Case was discussed in detail with the patient regarding current diagnosis and treatment plan. All questions answered.
[2018-08-27] MEDS: Arformoterol 15 mcg/2 ml Inh Sol IH SCH ×2 (08:05→19:01)
[2018-08-27] MEDS: Budesonide 0.5 mg/2 ml Inhal Susp UD IH SCH ×2 (08:05→19:01)
[2018-08-27] MEDS ORDERED: Sodium Chloride 0.9% 1,000 ML IV SCH (08:30)
[2018-08-27] MEDS ORDERED: Propofol 10 mg/ml Inj (20 ML) ONE (08:38)
--- NOTE | 2018-08-27 12:21 | PN ---
DATE: 08/27/2018 PULMONARY PROGRESS NOTE REFERRING PHYSICIAN: Dr. Costa SUBJECTIVE: The patient is sitting in chair in room. Reports feeling well today. No acute distress. No overnight events reported. The patient reports that she is still producing black stools. Had endoscopy done this morning. No headache, rhinitis, cough, shortness of breath, chest pain, abdominal pain, nausea, vomiting, leg pain or leg swelling reported. PHYSICAL EXAMINATION GENERAL: No acute distress. VITAL SIGNS: Blood pressure 119/60, pulse 83, temperature 98.1, oxygen saturation 96% on room air. HEENT: Moist mucous membranes. Mallampati score of 4. NECK: Supple. No JVD. LUNGS: Clear bilaterally. CARDIOVASCULAR: S1 and S2. ABDOMEN: Soft, nontender. No distention. No organomegaly. EXTREMITIES: No bilateral lower extremity edema. NEUROLOGIC: Awake, alert and verbal. Follows commands. LABORATORY DATA: Reviewed. WBC 6, RBC 3.23. Hemoglobin 9.2, hematocrit 28, platelets 216. Sodium 137, potassium 3.8, chloride 107. Carbon dioxide 26, anion gap 7, BUN 13, creatinine 0.5, GFR greater than 60. POC glucose 198, random glucose 170. Calcium 8.5, phosphorus 3.2, magnesium 1.7, total bilirubin 0.6. AST 49, ALT 36, alkaline phosphatase 50. Total protein 6. Albumin 3.8, globulin 3.1 and albumin-globulin ratio 1.2. Vitamin B12 is 815, folate 15.1. Urinalysis shows urine leukocyte esterase trace. Urine wbc 5-10. Stool occult blood positive. Endoscopy report shows a single 6 mm mucosal nodule with superficial ulceration and no stigmata of recent bleeding was found in the gastric antrum. Biopsies were taken. IMPRESSION AND PLAN: Gastrointestinal bleed, chronic obstructive lung disease, obstructive sleep apnea syndrome, history of transient ischemic attack, type 2 diabetes mellitus, hypertension, gastroesophageal reflux disease, arthritis, hyperlipidemia, hepatitis C which was treated, obesity, depression. Continue gastrointestinal followup. Continue inhaled bronchodilators, leukotriene inhibitors, continue sequential compression devices to bilateral lower extremities for deep venous thrombosis prophylaxis given the patient's current anemia status, gastric prophylaxis, sleep apnea precautions, head of bed elevated to 45 degrees. The patient on continuous positive airway pressure aid using nasal mask. Monitor hemoglobin and hematocrit closely. This patient was seen and examined with Dr. Ortiz. Discussed assessment and plan as described above. This patient seen and examined with Leandro Elizalde, nurse practitioner. We discussed assessment and plan as described above. Thank you for this consult. We will follow with you. Leandro Elizalde APN Dayan Ortiz MD
[2018-08-27 23:07] VITALS: RESP 20
[2018-08-28] MEDS: Insulin Lispro (humaLOG) LOW Coverage SC SCH ×4 (03:28→16:30)
[2018-08-28] MEDS ORDERED: Pantoprazole 40 mg EC Tab PO SCH (06:00)
[2018-08-28 06:07] VITALS: O2SAT 95
[2018-08-28 07:18] LABS: BASO # 0.01 K/mm3 (0.0-2.0); BASO % 0.2 % (0.0-3.0); EOS # 0.2 (0.0-0.7); EOS % 2.3 % (1.5-5.0); HEMOGLOBIN 9.1 g/dL (12.0-16.0); LYMPH # 1.7 (1.2-3.4); LYMPH % 26.4 % (22.0-35.0); MEAN CELL VOLUME 86.8 fl (80.0-105.0); MEAN CORPUSCULAR HGB CONC 32.3 g/dl (31.0-37.0); MEAN PLATELET VOLUME 9.1 fl (7.0-11.0); MONO # 0.4 (0.1-0.6); MONO % 6.4 % (1.0-6.0); RBC 3.25 10^6/uL (3.5-6.1); RED CELL DISTRIBUTION WIDTH 15.2 % (11.5-14.5); WHITE BLOOD COUNT 6.4 10^3/uL (4.5-11.0)
[2018-08-28 08:01] LABS: ALB/GLOB RATIO 1.3 (1.1-1.8); ALT/SGPT 35 U/L (7-56); AST/SGOT 50 U/L (14-36); BLOOD UREA NITROGEN 8 mg/dL (7-21); CALCIUM 8.8 mg/dL (8.4-10.5); GFR NON-AFRICAN AMERICAN > 60
[2018-08-28] MEDS: Budesonide 0.5 mg/2 ml Inhal Susp UD IH SCH (08:24)
[2018-08-28] MEDS: Arformoterol 15 mcg/2 ml Inh Sol IH SCH (08:24)
--- NOTE | 2018-08-28 11:04 | PN ---
DATE: 08/28/2018 SUBJECTIVE The patient is sitting up in chair, comfortable. She denies any further dark bowel movement. She denies any abdominal pain. PHYSICAL EXAMINATION: VITAL SIGNS: Temperature 97.8, blood pressure 142/69, heart rate 84. HEENT: Sclerae white. Conjunctivae pale. NECK: Supple. CHEST: Lungs clear. HEART: Regular rate and rhythm. ABDOMEN: Soft, nontender. EXTREMITIES: No edema. LABORATORY DATA: Hemoglobin 9.1 which has been stable over the last two days. Chemistries reveal normal electrolytes. IMPRESSION: The patient is a 62-year-old female admitted to the hospital with melena, anemia, history of nonsteroidal use with an upper endoscopy negative for gastrointestinal bleeding. She was found to have a gastric nodule with superficial ulceration. Biopsy results are pending. She did have an endoscopy and colonoscopy in the last year with Dr. Dr. Ríos in [place], [place] which were negative for malignant lesions. RECOMMENDATIONS: 1. No further GI workup planned at this time. 2. Continue iron replacement with Feosol 325 mg three times a day. 3. She is to follow up with her food service cashier, Dr. Ríos upon discharge from the hospital. Bonilla Osorio MD
--- NOTE | 2018-08-28 12:19 | PN ---
DATE: 08/28/2018 PULMONARY PROGRESS NOTE REFERRING PHYSICIAN: Dr. Costa. SUBJECTIVE: The patient is sitting up in chair in room. No acute distress. No overnight events reported. Reports she did not use CPAP machine last night. No headache, rhinitis, cough, shortness of breath, chest pain, abdominal pain, nausea, vomiting, diarrhea, leg pain or leg swelling reported. The patient states that she did not have bowel movement yet today. OBJECTIVE GENERAL: No acute distress. VITAL SIGNS: Blood pressure 142/69, pulse 84, temperature 97.8 and oxygen saturation 95% on nasal cannula. HEENT: Moist mucous membranes. Mallampati score of 4. NECK: Supple. No JVD. LUNGS: Clear bilaterally. CARDIOVASCULAR: S1 and S2. ABDOMEN: Soft and nontender. No distention. EXTREMITIES: No bilateral lower extremity edema. NEUROLOGIC: Awake, alert and verbal. Follows commands. MEDICATIONS: Reviewed. Tylenol 650 mg rectally every 4 hours p.r.n. fever greater than 100.4, Brovana 15 mcg eveyr 12 hours, Pulmicort 0.5 mg every 12 hours, ferrous sulfate 324 mg 3 times a day, Humalog, Accu-checks every 6 hours, Claritin 10 mg daily, Singulair 10 mg at bedtime, Zofran 4 mg IV push every 4 hours p.r.n. and Protonix 40 mg daily. LABORATORY DATA: WBC 6.4, RBC 3.25, hemoglobin 9.1, hematocrit 28.2 and platelets 215. Sodium 140, potassium 3.7, chloride 107, carbon dioxide 26, anion gap 10, BUN 8, creatinine 0.4, GFR greater than 60, random glucose 189, calcium 8.8, total bilirubin 0.5, AST 50, ALT 35, alkaline phosphatase 50, total protein 7.1, albumin 4.0, globulin 3.1 and albumin-globulin ratio 1.3. Stool for C. diff negative. IMPRESSION AND PLAN: Gastrointestinal bleed, chronic obstructive lung disease, asthma, obstructive sleep apnea syndrome, history of transient ischemic attack, type 2 diabetes mellitus, hypertension, gastroesophageal reflux disease, arthritis, hyperlipidemia, hepatitis C treated, obesity, depression. Continue gastrointestinal followup. Continue inhaled bronchodilators, leukotriene inhibitors, sequential compression devices to bilateral lower extremities for deep venous thrombosis prophylaxis, gastric prophylaxis, sleep apnea precautions, head of bed elevated at 45 degrees. Continue to encourage continuous positive airway pressure use at bedtime, sleep apnea precaution. The patient is stable at this time from pulmonary point of view. Continue to monitor hemoglobin and hematocrit. This patient was seen and examined with Dr. Ortiz. Discussed assessment and plan as described above. This patient seen and examined with Leandro Elizalde, nurse practitioner. Discussed assessment and plan as described above. Thank you for this consult and we will follow with you. Leandro Elizalde APN Dayan Ortiz MD
[2018-08-28 12:36] VITALS: BP 137/66; TEMP 97.9
--- NOTE | 2018-08-28 14:13 | CP.PCM.DIS ---
Provider - Provider Date of Admission: 08/26/18 02:03 Attending physician: Carla Costa DO Primary care physician: Dayan Ortiz MD Consults: 08/26/18 06:00 Gastroenterology Consult ROUTINE AM Comment: Consulting Provider: Bonilla Osorio Consulting Physician: Bonilla Osorio Reason for Consult: Gi bleed 08/26/18 13:54 Social Work Referral Routine Comment: d/s plan Physician Instructions: Reason For Exam: eval Time Spent in preparation of Discharge (in minutes): 40 Diagnosis - Discharge Diagnosis (1) GI bleed Status: Suspected (2) Acute blood loss anemia Status: Resolved Hospital Course - Lab Results Lab Results: Micro Results 08/26/18 20:00 Stool C. difficile Antigen & Toxins A,B - Final Most Recent Lab Values WBC 6.4 10^3/uL (4.5-11.0) 08/28/18 07:00 RBC 3.25 10^6/uL (3.5-6.1) L 08/28/18 07:00 Hgb 9.1 g/dL (12.0-16.0) L 08/28/18 07:00 Hct 28.2 % (36.0-48.0) L 08/28/18 07:00 MCV 86.8 fl (80.0-105.0) 08/28/18 07:00 MCH 28.0 pg (25.0-35.0) 08/28/18 07:00 MCHC 32.3 g/dl (31.0-37.0) 08/28/18 07:00 RDW 15.2 % (11.5-14.5) H 08/28/18 07:00 Plt Count 215 10^3/uL (120.0-450.0) 08/28/18 07:00 MPV 9.1 fl (7.0-11.0) 08/28/18 07:00 Neut % (Auto) 64.7 % (50.0-68.0) 08/28/18 07:00 Lymph % (Auto) 26.4 % (22.0-35.0) 08/28/18 07:00 [place] % (Auto) 6.4 % (1.0-6.0) H 08/28/18 07:00 Eos % (Auto) 2.3 % (1.5-5.0) 08/28/18 07:00 Baso % (Auto) 0.2 % (0.0-3.0) 08/28/18 07:00 Lymph # (Auto) 1.7 (1.2-3.4) 08/28/18 07:00 [place] # (Auto) 0.4 (0.1-0.6) 08/28/18 07:00 Eos # (Auto) 0.2 (0.0-0.7) 08/28/18 07:00 Baso # (Auto) 0.01 K/mm3 (0.0-2.0) 08/28/18 07:00 Absolute Neuts (auto) 4.17 (1.4-6.5) 08/28/18 07:00 PT 13.6 SECONDS (9.4-12.5) H 08/26/18 00:49 INR 1.23 08/26/18 00:49 APTT 31.1 Seconds (26.9-38.3) 08/26/18 00:49 Sodium 140 mmol/L (132-148) 08/28/18 07:00 Potassium 3.7 mmol/L (3.6-5.0) 08/28/18 07:00 Chloride 107 mmol/L (98-107) 08/28/18 07:00 Carbon Dioxide 26 mmol/L (21-33) 08/28/18 07:00 Anion Gap 10 (10-20) 08/28/18 07:00 BUN 8 mg/dL (7-21) 08/28/18 07:00 Creatinine 0.4 mg/dl (0.7-1.2) L 08/28/18 07:00 Est GFR ( Amer) > 60 08/28/18 07:00 Est GFR (Non-Af Amer) > 60 08/28/18 07:00 POC Glucose (mg/dL) 198 mg/dL (65-110) H 08/27/18 08:08 Random Glucose 189 mg/dL (70-110) H 08/28/18 07:00 Hemoglobin A1c 8.0 % (4.2-6.5) H 08/26/18 00:49 Calcium 8.8 mg/dL (8.4-10.5) 08/28/18 07:00 Phosphorus 3.2 mg/dL (2.5-4.5) 08/27/18 06:15 Magnesium 1.7 mg/dL (1.7-2.2) 08/27/18 06:15 Iron 64 ug/dL (45-180) 08/26/18 00:49 TIBC 357 ug/dL (265-497) 08/26/18 00:49 % Saturation 18 % (20-55) L 08/26/18 00:49 Ferritin 166.0 ng/mL 08/26/18 00:49 Total Bilirubin 0.5 mg/dL (0.2-1.3) 08/28/18 07:00 AST 50 U/L (14-36) H 08/28/18 07:00 ALT 35 U/L (7-56) 08/28/18 07:00 Alkaline Phosphatase 50 U/L (38-126) 08/28/18 07:00 Lactate Dehydrogenase 429 U/L (333-699) 08/26/18 00:49 Total Creatine Kinase 132 U/L (35-230) 08/26/18 00:49 Troponin I < 0.01 ng/mL 08/26/18 00:49 Total Protein 7.1 g/dL (5.8-8.3) 08/28/18 07:00 Albumin 4.0 g/dL (3.0-4.8) 08/28/18 07:00 Globulin 3.1 gm/dL 08/28/18 07:00 Albumin/Globulin Ratio 1.3 (1.1-1.8) 08/28/18 07:00 Amylase 39 U/L (35-125) 08/26/18 00:49 Lipase 65 U/L (23-300) 08/26/18 00:49 Vitamin B12 815 pg/mL (239-931) 08/26/18 12:10 Folate 15.1 ng/mL 08/26/18 12:10 Urine Color Yellow (YELLOW) 08/27/18 01:20 Urine Appearance Clear (CLEAR) 08/27/18 01:20 Urine pH 6.0 (4.7-8.0) 08/27/18 01:20 Ur Specific [place] 1.025 (1.005-1.035) 08/27/18 01:20 Urine Protein Negative mg/dL (<30 mg/dL) 08/27/18 01:20 Urine Glucose (UA) Negative mg/dL (NEGATIVE) 08/27/18 01:20 Urine Ketones Negative mg/dL (NEGATIVE) 08/27/18 01:20 Urine Blood Negative (NEGATIVE) 08/27/18 01:20 Urine Nitrate Negative (NEGATIVE) 08/27/18 01:20 Urine Bilirubin Negative (NEGATIVE) 08/27/18 01:20 Urine Urobilinogen 0.2 E.U./dL (<1 E.U./dL) 08/27/18 01:20 Ur Leukocyte Esterase Trace Yen/uL (NEGATIVE) H 08/27/18 01:20 Urine RBC 0 - 2 /hpf (0-2) 08/27/18 01:20 Urine WBC 5 - 10 /hpf (0-6) H 08/27/18 01:20 Ur Epithelial Cells 4 - 5 /hpf (0-5) 08/27/18 01:20 Urine Bacteria Few /hpf (NONE) 08/27/18 01:20 Stool Occult Blood Positive (NEGATIVE) H 08/26/18 20:00 Blood Type A POSITIVE 08/26/18 01:00 Antibody Screen Negative 08/26/18 01:00 Crossmatch See Detail 08/26/18 01:00 BBK History Checked Patient has bt 08/26/18 01:00 - Hospital Course Hospital Course: Iggy Braden DO, PGY-1 Hospitalist Discharge Summary for Dr. Annette Costa On admission: Patient is a 62 year old female with PMH of DM2, TIA, arthritis, HTN, HLD, GERD, and Hep C presented [place] [facility] with a chief complaint of four dark loose bowel movements for 3 days prior to her presentation. She denied any history of prior GI bleeds. She stated she is complaint with her home meds but does take celecoxib daily. She also admitted to dizziness, fatigue, and nausea on presentation but denied fevers, chills, hematemesis, chest pain, shortness of breath, abdominal pain, or recent sick contacts. Hospitalization: Patient received 1 u of PRBCs in the ED and then a second unit after being transferred to telemetry floor. Her H/H were repeated about four hours after the last transfusion and her H/H subsequently improved. She was evaluated by GI, Dr. Osorio, who performed EGD on her second day of admission. EGD found one lesion without stigmata of recent bleeding but was biopsied for further analysis. She was subsequently advanced to a regular diet and has been tolerating it well without nausea/vomiting. Since her admission, her melanotic stools have resolved. Per review of prior records, patient had cardiac cath in 09/2016 with no stent placements. Family is unsure why patient is on ASA/plavix. A message to patient's primary medical doctor, Dr. Sarah Peña, was left informing of the plan to stop ASA/plavix for 2 weeks with call back number. Discharge plan was discussed with patient and family with follow up instructions. All questions were answered. Patient seen, examined, and discharge plan discussed with my attending Dr. Annette Braden D.O. IM Resident PGY-1 Discharge Exam - Head Exam Head Exam: ATRAUMATIC, NORMOCEPHALIC - Eye Exam Eye Exam: EOMI, PERRL - ENT Exam ENT Exam: Mucous Membranes Moist - Neck Exam Neck exam: Full Rom, Normal Inspection - Respiratory Exam Respiratory Exam: Clear to PA & Lateral, NORMAL BREATHING PATTERN, UNREMARKABLE. absent: Accessory Muscle Use, Rales, Rhonchi, Wheezes, Respiratory Distress - Cardiovascular Exam Cardiovascular Exam: REGULAR RHYTHM, RRR, +S1, +S2. absent: Diastolic murmur, Gallop, Rubs, Systolic Murmur - GI/Abdominal Exam GI & Abdominal Exam: Normal Bowel Sounds, Soft, Unremarkable. absent: Tenderness - Extremities Exam Extremities exam: full ROM, normal inspection - Back Exam Back exam: NORMAL INSPECTION - Neurological Exam Neurological exam: Alert, Oriented x3 - Psychiatric Exam Psychiatric exam: Normal Affect, Normal Mood - Skin Skin Exam: Dry, Intact, Warm Discharge Plan - Discharge Medications Prescriptions: Pantoprazole Sodium [Protonix] 40 mg PO DAILY #14 tablet.dr - Follow Up Plan Condition: GOOD Disposition: HOME/ ROUTINE Instructions: Anemia Caused by Low Iron, Adult (DC), Gastrointestinal Bleeding (DC), Hyperglycemia, Adult (DC) Additional Instructions: Please follow up with your primary medical doctor within 3-5 days of discharge, Please have your blood levels monitored. Please let your primary care doctor know that your ASA and Plavix has been held temporarily, please see your doctor to restart these medications. Please follow up with Dr. Osorio, the stomach doctor who performed your endoscopy, on September 11 as we discussed. Please follow Dr. Osorio's instructions to avoid ibuprofen, naproxen, celebrex or other non-steroidal anti-inflammatory drugs for the next 2 weeks. Please stop taking aspirin and plavix for the next 2 weeks. You were found to have fatty liver on the CAT scan performed here. Please discuss this with Dr. Osorio when you follow up with him. Please follow up with your Dr. Ortiz within one week of discharge. If your symptoms return or worsen, please return to nearest ED. Referrals: Sarah De La Rosa MD [Staff Provider] - Bonilla Osorio MD [Staff Provider] - Dayan Ortiz MD [Primary Care Provider] -
[2018-08-28 17:01] VITALS: PULSE 95
== END 2018-08-28 17:33 | disposition home or self-care (01) | DRG 174 ==
LOC: ED 23:58 → ERH 08-26 02:03 → 2RNO 08-26 13:01
PROVIDERS: ADMIT Internal Medicine; ATTEND Hospitalist
PROC: 30233N1 Transfusion of Nonautologous Red Blood Cells into Peripheral Vein, Percutaneous Approach (ICD-10-PCS; 2018-08-26)
PROC: 0DB68ZX Excision of Stomach, Via Natural or Artificial Opening Endoscopic, Diagnostic (ICD-10-PCS; principal; 2018-08-27 09:30)
DX: K92.1 Melena (principal); J44.9 Chronic obstructive pulmonary disease, unspecified; D62 Acute posthemorrhagic anemia; K25.9 Gastric ulcer, unspecified as acute or chronic, without hemorrhage or perforation; E11.9 Type 2 diabetes mellitus without complications; E78.5 Hyperlipidemia, unspecified; F32.9 Major depressive disorder, single episode, unspecified; G47.33 Obstructive sleep apnea (adult) (pediatric); I10 Essential (primary) hypertension; K21.9 Gastro-esophageal reflux disease without esophagitis; M19.90 Unspecified osteoarthritis, unspecified site; H91.90 Unspecified hearing loss, unspecified ear; E66.9 Obesity, unspecified; Z68.32 Body mass index [BMI] 32.0-32.9, adult; Z97.4 Presence of external hearing-aid; Z79.4 Long term (current) use of insulin; Z86.73 Personal history of transient ischemic attack (TIA), and cerebral infarction without residual deficits; Z79.82 Long term (current) use of aspirin; Z98.84 Bariatric surgery status; Z86.19 Personal history of other infectious and parasitic diseases; Z88.0 Allergy status to penicillin

== ENCOUNTER 2018-11-29 22:25 | Observation (INO) | payer MEDICAID ==
[2018-11-29] MEDS ORDERED: Morphine 2 mg/ml ISec IVP STA (22:48)
[2018-11-29 23:22] LABS: BASO # 0.02 K/mm3 (0.0-2.0); BASO % 0.2 % (0.0-3.0); EOS # 0.4 (0.0-0.7); EOS % 4.2 % (1.5-5.0); HEMOGLOBIN 10.6 g/dL (12.0-16.0); LYMPH # 3.2 (1.2-3.4); LYMPH % 36.1 % (22.0-35.0); MEAN CORPUSCULAR HEMOGLOBIN 26.3 pg (25.0-35.0); MEAN CORPUSCULAR HGB CONC 32.5 g/dl (31.0-37.0); MEAN PLATELET VOLUME 9.6 fl (7.0-11.0); MONO # 0.4 (0.1-0.6); RBC 4.03 10^6/uL (3.5-6.1); RED CELL DISTRIBUTION WIDTH 13.9 % (11.5-14.5); WHITE BLOOD COUNT 8.8 10^3/uL (4.5-11.0)
[2018-11-29 23:26] LABS: MEAN CELL VOLUME 80.9 fl (80.0-105.0)
[2018-11-29 23:28] LABS: INR 1.18; PARTIAL THROMBOPLASTIN TIME 31.4 Seconds (26.9-38.3); PROTHROMBIN TIME 13.1 SECONDS (9.4-12.5)
[2018-11-29 23:32] LABS: ALB/GLOB RATIO 1.2 (1.1-1.8); ALBUMIN 4.2 g/dL (3.0-4.8); ALT/SGPT 36 U/L (7-56); AST/SGOT 36 U/L (14-36); BLOOD UREA NITROGEN 21 mg/dL (7-21); CALCIUM 9.6 mg/dL (8.4-10.5); GFR NON-AFRICAN AMERICAN > 60
[2018-11-29 23:47] LABS: TROPONIN I < 0.01 ng/mL
--- NOTE | 2018-11-30 00:02 | ED PDOC ---
Arrival/HPI - General Historian: Patient - History of Present Illness Narrative History of Present Illness (Text): 11/29/18 23:55 CC: headache and chest pain HPI: Patient is a 62 year old female with past medical history of TIA, T2DM, HTN, HLD, GERD, arthritis, obesity, hepatitis C (treated), depression presenting with chief complaint headaches and chest pain. Patient states that her headache and chest pain started soon after she opened fast for her yazdanism month of . Patient states initially she started feeling severe chest pressure that radiates into her head and back. Patient denies pain radiating into her arms or neck, diaphoresis, nausea/vomiting. Patient states she took no medications at home for the pain. Patient was recently discharged for gastrointestinal hemorrhage and was told to be dc'ed from aspirin. Patient states she has to followup with her learning and development officer Dr. Mendoza to restart her aspirin due to her history of TIA. Time/Duration: 4-6 hours Symptom Onset: Sudden Quality: Pressure Activities at Onset: Rest Context: Walking <Evelin Mckeon - Last Filed: 11/29/18 23:54> <Rufino Zamora - Last Filed: 11/30/18 03:16> - General Chief Complaint: Chest Pain Time Seen by Provider: 11/29/18 22:27 Past Medical History - Infectious Disease Hx of Infectious Diseases: None - Tetanus Immunization Tetanus Immunization: Unknown - Cardiac Hx Cardiac Disorders: Yes Hx Hypertension: Yes - Pulmonary Hx Respiratory Disorders: Yes Hx Asthma: Yes - Neurological Hx Neurological Disorder: Yes Hx Dizziness: Yes Hx Transient Ischemic Attacks (TIA): Yes - HEENT Hx HEENT Disorder: Yes Hx Cataracts: Yes (bilateral surgery) Hx Deafness: Yes (hearing aids) - Renal Hx Renal Disorder: No - Endocrine/Metabolic Hx Endocrine Disorders: Yes Hx Diabetes Mellitus Type 2: Yes - Hematological/Oncological Hx Blood Disorders: Yes Hx Hepatitis C: Yes - Integumentary Hx Dermatological Disorder: No - Musculoskeletal/Rheumatological Hx Musculoskeletal Disorders: Yes Hx Falls: Yes - Gastrointestinal Hx Gastrointestinal Disorders: Yes Hx Gastroesophageal Reflux: Yes (occasionally with spicy foods) - Genitourinary/Gynecological Hx Genitourinary Disorders: No - Psychiatric Hx Psychophysiologic Disorder: Yes Hx Depression: Yes Hx Emotional Abuse: No Hx Physical Abuse: No Hx Substance Use: No - Surgical History Hx Cardiac Catheterization: Yes Hx Cholecystectomy: Yes Hx Gastric Bypass Surgery: Yes Hx Hysterectomy: Yes Other/Comment: hernia surgery; surgery of her nose - Anesthesia Hx Anesthesia Reactions: No Hx Malignant Hyperthermia: No - Suicidal Assessment Feels Threatened In Home Enviroment: No <Evelin Mckeon - Last Filed: 11/29/18 23:54> Family/Social History Family/Social History: No Known Family HX Smoking Status: Never Smoked Hx Alcohol Use: No Hx Substance Use: No Hx Substance Use Treatment: No <MikeEvelin - Last Filed: 11/29/18 23:54> Allergies/Home Meds <Bridger Mckeonamanda - Last Filed: 11/29/18 23:54> <Rufino Zamora - Last Filed: 11/30/18 03:16> Allergies/Adverse Reactions: Allergies Penicillins Allergy (Verified 11/29/18 22:33) ANAPHYLAXIS Home Medications: Home Meds Medication Instructions Recorded Confirmed Ferrous Sulfate [Feosol] 325 mg PO BID 08/13/16 11/30/18 Glimepiride [Amaryl] 1 mg PO DAILY 08/13/16 11/30/18 Multivitamin [Daily Divina] 1 tab PO DAILY 09/18/16 11/30/18 Cetirizine HCl [All Day Allergy 10 mg PO BID 11/10/16 11/30/18 Relief] Albuterol Sulfate [Ventolin Hfa] 1 puff IH Q6H PRN 08/26/18 11/30/18 Cholecalciferol (Vitamin D3) 50,000 unit PO QWK 08/26/18 11/30/18 [Vitamin D3] Insulin Glargine,Hum.rec.anlog 30 unit SQ AMHS 08/26/18 11/30/18 [Basaglar Kwikpen U-100] Insulin Glargine,Hum.rec.anlog 34 unit SQ QPM 08/26/18 11/30/18 [Basaglar Kwikpen U-100] Losartan/Hydrochlorothiazide 1 each PO DAILY 08/26/18 11/30/18 [Losartan-Hctz 100-25 mg Tab] Gabapentin [Neurontin] 600 mg PO DAILY 11/30/18 11/30/18 Review of Systems - Review of Systems Constitutional: Normal. absent: Fatigue, Weight Change, Fevers Eyes: Normal. absent: Vision Changes, Photophobia ENT: Normal. absent: Hearing Changes, Tinnitus Respiratory: SOB. absent: Normal, Cough, Sputum Cardiovascular: Chest Pain. absent: Palpitations, Edema Gastrointestinal: Normal. absent: Abdominal Pain, Stool Changes, Constipation, Diarrhea, Nausea Genitourinary Female: Normal. absent: Dysuria, Frequency, Hematuria Musculoskeletal: Normal. absent: Arthralgias, Back Pain Skin: Normal. absent: Rash, Pruritis Neurological: Normal. absent: Headache, Dizziness, Focal Weakness, Facial Droop Endocrine: Normal. absent: Diaphoresis, Polyuria Psychiatric: Normal. absent: Anxiety, Depression <Mike,Madaser - Last Filed: 11/29/18 23:54> Physical Exam Vital Signs Reviewed: Yes Vital Signs Temp Pulse Resp BP Pulse Ox 11/29/18 22:41 98.5 F 105 H 18 131/76 97 Temperature: Afebrile Blood Pressure: Normal Pulse: Tachycardic Respiratory Rate: Normal Appearance: Positive for: Well-Appearing, Non-Toxic, Comfortable Pain Distress: Moderate Mental Status: Positive for: Alert and Oriented X 3 - Systems Exam Head: Present: Atraumatic, Normocephalic Pupils: Present: PERRL Extroacular Muscles: Present: EOMI Mouth: Present: Dry Neck: Present: Normal Range of Motion. No: Meningeal Signs, JVD Respiratory/Chest: Present: Clear to Auscultation, Good Air Exchange. No: Respiratory Distress, Accessory Muscle Use, Wheezes Cardiovascular: Present: Normal S1, S2, Tachycardic Abdomen: Present: Normal Bowel Sounds. No: Tenderness, Distention, Peritoneal Signs Upper Extremity: Present: Normal Inspection. No: Cyanosis, Edema Lower Extremity: Present: Normal Inspection. No: Edema Skin: Present: Warm, Dry, Normal Color. No: Rashes Psychiatric: Present: Alert, Oriented x 3, Normal Insight, Normal Concentration <Mike,Madaser - Last Filed: 11/29/18 23:54> Vital Signs Temp Pulse Resp BP Pulse Ox 11/29/18 22:41 98.5 F 105 H 18 131/76 97 <Rufino Zamora - Last Filed: 11/30/18 03:16> Medical Decision Making ED Course and Treatment: 11/30/18 00:17 Impression Patient is a 62 year old female with past medical history of TIA, T2DM, HTN, HLD, GERD, arthritis, obesity, hepatitis C (treated), depression presenting with chief complaint headaches and chest pain. Plan -CBC -CMP -EKG (sinus tachy) -Aspirin -Morphine -CXR Prior Visits All prior documentation and lab work reviewed prior to this evaluation Progress Notes Patient re-evaluated after morphine dosage Pain well controlled Lab work resulted with normal troponins Patient chest pain improved Discussed with hospitalist team including Dr. Rust who accepted the patient to his service Re-evaluation Time: 00:22 Reassessment Condition: Re-examined, Improving,but remains with symptoms - Lab Interpretations Lab Results: PT 13.1 SECONDS (9.4-12.5) H 11/29/18 22:40 INR 1.18 11/29/18 22:40 APTT 31.4 Seconds (26.9-38.3) 11/29/18 22:40 Troponin I < 0.01 ng/mL 11/29/18 22:40 Total Bilirubin 0.4 mg/dL (0.2-1.3) 11/29/18 22:40 AST 36 U/L (14-36) D 11/29/18 22:40 ALT 36 U/L (7-56) 11/29/18 22:40 Alkaline Phosphatase 56 U/L (38-126) 11/29/18 22:40 Total Protein 7.7 g/dL (5.8-8.3) 11/29/18 22:40 Albumin 4.2 g/dL (3.0-4.8) 11/29/18 22:40 Globulin 3.5 gm/dL 11/29/18 22:40 Albumin/Globulin Ratio 1.2 (1.1-1.8) 11/29/18 22:40 I have reviewed the lab results: Yes Interpretation: No sign. chg./baseline - RAD Interpretation Radiology Orders: 11/29/18 22:57 CHEST PORTABLE [RAD] Stat - Medication Orders Current Medication Orders: Discontinued Medications Aspirin (Aspirin) 325 mg PO STAT STA Stop: 11/29/18 22:50 Last Admin: 11/29/18 23:24 Dose: 325 mg Morphine Sulfate (Morphine) 2 mg IVP STAT STA Stop: 11/29/18 22:49 Last Admin: 11/29/18 23:24 Dose: 2 mg MAR Pain Assessment Document 11/29/18 23:24 EB (Rec: 11/29/18 23:24 [id number] Pain Reassessment Is this a pain reassessment? No Sleep Is patient sleeping during reassessment? No Presence of Pain Presence of Pain Yes Pain Scale Used Protocol: PSCALES Pain Scale Used Numeric Location Pain Location Body Extractions Technician Neck Description Intensity of Pain at present 7 IVP Administration Document 11/29/18 23:24 (Rec: 11/29/18 23:24 [id number]) Charges for Administration # of IVP Administrations 1 <Evelin Mckeon - Last Filed: 11/29/18 23:54> ED Course and Treatment: Impression: Pt seen and evaluated with medical apparatus model maker. Aware and agree with HPI, clinical findings, plan, and management. Pt, whose past medical history includes TIA, diabetes, hypertension, hyperlipidemia, GERD, obesity, hepatitis C, and depression, presented for headache and chest pain. Plan: -- EKG -- Chest X-ray -- Labs, troponin, ABG -- Aspirin -- Morphine -- Reassess and disposition - Lab Interpretations Lab Results: PT 13.1 SECONDS (9.4-12.5) H 11/29/18 22:40 INR 1.18 11/29/18 22:40 APTT 31.4 Seconds (26.9-38.3) 11/29/18 22:40 Troponin I < 0.01 ng/mL 11/29/18 22:40 Total Bilirubin 0.4 mg/dL (0.2-1.3) 11/29/18 22:40 AST 36 U/L (14-36) D 11/29/18 22:40 ALT 36 U/L (7-56) 11/29/18 22:40 Alkaline Phosphatase 56 U/L (38-126) 11/29/18 22:40 Total Protein 7.7 g/dL (5.8-8.3) 11/29/18 22:40 Albumin 4.2 g/dL (3.0-4.8) 11/29/18 22:40 Globulin 3.5 gm/dL 11/29/18 22:40 Albumin/Globulin Ratio 1.2 (1.1-1.8) 11/29/18 22:40 - RAD Interpretation Radiology Orders: 11/29/18 22:57 CHEST PORTABLE [RAD] Stat - Medication Orders Current Medication Orders: Discontinued Medications Aspirin (Aspirin) 325 mg PO STAT STA Stop: 11/29/18 22:50 Last Admin: 11/29/18 23:24 Dose: 325 mg Morphine Sulfate (Morphine) 2 mg IVP STAT STA Stop: 11/29/18 22:49 Last Admin: 11/29/18 23:24 Dose: 2 mg MAR Pain Assessment Document 11/29/18 23:24 (Rec: 11/29/18 23:24 [id number]) Pain Reassessment Is this a pain reassessment? No Sleep Is patient sleeping during reassessment? No Presence of Pain Presence of Pain Yes Pain Scale Used Protocol: PSCALES Pain Scale Used Numeric Location Pain Location Body Extractions Technician Neck Description Intensity of Pain at present 7 IVP Administration Document 11/29/18 23:24 (Rec: 11/29/18 23:24 [id number]) Charges for Administration # of IVP Administrations 1 <Rufino Zamora - Last Filed: 11/30/18 03:16> - PA / CUSTOMS ENTRY WRITER / Resident Statement BERRY has reviewed & agrees with the documentation as recorded. / has examined the patient and agrees with the treatment plan. <Rufino Zamora - Last Filed: 11/30/18 03:16> Disposition/Present on Arrival - Present on Arrival Any Indicators Present on Arrival: Yes History of DVT/PE: No History of Uncontrolled Diabetes: Yes Urinary Catheter: No History of Decub. Ulcer: No History Surgical Site Infection Following: None - Disposition Have Diagnosis and Disposition been Completed?: Yes Disposition Time: 00:23 Patient Plan: Observation <Evelin Mckeon - Last Filed: 11/29/18 23:54> <Rufino Zamora - Last Filed: 11/30/18 03:16> - Disposition Diagnosis: Chest pain at rest, Headache Disposition: HOSPITALIZED Patient Problems: Current Active Problems Problem Status Onset Chest pain at rest Acute Headache Acute Condition: GOOD
--- NOTE | 2018-11-30 00:36 | CP.PCM.HP ---
<Charlie Ann - Last Filed: 11/30/18 01:24> History of Present Illness - History of Present Illness History of Present Illness: Charlie Ann, PGY1 H&P for Dr. Joe cc: "cp and headache" Patient is a 63 year old English/[place] Speaking female with past medical history of TIAx2, T2DM (insulin dependent), HTN, HLD, GERD, Non-obstructive CAD (cath 08/2016; no stent placement), arthritis, obesity (BMI 30), hepatitis C (treated), depression presenting with chief complaint headaches and chest pain. Patient states that her headache and chest pain started after dinner. Headache is bilateral and wraps around like a band. Headache is not exacerbated by bright lights or loud noise. No tongue biting, seizure activity, weakness, or facial droop. She states initially she started feeling pressure-like chest pressure without radiation to the arms, neck, or back. Patient states she took no medications at home for the pain. Patient was recently discharged for GI bleed (3 months ago) and was told to be wy'ed from aspirin. At that time she had an EGD done which showed superficial stomach ulcer but no evidence of bleeding/malignancy. She also had an abnormal stress test on 08/2016 which led to a cardiac cath, showing non-obstructive CAD (55-60% stenosis). She states she has to followup with her front office coordinator Dr. Mendoza to restart her aspirin due to her history of TIA. In regards to functional tolerance, patient walks about 5-6 blocks before getting shortness of breath. Pain was improved upon arrival to ED. Denies sob, n/v/d, fever, chills. A full 12 point ROS was conducted and unremarkable except as stated above. PMD: Dr. Peña Cardio: Dr. Mendoza Pharmacy: [facility] ([phone]) PMHx: TIAx2, T2DM (insulin dependent), HTN, HLD, GERD, Non-obstructive CAD (cath 08/2016; no stent placement), arthritis, obesity (BMI 30), hepatitis C (treated), depression PSH: hernia repair, cholecystectomy, hysterectomy, nasal surgery SHx: denies tobacco, ETOH or illicit drug use. Allergies: penicillins Meds: see SEP. FHx: non-contributory Present on Admission - Present on Admission Any Indicators Present on Admission: No Review of Systems - Review of Systems All systems: reviewed and no additional remarkable complaints except (as per HPI) Past Patient History - Infectious Disease Hx of Infectious Diseases: None - Tetanus Immunizations Tetanus Immunization: Unknown - Past Social History Smoking Status: Never Smoked - CARDIAC Hx Cardiac Disorders: Yes Hx Hypertension: Yes - PULMONARY Hx Respiratory Disorders: Yes Hx Asthma: Yes - NEUROLOGICAL Hx Neurological Disorder: Yes Hx Dizziness: Yes Hx Transient Ischemic Attacks (TIA): Yes - HEENT Hx HEENT Problems: Yes Hx Cataracts: Yes (bilateral surgery) Hx Deafness: Yes (hearing aids) - RENAL Hx Chronic Kidney Disease: No - ENDOCRINE/METABOLIC Hx Endocrine Disorders: Yes Hx Diabetes Mellitus Type 2: Yes - HEMATOLOGICAL/ONCOLOGICAL Hx Blood Disorders: Yes Hx Hepatitis C: Yes - INTEGUMENTARY Hx Dermatological Problems: No - MUSCULOSKELETAL/RHEUMATOLOGICAL Hx Musculoskeletal Disorders: Yes Hx Falls: Yes - GASTROINTESTINAL Hx Gastrointestinal Disorders: Yes Hx Gastroesophageal Reflux: Yes (occasionally with spicy foods) - GENITOURINARY/GYNECOLOGICAL Hx Genitourinary Disorders: No - PSYCHIATRIC Hx Psychophysiologic Disorder: Yes Hx Depression: Yes Hx Emotional Abuse: No Hx Physical Abuse: No Hx Substance Use: No - SURGICAL HISTORY Hx Cardiac Catheterization: Yes Hx Cholecystectomy: Yes Hx Gastric Bypass Surgery: Yes Hx Hysterectomy: Yes Other/Comment: hernia surgery; surgery of her nose - ANESTHESIA Hx Anesthesia Reactions: No Hx Malignant Hyperthermia: No Meds Allergies/Adverse Reactions: Allergies Allergy/AdvReac Type Severity Reaction Status Date / Time Penicillins Allergy ANAPHYLAXIS Verified 11/29/18 22:33 Physical Exam - Constitutional Appears: No Acute Distress - Head Exam Head Exam: ATRAUMATIC, NORMAL INSPECTION, NORMOCEPHALIC - Eye Exam Eye Exam: EOMI, Normal appearance Pupil Exam: NORMAL ACCOMODATION - ENT Exam ENT Exam: Mucous Membranes Moist - Neck Exam Neck exam: Positive for: Normal Inspection. Negative for: Lymphadenopathy - Respiratory Exam Respiratory Exam: Chest Wall Tenderness, Clear to Auscultation Bilateral, NORMAL BREATHING PATTERN. absent: Accessory Muscle Use, Rales, Rhonchi, Wheezes - Cardiovascular Exam Cardiovascular Exam: +S1, +S2 Additional comments: Mild, reproducible chest pain at the sternum. - GI/Abdominal Exam GI & Abdominal Exam: Soft. absent: Firm, Guarding, Rebound, Rigid, Tenderness - Extremities Exam Extremities exam: Positive for: normal capillary refill, normal inspection, p edal pulses present - Back Exam Back exam: NORMAL INSPECTION - Neurological Exam Neurological exam: Alert, CN II-XII Intact, Oriented x3 Additional comments: No focal neurologic deficits. Strength is 5/5 in all UE and LE. Sensation to all distal extremities intact. - Psychiatric Exam Psychiatric exam: Normal Affect, Normal Mood - Skin Skin Exam: Dry, Intact, Normal Color, Warm Results - Vital Signs Recent Vital Signs: Last Vital Signs Temp 98.5 F 11/29/18 22:41 Pulse 105 H 11/29/18 22:41 Resp 18 11/29/18 22:41 BP 131/76 11/29/18 22:41 Pulse Ox 97 11/29/18 22:41 - Labs Result Diagrams: 11/29/18 22:40 11/29/18 22:40 Labs: Laboratory Results - last 24 hr 11/29/18 11/29/18 11/29/18 22:40 22:40 22:40 WBC 8.8 D RBC 4.03 Hgb 10.6 L Hct 32.6 L MCV 80.9 D MCH 26.3 MCHC 32.5 RDW 13.9 Plt Count 258 MPV 9.6 Neut % (Auto) 54.5 Lymph % (Auto) 36.1 H [place] % (Auto) 5.0 Eos % (Auto) 4.2 Baso % (Auto) 0.2 Lymph # (Auto) 3.2 [place] # (Auto) 0.4 Eos # (Auto) 0.4 Baso # (Auto) 0.02 Absolute Neuts (auto) 4.82 PT 13.1 H INR 1.18 APTT 31.4 Sodium 139 Potassium 4.0 Chloride 99 Carbon Dioxide 27 Anion Gap 16 BUN 21 Creatinine 0.6 L Est GFR ( Amer) > 60 Est GFR (Non-Af Amer) > 60 Random Glucose 243 H Calcium 9.6 Total Bilirubin 0.4 AST 36 D ALT 36 Alkaline Phosphatase 56 Troponin I < 0.01 Total Protein 7.7 Albumin 4.2 Globulin 3.5 Albumin/Globulin Ratio 1.2 Assessment & Plan - Assessment and Plan (Free Text) Assessment: Patient is a 63 year old English/[place] Speaking female with past medical history of TIAx2, T2DM (insulin dependent), HTN, HLD, GERD, Non-obstructive CAD (cath 08/2016; no stent placement), arthritis, obesity (BMI 30), hepatitis C (treated), depression presenting with chief complaint headaches and chest pain. Patient will be admitted for chest pain - r/o ACS. Plan: Chest Pain - r/o ACS - Although per history, cp is atypical and reproducible, patient has significant risk factors including HTN, DM, Obesity, TIA - Administered ASA 325mg in ED. Given recent GI bleed (3 months ago) patient was told to be discharged off aspirin. Will require cardiac clearance in regards to resuming aspirin medication. - Morphine 2mg IVP q6 prn - Nitroglycerin patch daily - PTX 40mg PO BID - trop neg x1; f/u serial trops - TSH, Hgb A1c, Lipid panel - Cardio on consult (Dr. Curtis) - EKG in ED: sinus tachy, HR 103. No acute ST or T wave changes. Tension Headache - Grossly normal neurological exam - pain control - will monitor and reassess appropriately Recent GI Bleed (3 months ago) - Hold aspirin 81mg daily for now - Hx recent EGD showing superficial stomach ulcer Anemia - c/w home med feosol - Hgb stable at this time, 10.6 (baseline) - monitor and transfuse as needed DM II - ISS (med) - Accuchecks ACHS - resume home med gabapentin 600mg daily for diabetic neuropathy GERD - PTX 40mg PO BID; increased home med frequency 40mg daily HTN - c/w home med Losartan/HCTZ daily HLD - c/w pravastatin home med Asthma - c/w home med ventolin q6 prn ppx: - ptx 40mg PO BID - scd Diet: HHD (CCD) Dispo: Will monitor patient on tele for chest pain - r/o ACS given cardiac risk factors. Case was discussed and reviewed with Attending Physician, Dr. Joe. <Laura Joe - Last Filed: 11/30/18 05:37> Results - Vital Signs Recent Vital Signs: Last Vital Signs Temp 98.5 F 11/29/18 22:41 Pulse 96 H 11/30/18 03:25 Resp 13 11/30/18 03:25 BP 118/55 L 11/30/18 03:25 Pulse Ox 95 11/30/18 03:25 - Labs Result Diagrams: 11/29/18 22:40 11/29/18 22:40 Labs: Laboratory Results - last 24 hr 11/29/18 11/29/18 11/29/18 22:40 22:40 22:40 WBC 8.8 D RBC 4.03 Hgb 10.6 L Hct 32.6 L MCV 80.9 D MCH 26.3 MCHC 32.5 RDW 13.9 Plt Count 258 MPV 9.6 Neut % (Auto) 54.5 Lymph % (Auto) 36.1 H [place] % (Auto) 5.0 Eos % (Auto) 4.2 Baso % (Auto) 0.2 Lymph # (Auto) 3.2 [place] # (Auto) 0.4 Eos # (Auto) 0.4 Baso # (Auto) 0.02 Absolute Neuts (auto) 4.82 PT 13.1 H INR 1.18 APTT 31.4 Sodium 139 Potassium 4.0 Chloride 99 Carbon Dioxide 27 Anion Gap 16 BUN 21 Creatinine 0.6 L Est GFR ( Amer) > 60 Est GFR (Non-Af Amer) > 60 Random Glucose 243 H Calcium 9.6 Total Bilirubin 0.4 AST 36 D ALT 36 Alkaline Phosphatase 56 Troponin I < 0.01 Total Protein 7.7 Albumin 4.2 Globulin 3.5 Albumin/Globulin Ratio 1.2 Triglycerides Cholesterol LDL Cholesterol Direct HDL Cholesterol TSH 3rd Generation 11/29/18 11/29/18 22:40 22:40 WBC RBC Hgb Hct MCV MCH MCHC RDW Plt Count MPV Neut % (Auto) Lymph % (Auto) [place] % (Auto) Eos % (Auto) Baso % (Auto) Lymph # (Auto) [place] # (Auto) Eos # (Auto) Baso # (Auto) Absolute Neuts (auto) PT INR APTT Sodium Potassium Chloride Carbon Dioxide Anion Gap BUN Creatinine Est GFR ( Amer) Est GFR (Non-Af Amer) Random Glucose Calcium Total Bilirubin AST ALT Alkaline Phosphatase Troponin I Total Protein Albumin Globulin Albumin/Globulin Ratio Triglycerides 274 H Cholesterol 165 LDL Cholesterol Direct 81 HDL Cholesterol 31 TSH 3rd Generation 2.15 Attending/Attestation - Attestation I have personally seen and examined this patient.: Yes I have fully participated in the care of the patient.: Yes I have reviewed all pertinent clinical information: Yes Notes (Text): 11/30/18 05:36 Seen and examined. Discussed with resident. A&P as above.
[2018-11-30] MEDS ORDERED: Morphine 2 mg/ml ISec IVP PRN (01:15)
[2018-11-30] MEDS ORDERED: Albuterol HFA 90 mcg/actuation (8 g) IH PRN (01:23)
[2018-11-30 01:35] LABS: HDL CHOLESTEROL 31 mg/dL (29-60)
[2018-11-30 01:46] LABS: LDL CHOLESTEROL 81 mg/dL (0-129)
[2018-11-30] MEDS ORDERED: Albuterol 0.083% Inhal Sol (2.5 mg/3 mL) UD IH PRN (02:43)
[2018-11-30] MEDS: Nitroglycerin 0.2 mg/hr Top Patch TD SCH ×2 (03:26→09:13)
[2018-11-30] MEDS ORDERED: Pantoprazole 40 mg EC Tab PO SCH (06:00)
[2018-11-30] MEDS: Insulin Lispro (humaLOG) MEDIUM Coverage SC SCH ×2 (09:14→12:23)
[2018-11-30] MEDS ORDERED: Non Formulary Medication (Losartan/Hydrochlorothiazide [Losartan-Hctz 100-25 Mg Tab] 1 EAC PO SCH (10:00)
--- NOTE | 2018-11-30 10:11 | RAD ---
Date of service: 11/29/2018 HISTORY: chest pain COMPARISON: 08/26/2018 TECHNIQUE: 1 view obtained. FINDINGS: LUNGS: No active pulmonary disease. PLEURA: No significant pleural effusion identified, no pneumothorax apparent. CARDIOVASCULAR: No aortic atherosclerotic calcification present. Normal cardiac size. No pulmonary vascular congestion. OSSEOUS STRUCTURES: No significant abnormalities. VISUALIZED UPPER ABDOMEN: Normal. OTHER FINDINGS: None. IMPRESSION: No active disease.
[2018-11-30] MEDS ORDERED: Naproxen 275 mg Tab PO SCH (11:45)
[2018-11-30 14:05] VITALS: BP 107/61; RESP 18; TEMP 98.2; O2SAT 94
--- NOTE | 2018-11-30 14:35 | CP.PCM.DIS ---
Provider - Provider Date of Admission: 11/30/18 02:04 Attending physician: Carla Costa DO Primary care physician: Dr. Jeronimo Peña Consults: 11/30/18 01:18 Physician Consult Routine Comment: Consulting Provider: Dayan Mendoza Consulting Physician: Dayan Mendoza Reason for Consult: cp - r/o ACS; resume ASA given recent GI bleed? Time Spent in preparation of Discharge (in minutes): 40 Diagnosis - Discharge Diagnosis (1) Musculoskeletal chest pain Status: Acute (2) Headache Status: Acute (3) Chronic anemia Status: Acute Hospital Course - Lab Results Lab Results: Most Recent Lab Values WBC 8.8 10^3/uL (4.5-11.0) D 11/29/18 22:40 RBC 4.03 10^6/uL (3.5-6.1) 11/29/18 22:40 Hgb 10.6 g/dL (12.0-16.0) L 11/29/18 22:40 Hct 32.6 % (36.0-48.0) L 11/29/18 22:40 MCV 80.9 fl (80.0-105.0) D 11/29/18 22:40 MCH 26.3 pg (25.0-35.0) 11/29/18 22:40 MCHC 32.5 g/dl (31.0-37.0) 11/29/18 22:40 RDW 13.9 % (11.5-14.5) 11/29/18 22:40 Plt Count 258 10^3/uL (120.0-450.0) 11/29/18 22:40 MPV 9.6 fl (7.0-11.0) 11/29/18 22:40 Neut % (Auto) 54.5 % (50.0-68.0) 11/29/18 22:40 Lymph % (Auto) 36.1 % (22.0-35.0) H 11/29/18 22:40 Gregory % (Auto) 5.0 % (1.0-6.0) 11/29/18 22:40 Eos % (Auto) 4.2 % (1.5-5.0) 11/29/18 22:40 Baso % (Auto) 0.2 % (0.0-3.0) 11/29/18 22:40 Lymph # (Auto) 3.2 (1.2-3.4) 11/29/18 22:40 Gregory # (Auto) 0.4 (0.1-0.6) 11/29/18 22:40 Eos # (Auto) 0.4 (0.0-0.7) 11/29/18 22:40 Baso # (Auto) 0.02 K/mm3 (0.0-2.0) 11/29/18 22:40 Absolute Neuts (auto) 4.82 (1.4-6.5) 11/29/18 22:40 PT 13.1 SECONDS (9.4-12.5) H 11/29/18 22:40 INR 1.18 11/29/18 22:40 APTT 31.4 Seconds (26.9-38.3) 11/29/18 22:40 Sodium 139 mmol/L (132-148) 11/29/18 22:40 Potassium 4.0 mmol/L (3.6-5.0) 11/29/18 22:40 Chloride 99 mmol/L (98-107) 11/29/18 22:40 Carbon Dioxide 27 mmol/L (21-33) 11/29/18 22:40 Anion Gap 16 (10-20) 11/29/18 22:40 BUN 21 mg/dL (7-21) 11/29/18 22:40 Creatinine 0.6 mg/dl (0.7-1.2) L 11/29/18 22:40 Est GFR ( Amer) > 60 11/29/18 22:40 Est GFR (Non-Af Amer) > 60 11/29/18 22:40 POC Glucose (mg/dL) 171 mg/dL (65-110) H 11/30/18 07:38 Random Glucose 243 mg/dL (70-110) H 11/29/18 22:40 Hemoglobin A1c 10.2 % (4.2-6.5) H D 11/29/18 22:40 Calcium 9.6 mg/dL (8.4-10.5) 11/29/18 22:40 Total Bilirubin 0.4 mg/dL (0.2-1.3) 11/29/18 22:40 AST 36 U/L (14-36) D 11/29/18 22:40 ALT 36 U/L (7-56) 11/29/18 22:40 Alkaline Phosphatase 56 U/L (38-126) 11/29/18 22:40 Troponin I < 0.01 ng/mL 11/30/18 11:30 Total Protein 7.7 g/dL (5.8-8.3) 11/29/18 22:40 Albumin 4.2 g/dL (3.0-4.8) 11/29/18 22:40 Globulin 3.5 gm/dL 11/29/18 22:40 Albumin/Globulin Ratio 1.2 (1.1-1.8) 11/29/18 22:40 Triglycerides 274 mg/dL (35-160) H 11/29/18 22:40 Cholesterol 165 mg/dL (130-200) 11/29/18 22:40 LDL Cholesterol Direct 81 mg/dL (0-129) 11/29/18 22:40 HDL Cholesterol 31 mg/dL (29-60) 11/29/18 22:40 TSH 3rd Generation 2.15 mIU/mL (0.46-4.68) 11/29/18 22:40 - Hospital Course Hospital Course: Kolby Costa DO PGY1 - Hospitalist DC Summary Patient is a 63 year old [place] Speaking female with past medical history of TIAx2, T2DM (insulin dependent), HTN, HLD, GERD, Non-obstructive CAD (cath 08/2016; no stent placement), arthritis, obesity (BMI 30), hepatitis C (treated), depression presenting with chief complaint headaches and chest pain. Admitted for chest pain acs r/o. Patient had troponin negative x3; and EKG w/o ischemic changes. Upon evaluation morning after admission patient was reporting significant improvement in chest pain as well as headache. On exam chest pain appears to be reproducible. Dr. Mendoza evaluated patient who reports that no further inpatient cardiology work up needed at this time, and she is to follow up with him in office. Of note patient did have a recent Hx of GI bleed and subsequently ASA was held; Upon discharge Dr. Mendoza has recommended to resume aspirin. CXR upon admission was also wnl. Patient was seen and evaluated morning prior to discharge No acute events reported overnight; Reported significant improvement in chest pain and headache; no complaints of shortness of breath, abd pain, n/v/d/c, weakness, numbness/tingling. Discharge instructions, medications, and follow up plan discussed w/ patient in detail. Patient was seen, and evaluated w/ attending Dr. Carla Costa Discharge Exam - Head Exam Head Exam: ATRAUMATIC, NORMAL INSPECTION, NORMOCEPHALIC - Eye Exam Eye Exam: EOMI, PERRL - Respiratory Exam Respiratory Exam: Clear to PA & Lateral, NORMAL BREATHING PATTERN - Cardiovascular Exam Cardiovascular Exam: RRR. absent: Systolic Murmur Additional comments: L Sternal border reproducible chest pain - GI/Abdominal Exam GI & Abdominal Exam: Normal Bowel Sounds, Soft. absent: Tenderness - Extremities Exam Extremities exam: pedal pulses present Additional comments: no edema bl - Neurological Exam Neurological exam: Alert, CN II-XII Intact, Oriented x3 - Psychiatric Exam Psychiatric exam: Normal Affect, Normal Mood - Skin Skin Exam: Dry, Intact, Warm Discharge Plan - Discharge Medications Prescriptions: Aspirin 81 mg PO DAILY #30 tab.chew - Follow Up Plan Condition: GOOD Disposition: HOME/ ROUTINE Instructions: Headache, Adult (DC), Chest Pain (DC) Additional Instructions: Please follow up with your primary care doctor, Dr. Peña, within 3-5 days Please follow up with parachute marker, Dr. Mendoza, within one week Resume your home medications Please START taking Aspirin 81mg daily Please return or call 911 if symptoms return or you have new concerning sympt oms. Referrals: Jeronimo Peña MD [Staff Provider] - Dayan Mendoza MD [Staff Provider] -
[2018-11-30 15:28] VITALS: PULSE 93
--- NOTE | 2018-11-30 21:44 | CON ---
DATE: 11/30/2018 LOCATION: The patient is in room 260, bed 2. REASON FOR CONSULTATION: Chest pain. HISTORY OF PRESENT ILLNESS: The patient is a 63-year-old female, known case of diabetes; hypertension; GERD; nonobstructive coronary artery disease, on catheterization of 08/2016; obesity; arthritis; and hepatitis C for which she was treated and depression. She was admitted because she has a localized chest pain around the left lower sternal border and that spot is tender and she also complained similar tenderness with the pain in the back and she also complained some headache. Denies any exertional chest pain. The patient is known case of asthma, COPD, and obstructive sleep apnea. She has been taking hand nebulizer treatment at home. The patient is now comfortable without any respiratory distress, but she still has local tenderness with the pain. PREVIOUS CARDIAC WORKUP: The patient had a stress test on 09/05/2016, which showed ischemia, for which the patient had catheterization on 09/26/2016, which showed only PLV branch was obstructed 65%, not suitable for angioplasty. Other vessels did not show any significant blockage. Ejection fraction was about 65%. The patient's last echo was on 09/25/2017 and it showed LV ejection fraction 57%, mild aortic regurgitation, and [id number] mitral regurgitation. Bubble study was negative for PFO. The patient had TIA, so that is why this bubble study was done at that time. PAST MEDICAL HISTORY: As mentioned before, the patient is known case of hypertension, diabetes, TIA, asthma, COPD, obstructive sleep apnea, obesity, depression, GERD, hepatitis C for which he has been treated, nonobstructive coronary artery disease, on cath in 08/2016 and depression. The patient also had hysterectomy, cholecystectomy, and had surgery on the nose. PERSONAL HISTORY: She denies smoking. Denies drinking. ALLERGIES: THE PATIENT IS ALLERGIC TO PENICILLIN. HOME MEDICATIONS: The patient takes Feosol 325 p.o. b.i.d., 1 mg p.o. daily, cetirizine HCl 10 mg p.o. b.i.d., Ventolin hand nebulizer therapy, vitamin D3 50,000 units weekly, insulin glargine 30 units subcutaneously a.m. and at bedtime, insulin glargine 34 units subcutaneously every p.m., losartan and hydrochlorothiazide 100/25 mg one daily, and gabapentin 600 mg p.o. daily. REVIEW OF SYSTEMS: All other systems reviewed; positive mentioned in the history. PHYSICAL EXAMINATION: VITAL SIGNS: Blood pressure 126/68, respirations 21, pulse 91, and temperature 98.5. HEENT: Head is normocephalic. Eyes; pupils normal. Conjunctivae; slightly pale. NECK: JVP low. Carotids equal. THORAX: AP diameter normal. LUNGS: Clear. CHEST: The patient has local tenderness at the area of pain and this pain gets worse on inspiration and also [id number] movement, it is localized point, also same localized point in the back, and he also complained some headache. CARDIOVASCULAR: S1 and S2. ABDOMEN: Soft. No tenderness. No organomegaly. EXTREMITIES: No clubbing. No cyanosis. LABORATORY DATA: WBC 8.8, hemoglobin 10.6, hematocrit 32.6, and platelet 258. Sodium 139, potassium 4, BUN 21, creatinine 0.6, and sugar 243. Calcium 9.6. AST and ALT normal. Troponin x2 below 0.01. Triglycerides 274, cholesterol 165, LDL 81, and TSH 2.15. Chest x-ray; no active disease. EKG showed regular sinus rhythm with rate of 103 per minute, otherwise normal EKG. DIAGNOSES: Chest pain, musculoskeletal; hypertension; diabetes; chronic obstructive pulmonary disease; asthma; obstructive sleep apnea; gastroesophageal reflux disease; anemia; obesity; history of depression; headache; arthritis; and hepatitis C treated. PLAN: The patient's chest pain is musculoskeletal type of pain; so it can be treated with antiinflammatory drugs. The patient can go on Ecotrin 81 mg daily, losartan 100 daily, ferrous sulfate 324 b.i.d., and hydrochlorothiazide 25 daily. Insulin as ordered. Lipitor 10 daily, gabapentin 600 mg daily, and Protonix 40 daily. Thank you and we will follow with you. Dayan Mendoza MD
[2018-11-30] MEDS ORDERED: Insulin Detemir 100 units/ml Vial (Levemir) SC SCH (22:00)
[2018-12-01] MEDS ORDERED: Pantoprazole 40 mg EC Tab PO SCH (06:00)
--- NOTE | 2018-12-01 09:18 | CARD ---
APPROVED REPORT Date of service: 11/29/2018 EKG Measurement Heart [id number] <Conclusion> Sinus tachycardia Otherwise normal ECG
[2018-12-01] MEDS ORDERED: Pantoprazole 40 mg EC Tab PO ONE (14:23)
== END 2018-11-30 17:16 | disposition home or self-care (01) ==
LOC: ED 22:25 → ERH 11-30 02:04 → 2RNO 11-30 03:31
PROVIDERS: ADMIT Internal Medicine; ATTEND Hospitalist
DX: R07.89 Other chest pain (principal); D64.9 Anemia, unspecified; E66.9 Obesity, unspecified; E11.9 Type 2 diabetes mellitus without complications; G47.33 Obstructive sleep apnea (adult) (pediatric); J44.9 Chronic obstructive pulmonary disease, unspecified; I25.10 Atherosclerotic heart disease of native coronary artery without angina pectoris; R51 Headache; I10 Essential (primary) hypertension; K21.9 Gastro-esophageal reflux disease without esophagitis; H91.93 Unspecified hearing loss, bilateral; E78.5 Hyperlipidemia, unspecified; Z86.73 Personal history of transient ischemic attack (TIA), and cerebral infarction without residual deficits; Z79.4 Long term (current) use of insulin; Z86.19 Personal history of other infectious and parasitic diseases; Z68.30 Body mass index [BMI] 30.0-30.9, adult; Z98.84 Bariatric surgery status; Z97.4 Presence of external hearing-aid
CPT/HCPCS: 36415; 71045; 80053; 80061; 82948; 83036; 84443; 84484; 85025; 85610; 85730; 96374; G0378; J2270